=== PATIENT | male | born 1960 | race Caucasian/White ===

== ENCOUNTER 2019-03-18 14:59 | Inpatient (IN) | payer OTHER ==
[~2019-03-18] VITALS: Ht 178 cm; Wt 96.7 kg
--- NOTE | 2019-03-18 15:08 | NUR ---
SHIRA SHAH PLACED ON PT.
[2019-03-18 15:26] LABS: BASOPHILS % (AUTO) 0 % (0-10); EOSINOPHILS % (AUTO) 0 % (0-10); HEMATOCRIT 62 % (40-54); LYMPHOCYTES # (AUTO) 2.7 X 10^3 (1.0-4.0); LYMPHOCYTES % (AUTO) 10 % (12-44); MEAN CORPUSCULAR HEMOGLOBIN 31 PG (25-34); MEAN CORPUSCULAR HGB CONC 34 G/DL (32-36); MEAN CORPUSCULAR VOLUME 92 FL (80-99); MONOCYTES # (AUTO) 1.6 X 10^3 (0.0-1.0); MONOCYTES % (AUTO) 6 % (0-12); NEUTROPHILS # (AUTO) 21.4 X 10^3 (1.8-7.8); NEUTROPHILS % (AUTO) 83 % (42-75); PLATELET COUNT 110 10^3/uL (130-400); RED CELL DISTRIBUTION WIDTH 16.2 % (10.0-14.5); WHITE BLOOD COUNT 25.7 10^3/uL (4.3-11.0)
--- NOTE | 2019-03-18 15:30 | ED General ---
General Chief Complaint: Exposure Stated Complaint: AMS Source of Information: Patient Exam Limitations: No Limitations (LAZ DICKENS APRN) History of Present Illness Date Seen by Provider: Mar 18, 2019 Time Seen by Provider: 15:23 Initial Comments To ER with reports of altered mental status. He was reportedly not seen by a close friend for one week, the friend went to check on him today and found him to have an altered mental status. EMS was then summoned, on their arrival he was in fact altered, very cold to the touch and lethargic. She was found to be between 85 and 87, he is reported to be an alcoholic, the house was in a state of squalor . But while high and the toilet keeping with toilet paper suggesting no clubbing. There was also no heat in the house. Reportedly, he had been to [facility] last week and received an inhaler steroid and antibiotic, the friend isn't sure what for. Timing/Duration: 1 Week (up to 1 week) Severity: Moderate Associated Systoms: Denies Symptoms (LAZ DICKENS APRN) Allergies and Home Medications Allergies Coded Allergies: No Known Drug Allergies (Unverified , 03/18/19) Patient Home Medication List Home Medication List Reviewed: Yes (LAZ DICKENS APRN) Review of Systems Review of Systems Constitutional: see HPI, other (unable to obtain) (LAZ DICKENS APRN) Physical Exam Vital Signs Vital Signs - First Documented 03/18/19 15:08 Temp 30.8 Pulse 58 Resp 18 B/P (MAP) 116/100 (105) Pulse Ox 99 O2 Delivery Room Air (SHEREEN CASTILLO MD) Vital Signs Capillary Refill : (LAZ DICKENS APRN) Height, Weight, BMI Height: '" Weight: lbs. oz. kg; BMI Method: General Appearance: Chronically ill, Thin, Other (eyes are open, groaning mumbling verbal responses, GCS 11) Eyes: Bilateral Eye Normal Inspection, Bilateral Eye PERRL HEENT: PERRL/EOMI, Normal ENT Inspection, Other (no outwardly visible sign of head trauma) Neck: Full Range of Motion, Normal Inspection Respiratory: Normal Breath Sounds, No Accessory Muscle Use, No Respiratory Distress Cardiovascular: Normal Peripheral Pulses, Bradycardia Gastrointestinal: Non Tender, Soft Extremity: Slow Capillary Refill, Other (hands and feet, penis nose and lips are cyanotic and cold to the touch) Skin: Cyanosis, Pallor (LAZ DICKENS APRN) Focused Exam Lactate Level 03/18/19 15:35: Lactic Acid Level 2.89*H (SHEREEN CASTILLO MD) Lactic Acid Level Laboratory Tests Test 03/18/19 15:35 Lactic Acid Level 2.89 MMOL/L (0.50-2.00) *H (SHEREEN CASTILLO MD) Progress/Results/Core Measures Suspected Sepsis SIRS Temperature: Pulse: Respiratory Rate: Laboratory Tests 03/18/19 15:10: White Blood Count 25.7H Blood Pressure / Mean: 03/18/19 00:00: Laboratory Tests 03/18/19 15:10: Creatinine 3.32H, INR Comment 1.3, Platelet Count 110L, Total Bilirubin 4.6H (LAZ DICKENS APRN) Results/Orders Lab Results Laboratory Tests Test 03/18/19 15:07 03/18/19 15:10 03/18/19 15:28 03/18/19 15:30 Range/Units Urine Color BANDAR H Urine Clarity CLEAR Urine pH 5 5-9 Urine Specific [place] 1.015 L 1.016-1.022 Urine Protein 2+ H NEGATIVE Urine Glucose (UA) NEGATIVE NEGATIVE Urine Ketones 2+ H NEGATIVE Urine Nitrite POSITIVE H NEGATIVE Urine Bilirubin 2+ H NEGATIVE Urine Urobilinogen 8 H NORMAL MG/DL Urine Leukocyte Esterase 1+ H NEGATIVE Urine RBC (Auto) 1+ H NEGATIVE Urine RBC NONE /HPF Urine WBC RARE /HPF Urine Crystals NONE /LPF Urine Bacteria TRACE /HPF Urine Casts NONE /LPF Urine Mucus NEGATIVE /LPF Urine Culture Indicated YES Urine Opiates Screen NEGATIVE NEGATIVE Urine Oxycodone Screen NEGATIVE NEGATIVE Urine Methadone Screen NEGATIVE NEGATIVE Urine Propoxyphene Screen NEGATIVE NEGATIVE Urine Barbiturates Screen NEGATIVE NEGATIVE Ur Tricyclic Antidepressants Screen NEGATIVE NEGATIVE Urine Phencyclidine Screen NEGATIVE NEGATIVE Urine Amphetamines Screen NEGATIVE NEGATIVE Urine Methamphetamines Screen NEGATIVE NEGATIVE Urine Benzodiazepines Screen NEGATIVE NEGATIVE Urine Cocaine Screen NEGATIVE NEGATIVE Urine Cannabinoids Screen NEGATIVE NEGATIVE White Blood Count 25.7 H 4.3-11.0 10^3/uL Red Blood Count 6.74 H 4.35-5.85 10^6/uL Hemoglobin 21.0 H 13.3-17.7 G/DL Hematocrit 62 H 40-54 % Mean Corpuscular Volume 92 80-99 FL Mean Corpuscular Hemoglobin 31 25-34 PG Mean Corpuscular Hemoglobin Concent 34 32-36 G/DL Red Cell Distribution Width 16.2 H 10.0-14.5 % Platelet Count 110 L 130-400 10^3/uL Mean Platelet Volume 7.4-10.4 FL Neutrophils (%) (Auto) 83 H 42-75 % Lymphocytes (%) (Auto) 10 L 12-44 % Monocytes (%) (Auto) 6 0-12 % Eosinophils (%) (Auto) 0 0-10 % Basophils (%) (Auto) 0 0-10 % Neutrophils # (Auto) 21.4 H 1.8-7.8 X 10^3 Lymphocytes # (Auto) 2.7 1.0-4.0 X 10^3 Monocytes # (Auto) 1.6 H 0.0-1.0 X 10^3 Eosinophils # (Auto) 0.0 0.0-0.3 10^3/uL Basophils # (Auto) 0.0 0.0-0.1 10^3/uL Neutrophils % (Manual) 75 % Lymphocytes % (Manual) 10 % Monocytes % (Manual) 10 % Band Neutrophils 5 % Toxic Granulation 1+ Poikilocytosis MODERATE Anisocytosis Tear Drop Cells MODERATE Prothrombin Time 16.5 H 12.2-14.7 SEC INR Comment 1.3 0.8-1.4 Activated Partial Thromboplast Time 47 H 24-35 SEC Sodium Level 149 H 135-145 MMOL/L Potassium Level 2.1 *L 3.6-5.0 MMOL/L Chloride Level 101 98-107 MMOL/L Carbon Dioxide Level 21 21-32 MMOL/L Anion Gap 27 H 5-14 MMOL/L Blood Urea Nitrogen 80 H 7-18 MG/DL Creatinine 3.32 H 0.60-1.30 MG/DL Estimat Glomerular Filtration Rate 19 BUN/Creatinine Ratio 24 Glucose Level 208 H 70-105 MG/DL Calcium Level 10.2 H 8.5-10.1 MG/DL Corrected Calcium 10.1 8.5-10.1 MG/DL Magnesium Level 4.6 H 1.6-2.4 MG/DL Total Bilirubin 4.6 H 0.1-1.0 MG/DL Aspartate Amino Transf (AST/SGOT) 35 H 5-34 U/L Alanine Aminotransferase (ALT/SGPT) 149 H 0-55 U/L Alkaline Phosphatase 110 40-136 U/L Total Creatine Kinase 197 30-200 U/L Myoglobin 1160.0 H 10.0-92.0 NG/ML Total Protein 8.5 H 6.4-8.2 GM/DL Albumin 4.1 3.2-4.5 GM/DL Serum Alcohol < 10 <10 MG/DL Blood Gas Puncture Site R RAD Blood Gas Patient Temperature 30.8 Arterial Blood pH 7.49 H 7.37-7.43 Arterial Blood Partial Pressure CO2 22 L 35-45 MMHG Arterial Blood Partial Pressure O2 99 H 79-93 MMHG Arterial Blood HCO3 18 L 23-27 MMOL/L Arterial Blood Total CO2 18.4 L 21.0-31.0 MMOL/L Arterial Blood Oxygen Saturation 98 94-100 % Arterial Blood Base Excess -6.4 L -2.5-2.5 MMOL/L Dariel Test YES-POS Blood Gas Ventilator Setting NO Blood Gas Inspired Oxygen ROOM AIR Troponin I < 0.028 <0.028 NG/ML Test 03/18/19 15:35 Range/Units Lactic Acid Level 2.89 *H 0.50-2.00 MMOL/L (SHEREEN CASTILLO MD) My Orders Orders - SHEREEN CASTILLO MD Troponin I (03/18/19 16:28) Ns Iv 1000 Ml (Sodium Chloride 0.9%) (03/18/19 16:28) Lactated Ringers (Lr 1000 Ml Iv Solution (03/18/19 17:18) (SHEREEN CASTILLO MD) Medications Given in ED Current Medications Medications Dose Ordered Sig/Miguel A Route Start Time Stop Time Status Last Admin Dose Admin Piperacillin Sod/ Tazobactam Sod 4.5 gm/Sodium Chloride 100 ml @ 200 mls/hr ONCE ONCE IV 03/18/19 16:00 03/18/19 16:29 DC 03/18/19 16:51 200 MLS/HR Sodium Chloride 1,000 ml @ 0 mls/hr Q0M ONCE IV 03/18/19 16:28 03/18/19 16:30 DC 03/18/19 16:51 1,000 MLS/HR (SHEREEN CASTILLO MD) Vital Signs/I&O 03/18/19 15:08 Temp 30.8 Pulse 58 Resp 18 B/P (MAP) 116/100 (105) Pulse Ox 99 O2 Delivery Room Air (SHEREEN CASTILLO MD) Vital Signs/I&O Capillary Refill : (LAZ DICKENS APRN) Progress Note : Progress Note Seen and evaluated the patient with Laz Dickens APRN and agree with above except as indicated. Patient is quite cold with initial temperature near 30 C. Active warming with bear hugger initiated. Orders reviewed and I agree and include labs, EKG, CT head, chest x-ray will cultures and lactic acid. UA and Holman catheter obtained. Urine Brown concerning for myoglobinemia. Patient may have been on the floor for up to a week and EMS reports that he was not incontinent of urine at the scene. Concerns for significant dehydration. In this is running currently and we will continue with warm fluids when that is done. EKG does show left bundle branch block but no findings concerning for hyperkalemia. 1633: Potassium replacement initiated and magnesium ordered as well as troponin. Patient will be admitted to the ICU. 1710: I did discuss the case with Dr. Kilpatrick. Patient has received Zosyn 4.5 g IV. 1750: I did discuss the case with Dr. Shepard. We will add third liter of fluid with 1 L of LR now. This will exceeded 30 mL/kg IV bolus for severe sepsis. Patient is still at 31.3C currently. He is moaning and answering some simple questions. 1725: I attest focused exam at this time. Patient to the ICU. We will continue fluids after a 250 per hour 4 hours and then 150 an hour. He does have slow urine flow currently but does have flow. (SHEREEN CASTILLO MD) ECG Initial ECG Impression Date: Mar 18, 2019 Initial ECG Impression Time: 15:24 Initial ECG Rate: 58 Comment Sinus rhythm with left bundle-branch block. Some artifact noted making Read is somewhat more difficult. Does appear to have P waves. No evidence of ST elevation [place]. Interpreted by me. (SHEREEN CASTILLO MD) Diagnostic Imaging Diagonstic Imaging: Xray, CT Comments NAME: MARGARITO MERRITT [facility] REC#: [id number] PT STATUS: REG ER : 1960 PHYSICIAN: LAZ DICKENS APRN ADMIT DATE: 03/18/19/ER Draft POSDate of Exam:03/18/19 CHEST 1 VIEW, AP/PA ONLY INDICATION: Altered mental status. TECHNIQUE: A frontal chest was obtained at 3:31 PM. FINDINGS: The heart and mediastinal silhouette are normal. There is a normal variant of azygos lobe in the right upper lobe. There is some minimal right basilar atelectasis. There is some patchy infiltrate versus atelectasis in the left lateral base. There is no pneumothorax or pleural fluid. IMPRESSION: There is some patchy infiltrate versus atelectasis in the left lateral base. There is some minimal right basilar atelectasis. There is no other abnormal finding. Followup is recommended as clinically warranted. Dictated on workstation # [id number] Dict: 03/18/19 1548 Trans: 03/18/19 1551 [id number] Interpreted by: JENNIFER SESAY MD Electronically signed by: (LAZ DICKENS APRN) Diagonstic Imaging: CT Plain Films/CT/US/NM/MRI: head Comments [facility]. POS [place], [place] POS NAME: MARGARITO MERRITT [facility] REC#: [id number] PT STATUS: REG ER : 1960 PHYSICIAN: LAZ DICKENS APRN ADMIT DATE: 03/18/19/ER Draft POSDate of Exam:03/18/19 CT HEAD WO INDICATION: Altered mental status. TECHNIQUE: Routine non contrast-enhanced axial images were obtained from the skull base to the vertex. Auto Exposure Controls were utilized during the CT exam to meet ALARA standards for radiation dose reduction. COMPARISON: None. FINDINGS: The ventricles and cortical sulci are diffusely prominent, compatible with age-related volume loss. There is no midline shift or mass-effect. No acute intra-axial hemorrhage is seen. There are no abnormal areas of increased or decreased density to suggest acute hemorrhage or edema. No extra-axial masses or collections are present. The bony calvarium is intact. The visualized paranasal sinuses are unremarkable. The mastoid air cells are clear. IMPRESSION: 1. No acute intracranial abnormality. No CT evidence of mass, acute infarct or intracranial hemorrhage. Dictated on workstation # [id number] Dict: 03/18/19 1600 Trans: 03/18/19 1603 [id number] Interpreted by: SIERRA FELDMAN MD Electronically signed by: (SHEREEN CASTILLO MD) Departure Communication (Admissions) Time/Spoke to Admitting Phy: 17:10 (SHEREEN CASTILLO MD) Impression Primary Impression: Severe sepsis Additional Impressions: Left lower lobe pneumonia Qualified Codes: J18.1 - Lobar pneumonia, unspecified organism Urinary tract infection Qualified Codes: N30.00 - Acute cystitis without hematuria Acute renal failure Qualified Codes: N17.9 - Acute kidney failure, unspecified Hypothermia Qualified Codes: T68.XXXA - Hypothermia, initial encounter Disposition: 09 ADMITTED INPATIENT Condition: Critical Admissions Decision to Admit Reason: Admit from ER (General) Decision to Admit/Date: Mar 18, 2019 Time/Decision to Admit Time: 17:10 (SHEEREN CASTILLO MD) LAZ DICKENS APRN Mar 18, 2019 15:30 SHEREEN WALKER MD Mar 18, 2019 16:35 POS
[2019-03-18 15:33] LABS: ABG BASE EXCESS -6.4 MMOL/L (-2.5-2.5); ABG OXYGEN SATURATION 98 % (94-100); ABG PCO2 22 MMHG (35-45); ABG PH 7.49 (7.37-7.43); ABG PO2 99 MMHG (79-93); ABG TCO2 18.4 MMOL/L (21.0-31.0)
[2019-03-18 15:34] LABS: ALLENS TEST YES-POS; INSPIRED O2 ROOM AIR; PATIENT TEMP 30.8; VENTILATOR NO
[2019-03-18 15:37] LABS: BILIRUBIN,URINE 2+ (NEGATIVE); CLARITY,URINE CLEAR; COLOR,URINE AMBER; GLUCOSE, URINE (UA) NEGATIVE (NEGATIVE); KETONES,URINE 2+ (NEGATIVE); LEUKOCYTE ESTERASE ,URINE 1+ (NEGATIVE); NITRITE,URINE POSITIVE (NEGATIVE); PH,URINE 5 (5-9); PROTEIN,URINE 2+ (NEGATIVE)
--- NOTE | 2019-03-18 15:39 | NUR ---
WHEN ANSWERING QUESTIONS ABOUT ETOH USE, ACCORDING TO EMS THE PT'S FRIEND WHO FOUND HIM DOWN STATED THAT THE PT IS AN ALCOHOLIC WITH EVERYDAY USE.
--- NOTE | 2019-03-18 15:40 | NUR ---
PT'S FRIEND ALSO STATED PT SMOKED 1-2 PACKS A DAY.
[2019-03-18 15:50] LABS: BACTERIA,URINE TRACE /HPF; WBC,URINE RARE /HPF
[2019-03-18 15:50] LABS: INR 1.3 (0.8-1.4); PROTHROMBIN TIME PATIENT 16.5 SEC (12.2-14.7)
[2019-03-18 15:51] LABS: ALANINE AMINOTRANSFERASE 149 U/L (0-55); ALBUMIN 4.1 GM/DL (3.2-4.5); ALKALINE PHOSPHATASE 110 U/L (40-136); BILIRUBIN,TOTAL 4.6 MG/DL (0.1-1.0); BUN/CREATININE RATIO 24; CALCIUM 10.2 MG/DL (8.5-10.1); CARBON DIOXIDE 21 MMOL/L (21-32); CHLORIDE 101 MMOL/L (98-107); CREATINE KINASE 197 U/L (30-200); CREATININE SERUM 3.32 MG/DL (0.60-1.30); GFR ESTIMATED 19; GLUCOSE 208 MG/DL (70-105); SODIUM 149 MMOL/L (135-145); TOTAL PROTEIN 8.5 GM/DL (6.4-8.2)
--- NOTE | 2019-03-18 15:51 | Diagnostic Imaging Report ---
INDICATION: Altered mental status. TECHNIQUE: A frontal chest was obtained at 3:31 PM. FINDINGS: The heart and mediastinal silhouette are normal. There is a normal variant of azygos lobe in the right upper lobe. There is some minimal right basilar atelectasis. There is some patchy infiltrate versus atelectasis in the left lateral base. There is no pneumothorax or pleural fluid. IMPRESSION: There is some patchy infiltrate versus atelectasis in the left lateral base. There is some minimal right basilar atelectasis. There is no other abnormal finding. Followup is recommended as clinically warranted. Dictated by: Dictated on workstation # [id number]
[2019-03-18 15:53] LABS: POTASSIUM 2.1 MMOL/L (3.6-5.0)
[2019-03-18] MEDS ORDERED: PIPERACILLIN SODIUM/TAZOBACTAM 4.5 GM in NS (IVPB) 100 ML IV ONE (16:00)
--- NOTE | 2019-03-18 16:00 | NUR ---
1 LITER NS STARTED BY EMS IN AT THIS TIME.
--- NOTE | 2019-03-18 16:03 | Diagnostic Imaging Report ---
INDICATION: Altered mental status. TECHNIQUE: Routine non contrast-enhanced axial images were obtained from the skull base to the vertex. Auto Exposure Controls were utilized during the CT exam to meet ALARA standards for radiation dose reduction. COMPARISON: None. FINDINGS: The ventricles and cortical sulci are diffusely prominent, compatible with age-related volume loss. There is no midline shift or mass-effect. No acute intra-axial hemorrhage is seen. There are no abnormal areas of increased or decreased density to suggest acute hemorrhage or edema. No extra-axial masses or collections are present. The bony calvarium is intact. The visualized paranasal sinuses are unremarkable. The mastoid air cells are clear. IMPRESSION: 1. No acute intracranial abnormality. No CT evidence of mass, acute infarct or intracranial hemorrhage. Dictated by: Dictated on workstation # [id number]
[2019-03-18 16:07] LABS: AMPHETAMINE SCREEN, URINE NEGATIVE (NEGATIVE); BARBITURATE SCREEN URINE NEGATIVE (NEGATIVE); BENZODIAZEPINES SCREEN URINE NEGATIVE (NEGATIVE); CANNABINOID SCREEN, URINE NEGATIVE (NEGATIVE); COCAINE SCREEN URINE NEGATIVE (NEGATIVE); METHADONE STAT NEGATIVE (NEGATIVE); METHAMPHETAMINE SCREEN URINE S NEGATIVE (NEGATIVE); OPIATE SCREEN URINE NEGATIVE (NEGATIVE); OXYCODONE STAT NEGATIVE (NEGATIVE); PROPOXYPHENE STAT NEGATIVE (NEGATIVE); TRICYCLIC ANTIDEPRESSANTS SCRE NEGATIVE (NEGATIVE)
[2019-03-18 16:15] LABS: BAND NEUTROPHILS 5 %; LYMPHOCYTES % (MANUAL) 10 %; MONOCYTES % (MANUAL) 10 %; NEUTROPHILS % (MANUAL) 75 %; POIKILOCYTOSIS MODERATE; TEAR DROP CELLS MODERATE
[2019-03-18 16:16] LABS: TOXIC GRANULATION/VACUOLAZATIO 1+
[2019-03-18] MEDS ORDERED: NS IV 1000 ML 1,000 ML IV ONE (16:28)
[2019-03-18] MEDS: POTASSIUM CL 10MEQ/50ML IVPB 50 ML IV SCH ×2 (16:51→18:50)
[2019-03-18] MEDS ORDERED: LACTATED RINGERS 1,000 ML IV ONE (17:18)
--- NOTE | 2019-03-18 17:40 | NUR ---
PT ABLE TO FOLLOW COMMANDS SUCH STRAIGHTEN ARM FOR B/P CUFF. TRYING TO SPEAK BUT UNABLE TO SAY WHERE HE IS.
--- NOTE | 2019-03-18 18:03 | NUR ---
Pt arrives to room cu-7 via cart with ed nurse. pt placed in icu bed and this nurse and 2 other rn's and journeyman powerhouse operator proceeded to clean pt for approximately 40 minutes and placed pt on monitors and bear hugger. pt still somewhat incoherent but is responding to voiced questions. pt covered in layers of dirt and feces.
[2019-03-18 18:15] VITALS: BP 128/81
[2019-03-18] MEDS ORDERED: EPINEPHrine 1 MG INJECTION 2 MG in NS (IVPB) 250 ML IV SCH (18:30)
[2019-03-18] MEDS ORDERED: CATHETER FLUSH 10 ML SYR IV PRN (18:30)
[2019-03-18] MEDS ORDERED: LACTATED RINGERS 1,000 ML IV SCH (18:30)
[2019-03-18] MEDS: NOREPINEPHRINE 4 MG in NS (IVPB) 250 ML IV SCH (18:46)
[2019-03-18] MEDS: VASOPRESSIN INJECTION 20 UNIT in NORMAL SALINE 100 ML IV SCH (18:46)
[2019-03-18 19:00] VITALS: BP 99/65
--- NOTE | 2019-03-18 19:32 | History & Physical-Hospitalist ---
History of Present Illness HPI/Chief Complaint Chief complaint: Found down at home HPI: This is a 59yo[facility] clinic clinic Pt of [facility] who was brought in after being found down at home by his friend, probably for about three days. Pt was foundto be hypothermic and severe UTI with renal failure and pneumonia. Pt remains with altered mental status and appears to be gravely ill. His prognosis is extremely poor. Friend is at the bedside and does not know of any family that he has. Source: RN/MD Exam Limitations: clinical condition Date Seen 03/18/19 Time Seen by a Provider: 17:00 Attending Physician Tish Kilpatrick DO [facility] Referring Physician Date of Admission Mar 18, 2019 at 17:20 Home Medications & Allergies Home Medications Reviewed patient Home Medication Reconciliation performed by pharmacy medication reconciliations crime scene technician and/or nursing. Patients Allergies have been reviewed. Allergies Allergies Coded Allergies No Known Drug Allergies (Ntasenjtse48/6/19) Past Cgyllvb-Xoqycs-Nyxakm Hx Past Med/Social Hx: Reviewed Nursing Past Med/Soc Hx, Reviewed and Corrections made Patient Social History Marrital Status: single Alcohol Use: Regular Use Recreational Drug Use: No (UNABLE TO ANSWER ) Smoking Status: Current Everyday Smoker Type Used: Cigarettes Recent Foreign Travel: No Contact w/other who traveled: No Recent Infectious Disease Expo: No Review of Systems Constitutional: see HPI Physical Exam Physical Exam Vital Signs Vital Signs - First Documented 03/18/19 15:08 Temp 30.8 Pulse 58 Resp 18 B/P (MAP) 116/100 (105) Pulse Ox 99 O2 Delivery Room Air Capillary Refill : Greater Than 3 Seconds Height, Weight, BMI Height: '" Weight: lbs. oz. kg; 25.00 BMI Method: General Appearance: Chronically ill, Cachetic, Moderate Distress Respiratory: Decreased Breath Sounds, Wheezing Cardiovascular: Regular Rate, Rhythm Neurologic/Psychiatric: Alert Results Results/Procedures Labs Laboratory Tests 03/18/19 15:10 03/19/19 03:10 03/19/19 12:55 Patient resulted labs reviewed. Assessment/Plan Admission Diagnosis Assessment: AMS ARF Found down at home for 3 days Cachexia ETOHism Plan: Monitor in ICU Hypothermia treatment Admission Status: Inpatient Order (span 2 midnights) Reason for Inpatient Admission: multisystem organ failure Diagnosis/Problems Diagnosis/Problems (1) Severe sepsis Status: Acute (2) Hypothermia Status: Acute Qualifiers: Encounter type: initial encounter Qualified Codes: T68.XXXA - Hypothermia, initial encounter (3) Acute renal failure Status: Acute Qualifiers: Acute renal failure type: unspecified Qualified Codes: N17.9 - Acute kidney failure, unspecified (4) Left lower lobe pneumonia Status: Acute Qualifiers: Pneumonia type: due to unspecified organism Qualified Codes: J18.1 - Lobar pneumonia, unspecified organism (5) Urinary tract infection Status: Acute Qualifiers: Urinary tract infection type: acute cystitis Hematuria presence: without hematuria Qualified Codes: N30.00 - Acute cystitis without hematuria TISH KILPATRICK DO Mar 18, 2019 19:32 POS
[2019-03-18 20:00] VITALS: BP 99/63
[2019-03-18 21:00] VITALS: BP 113/64
[2019-03-18 22:00] VITALS: BP 107/57
[2019-03-18] MEDS: PIPERACILLIN/TAZO 4.5 GM/NS 100 ML IV SCH ×2 (22:22)
[2019-03-18] MEDS: LACTATED RINGERS 1,000 ML IV SCH (22:28)
[2019-03-18 23:00] VITALS: BP 117/63
[2019-03-19] VITALS (23 sets, daily range): BP systolic 102–137; BP diastolic 55–86
[2019-03-19] MEDS: NOREPINEPHRINE 4 MG in NS (IVPB) 250 ML IV SCH ×3 (02:39→19:37)
[2019-03-19] MEDS: VASOPRESSIN INJECTION 20 UNIT in NORMAL SALINE 100 ML IV SCH ×3 (02:40→19:37)
--- NOTE | 2019-03-19 03:41 | Pulmonary Consultation ---
LOUIS GILMORE A MEDICAL STUDENT 03/19/19 0341: History of Present Illness History of Present Illness Date of Consultation 03/19/19 03:33 Time Seen by Provider: 03:34 Date of Admission History of Present Illness This is a 59 year old male who was admitted to the ICU from the ED for altered mental status. Pt was found to be altered and had a temperature of 30C on arrival to ED. Pt was started on active warming with Severiano hugger and warm IVF. Pt temperature currently 37.5C. Pt was found to have hypokalemia and was started on potassium replacement. Per report, pt was found by a friend who stated that the patient is reported to be an alcoholic and was living in a house that was without heat and was recently seen at [facility] and given an antibiotic and inhaler. Pt still currently confused and sleepy but arousable. Allergies and Home Medications Allergies Coded Allergies: No Known Drug Allergies (Unverified , 03/18/19) Past Yyhcyjx-Vhnedo-Qlkueb Hx Patient Social History Alcohol Use: Regular Use Recreational Drug Use: No (UNABLE TO ANSWER ) Smoking Status: Current Everyday Smoker Type Used: Cigarettes Recent Foreign Travel: No Contact w/Someone Who Travel: No Recent Infectious Disease Expo: No Physical Abuse: No Sexual Abuse: No Mistreated: No Fear: No Review of Systems Other limited secondary to pt clinical condition Sepsis Event Evaluation Height, Weight, BMI Height: '" Weight: lbs. oz. kg; 25.00 BMI Method: Exam Exam Vital Signs Date Time Temp Pulse Resp B/P (MAP) Pulse Ox O2 Delivery O2 Flow Rate FiO2 03/19/19 03:00 37.5 77 23 127/65 (85) 93 Room Air 03/19/19 02:00 37.5 76 25 128/63 (84) 93 Room Air 03/19/19 01:00 80 03/19/19 01:00 37.5 77 24 123/63 (83) 93 Room Air 03/19/19 00:00 95 Room Air 03/19/19 00:00 37.6 82 27 122/66 (84) 92 Room Air 03/18/19 23:00 37.6 92 29 117/63 (81) 92 Room Air 03/18/19 22:00 36.7 84 15 107/57 (74) 95 Room Air 03/18/19 21:00 35.7 73 20 113/64 (80) 97 Room Air 03/18/19 20:00 95 Room Air 03/18/19 20:00 34.5 70 23 99/63 (75) 97 Room Air 03/18/19 19:00 62 03/18/19 19:00 33.3 62 23 99/65 (76) 97 Room Air 03/18/19 18:15 32.4 59 12 128/81 (97) 98 Room Air 03/18/19 18:09 59 03/18/19 18:01 31.5 53 16 123/81 (105) 99 Room Air 03/18/19 15:08 30.8 58 18 116/100 (105) 99 Room Air I & O 03/19/19 07:00 Intake Total 3320 ml Output Total 190 ml Balance 3130 ml Height & Weight Height: '" Weight: lbs. oz. kg; 25.00 BMI Method: General Appearance: Chronically ill, Thin, Other (awakens to verbal stimulation, answers some questions) HEENT: PERRL/EOMI, Normal ENT Inspection, Other (no outwardly visible sign of head trauma) Neck: Full Range of Motion, Normal Inspection Respiratory: Normal Breath Sounds, No Accessory Muscle Use, No Respiratory Distress Cardiovascular: Normal Peripheral Pulses, Bradycardia Capillary Refill: Greater Than 3 Seconds Gastrointestinal: normal bowel sounds, non tender, soft Extremity: No Calf Tenderness, No Pedal Edema, Other Neurologic/Psychiatric: 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; Other (awakens to verbal stimulation, altert to person and somewhat to place, answers some questions) Skin: Normal Color; No Cyanosis; Pallor Results Lab Laboratory Tests 03/18/19 15:10 Assessment/Plan Assessment/Plan Hypothermia -pt currently at 37.5C Hypokalemia -KCl replacement Altered mental status -suspected secondary to hypothermia and malnutrition -ct head negative Hypernatremia -suspected secondary to dehydration -continue LR 150cc/hr Acute Kidney Injury -Creat 3.32, GFR 19 -Continue LR 150cc/hr Sepsis -pt received 30cc/kg bolus in ED -continue Zosyn empiric coverage -lactic down trending from 2.89 to now 1.95 Respiratory alkalosis - ABG showed Ph 7.49 with CO2 of 22 and bicarb 18 -CXR shows patchy infiltrate vs atelectasis in left lateral base with minimal right basilar atelectasis Leukocytosis -improving, down from 25.7 to 21.4 Malnutrition -banana bag Alcohol abuse -thiamine GILDARDO SHEPARD DO 03/19/19 0857: History of Present Illness History of Present Illness Time Seen by Provider: 08:52 History of Present Illness This is a 59 year old male who was admitted to the ICU from the ED for altered mental status. Pt was found to be altered and had a temperature of 30C on arrival to ED. Pt was started on active warming with Severiano hugger and warm IVF. Pt temperature currently 37.5C. Pt was found to have hypokalemia and was started on potassium replacement. Per report, pt was found by a friend who stated that the patient is reported to be an alcoholic and was living in a house that was without heat and was recently seen at [facility] and given an antibiotic and inhaler. Pt still currently confused and sleepy but arousable. Allergies and Home Medications Allergies Coded Allergies: No Known Drug Allergies (Unverified , 03/18/19) Review of Systems Time Seen by Provider: 08:53 Exam Exam General Appearance: Chronically ill, Thin, Other (awakens to verbal stimulation, answers some questions) HEENT: PERRL/EOMI, Normal ENT Inspection, Other (no outwardly visible sign of head trauma) Neck: Full Range of Motion, Normal Inspection Respiratory: Normal Breath Sounds, No Accessory Muscle Use, No Respiratory Distress Cardiovascular: Normal Peripheral Pulses, Bradycardia Gastrointestinal: normal bowel sounds, non tender, soft Extremity: No Pedal Edema, Other Neurologic/Psychiatric: Other (awakens to verbal stimulation, altert to person and somewhat to place, answers some questions) Skin: Pallor Assessment/Plan Assessment/Plan Hypothermia -pt currently at 37.5C Hypokalemia -KCl replacement -Repeat labs later today Altered mental status -suspected secondary to hypothermia and malnutrition -ct head negative Hypernatremia secondary to dehydration -Give a liter bolus of LR -suspected secondary to dehydration -continue LR 150cc/hr Acute Kidney Injury -Creat 3.32, GFR 19 -Continue LR 150cc/hr Sepsis -pt received 30cc/kg bolus in ED -continue Zosyn empiric coverage -lactic down trending from 2.89 to now 1.95 Respiratory alkalosis - ABG showed Ph 7.49 with CO2 of 22 and bicarb 18 -CXR shows patchy infiltrate vs atelectasis in left lateral base with minimal right basilar atelectasis Leukocytosis -improving, down from 25.7 to 21.4 Malnutrition -banana bag Alcohol abuse -thiamine Supervisory-Addendum Brief Verification & Attestation Participated in pt care: history Personally performed: exam, history Care discussed with: Medical Student Procedures: n/a Verification and Attestation of Medical Student E/M Service A medical student performed and documented this service in my presence. I reviewed and verified all information documented by the medical student and made modifications to such information, when appropriate. I personally performed the physical exam and medical decision making. Gildardo Shepard, Mar 19, 2019,08:57 LOUIS GILMORE MEDICAL STUDENT Mar 19, 2019 03:41 GILDARDO MARTI DO Mar 19, 2019 08:57 POS
[2019-03-19 03:47] LABS: BASOPHILS % (AUTO) 0 % (0-10); EOSINOPHILS % (AUTO) 0 % (0-10); HEMATOCRIT 51 % (40-54); HEMOGLOBIN 17.1 G/DL (13.3-17.7); LYMPHOCYTES % (AUTO) 4 % (12-44); MEAN CORPUSCULAR HEMOGLOBIN 31 PG (25-34); MEAN CORPUSCULAR HGB CONC 34 G/DL (32-36); MEAN CORPUSCULAR VOLUME 92 FL (80-99); MONOCYTES % (AUTO) 9 % (0-12); NEUTROPHILS # (AUTO) 18.5 X 10^3 (1.8-7.8); NEUTROPHILS % (AUTO) 86 % (42-75); PLATELET COUNT 99 10^3/uL (130-400); RED CELL DISTRIBUTION WIDTH 15.3 % (10.0-14.5); WHITE BLOOD COUNT 21.4 10^3/uL (4.3-11.0)
[2019-03-19 04:08] LABS: CALCIUM 7.9 MG/DL (8.5-10.1); CREATININE SERUM 3.06 MG/DL (0.60-1.30); MAGNESIUM 3.2 MG/DL (1.6-2.4); PHOSPHORUS 4.5 MG/DL (2.3-4.7); POTASSIUM 2.9 MMOL/L (3.6-5.0)
[2019-03-19] MEDS: POTASSIUM CL 10MEQ/50ML IVPB 50 ML IV SCH ×4 (05:11→08:27)
[2019-03-19] MEDS: KCL 20 MEQ TAB (K-DUR) PO SCH (05:11)
[2019-03-19] MEDS: MAGNESIUM 1 GM/100 ML IVPB 100 ML IV SCH (05:11)
[2019-03-19] MEDS ORDERED: POTASSIUM CL 10MEQ/50ML IVPB 250 ML IV ONE (05:31)
[2019-03-19] MEDS: LACTATED RINGERS 1,000 ML IV SCH ×4 (05:33→20:51)
[2019-03-19] MEDS ORDERED: THIAMINE INJECTION 100 MG, FOLIC ACID INJECTION 1 MG, VITAMIN MULTI INJECTION 10 ML, MA... IV SCH ×5 (05:45)
[2019-03-19] MEDS ORDERED: LACTATED RINGERS 1,000 ML IV ONE (05:45)
[2019-03-19] MEDS: PIPERACILLIN/TAZO 4.5 GM/NS 100 ML IV SCH ×6 (05:49→22:15)
[2019-03-19] MEDS ORDERED: POTASSIUM CL 10MEQ/50ML IVPB 50 ML IV ONE (06:00)
[2019-03-19 06:52] LABS: ABG BASE EXCESS -2.6 MMOL/L (-2.5-2.5); ABG OXYGEN SATURATION 97 % (94-100); ABG PCO2 25 MMHG (35-45); ABG PH 7.52 (7.37-7.43); ABG PO2 87 MMHG (79-93); ABG TCO2 20.9 MMOL/L (21.0-31.0)
[2019-03-19 06:57] LABS: ALLENS TEST POSITIVE; INSPIRED O2 ROOM AIR; PATIENT TEMP 36.1; VENTILATOR NO
[2019-03-19] MEDS ORDERED: LACTATED RINGERS 1,000 ML IV SCH (07:00)
--- NOTE | 2019-03-19 08:06 | Diagnostic Imaging Report ---
INDICATION: Dyspnea. Comparison made with prior examination 03/18/2019. FINDINGS: There is cardiomegaly. There is some venous congestion. There are patchy bibasilar infiltrates. There is no pleural effusion or pneumothorax. Mediastinum is unremarkable. IMPRESSION: Patchy bibasilar pulmonary infiltrates. Cardiomegaly and mild central pulmonary venous congestion. Dictated by: Dictated on workstation # [id number]
[2019-03-19] MEDS ORDERED: RT-ALBUINH IH (09:01)
--- NOTE | 2019-03-19 09:01 | NUR ---
SPOKE WITH THE GENTLEMAN IN THE PATIENTS ROOM. HE STATES WHEN HE TOOK HIM TO THE WALK IN CLINIC AT [facility] RECENTLY HE HAD TOLD THEM HE WAS NOT CURRENTLY TAKING ANY MEDICATION. I CALLED [facility] TO SEE WHAT WAS FILLED FROM THE WALK IN VISIT, THEY FILLED: 03-12-19 ZPAK 03-12-19 PREDNISONE 20MG 2 DAILY X 5 DAYS #10 03-12-19 PROAIR INHALER IT IS UNCLEAR IF THE PATIENT TOOK ALL OF THE ANTIBIOTIC AND STEROID BUT IT SHOULD BE FINISHED IF TAKEN PROPERLY. I DID NOT INCLUDE THEM ON THE MED REC BUT DID ADD THE PROAIR INHALER. FRIEND STATES HE DOES NOT HAVE A PHARMACY NOR A WAY TO PAY FOR MEDICATIONS. HE HAS AN APPOINTMENT SET UP WITH [facility] FOR THE BUT HE HAS NOT ESTABLISHED CARE WITH ANYONE YET. I LEFT THE PREFERRED PHARMACY BLANK AT THIS TIME.
--- NOTE | 2019-03-19 10:52 | Progress Note - Hospitalist ---
[facility] 03/19/19 1052: Subjective HPI/CC On Admission Date Seen by Provider: Mar 19, 2019 Time Seen by Provider: 07:27 Subjective/Events-last exam * Pt was minimally responsive when asked questions he would sometimes answer yes or no * He did report not having any pain or headache * He did not respond to difficulty breathing or cough questions, but denied abdominal pain * He was very lethargic and unresponsive for the majority of the exam Review of Systems Cardiovascular: No: Chest Pain Gastrointestinal: No: Abdominal Pain Focused Exam Lactate Level 03/18/19 17:53: Lactic Acid Level 2.63*H 03/18/19 19:53: Lactic Acid Level 2.16*H 03/18/19 21:55: Lactic Acid Level 1.95 Objective Exam Vital Signs Vital Signs Date Time Temp Pulse Resp B/P (MAP) Pulse Ox O2 Delivery O2 Flow Rate FiO2 03/19/19 10:00 36.8 73 13 124/64 (84) 93 Room Air Capillary Refill : Greater Than 3 Seconds General Appearance: Severe Distress, Thin Respiratory: Chest Non Tender, Lungs Clear, Normal Breath Sounds, No Accessory Muscle Use, No Respiratory Distress Cardiovascular: Regular Rate, Rhythm, No Murmur, Normal Peripheral Pulses Extremity: Non Tender, No Calf Tenderness, No Pedal Edema Neurologic/Psychiatric: No Alert, 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, No Normal Mood/Affect; Disoriented Skin: Normal Color, Warm/Dry Results/Procedures Lab Laboratory Tests 03/18/19 15:10 03/19/19 03:10 Patient resulted labs reviewed. Assessment/Plan Assessment and Plan Assess & Plan/Chief Complaint Assessment: Altered Mental Status Hx of Alcohol abuse Recent Severe Hypothermia UTI Lower Lobe PNA Sepsis Plan: Continue antibiotics for UTI and PNA Monitor temperature to maintain normal range IV fluids Monitor mental status Alcohol withdrawal prophylaxis DVT prophylaxis TISH HESS DO 03/19/19 1716: Subjective Subjective/Events-last exam Patient not much improved Friend at the bedside Objective Exam General Appearance: Chronically ill, Cachetic, Mild Distress Respiratory: Crackles, Decreased Breath Sounds Assessment/Plan Assessment and Plan Assess & Plan/Chief Complaint Multisystem organ failure Prognosis poor Diagnosis/Problems Diagnosis/Problems (1) Urinary tract infection Status: Acute Qualifiers: Qualified Codes: N30.00 - Acute cystitis without hematuria (2) Acute renal failure Status: Acute Qualifiers: Qualified Codes: N17.9 - Acute kidney failure, unspecified (3) Hypothermia Status: Acute Qualifiers: Qualified Codes: T68.XXXA - Hypothermia, initial encounter (4) Severe sepsis Status: Acute (5) Left lower lobe pneumonia Status: Acute Qualifiers: Qualified Codes: J18.1 - Lobar pneumonia, unspecified organism Supervisory-Addendum Brief Verification & Attestation Participated in pt care: history, MDM, physical Personally performed: exam, history, MDM, supervision of care Care discussed with: Medical Student Procedures: n/a Results interpretation: Verified all documentation Verification and Attestation of Medical Student E/M Service A medical student performed and documented this service in my presence. I review ed and verified all information documented by the medical student and made modifications to such information, when appropriate. I personally performed the physical exam and medical decision making. Tish Hess, Mar 19, 2019,17:16 [facility] Mar 19, 2019 10:52 TISH MENDES DO Mar 19, 2019 17:16 POS
[2019-03-19] MEDS: THIAMINE INJECTION 100 MG, FOLIC ACID INJECTION 1 MG, VITAMIN MULTI INJECTION 10 ML, MA... IV SCH ×5 (12:33)
[2019-03-19 13:03] LABS: BASOPHILS % (AUTO) 0 % (0-10); EOSINOPHILS % (AUTO) 0 % (0-10); HEMATOCRIT 45 % (40-54); LYMPHOCYTES # (AUTO) 1.7 X 10^3 (1.0-4.0); LYMPHOCYTES % (AUTO) 8 % (12-44); MEAN CORPUSCULAR HEMOGLOBIN 31 PG (25-34); MEAN CORPUSCULAR HGB CONC 34 G/DL (32-36); MEAN CORPUSCULAR VOLUME 92 FL (80-99); MEAN PLATELET VOLUME 12.8 FL (7.4-10.4); MONOCYTES # (AUTO) 1.6 X 10^3 (0.0-1.0); MONOCYTES % (AUTO) 7 % (0-12); NEUTROPHILS # (AUTO) 18.4 X 10^3 (1.8-7.8); NEUTROPHILS % (AUTO) 85 % (42-75); PLATELET COUNT 87 10^3/uL (130-400); RED CELL DISTRIBUTION WIDTH 15.3 % (10.0-14.5); WHITE BLOOD COUNT 21.7 10^3/uL (4.3-11.0)
[2019-03-19 13:24] LABS: ALBUMIN 2.4 GM/DL (3.2-4.5); BILIRUBIN,TOTAL 2.8 MG/DL (0.1-1.0); CALCIUM 7.4 MG/DL (8.5-10.1); CREATININE SERUM 2.52 MG/DL (0.60-1.30); PHOSPHORUS 3.2 MG/DL (2.3-4.7); POTASSIUM 2.9 MMOL/L (3.6-5.0)
--- NOTE | 2019-03-19 14:08 | NUR ---
Initial visit: Spoke with pt's friend (Naresh) who call the police for a wellness check on the pt when he did not answer his door. he said they found the pt on his bed, cold, and near . Naresh said he did not know what caused the pt's condition, be was thankful he found the pt before the pt . I followed up with the pt one on one: He said he recalled me from when his in the hospital (2-3 years ago). The pt did not demonstrate ability to converse at length. I offered prayer and supportive presence.
[2019-03-19 15:05] LABS: AMPHETAMINE SCREEN, URINE NEGATIVE (NEGATIVE); BARBITURATE SCREEN URINE NEGATIVE (NEGATIVE); BENZODIAZEPINES SCREEN URINE NEGATIVE (NEGATIVE); CANNABINOID SCREEN, URINE NEGATIVE (NEGATIVE); COCAINE SCREEN URINE NEGATIVE (NEGATIVE); METHADONE STAT NEGATIVE (NEGATIVE); METHAMPHETAMINE SCREEN URINE S NEGATIVE (NEGATIVE); OPIATE SCREEN URINE NEGATIVE (NEGATIVE); OXYCODONE STAT NEGATIVE (NEGATIVE); PROPOXYPHENE STAT NEGATIVE (NEGATIVE); TRICYCLIC ANTIDEPRESSANTS SCRE NEGATIVE (NEGATIVE)
[2019-03-19] MEDS: CHLORHEXIDINE 0.12% SOLN 15 ML (PERIDEX) UDC PO SCH ×2 (16:01→22:33)
--- NOTE | 2019-03-19 17:07 | NUR ---
Received social service consult and investigation pending into pt's psych-social situation.
[2019-03-20] VITALS (12 sets, daily range): BP systolic 100–121; BP diastolic 55–75
[2019-03-20 03:11] LABS: BASOPHILS % (AUTO) 0 % (0-10); EOSINOPHILS % (AUTO) 0 % (0-10); HEMATOCRIT 44 % (40-54); HEMOGLOBIN 14.4 G/DL (13.3-17.7); LYMPHOCYTES # (AUTO) 1.8 X 10^3 (1.0-4.0); LYMPHOCYTES % (AUTO) 10 % (12-44); MEAN CORPUSCULAR HEMOGLOBIN 31 PG (25-34); MEAN CORPUSCULAR HGB CONC 33 G/DL (32-36); MEAN CORPUSCULAR VOLUME 96 FL (80-99); MONOCYTES # (AUTO) 1.2 X 10^3 (0.0-1.0); MONOCYTES % (AUTO) 6 % (0-12); NEUTROPHILS # (AUTO) 15.7 X 10^3 (1.8-7.8); NEUTROPHILS % (AUTO) 84 % (42-75); PLATELET COUNT 66 10^3/uL (130-400); RED CELL DISTRIBUTION WIDTH 15.3 % (10.0-14.5); WHITE BLOOD COUNT 18.7 10^3/uL (4.3-11.0)
[2019-03-20] MEDS: LACTATED RINGERS 1,000 ML IV SCH (03:25)
[2019-03-20 03:27] LABS: CALCIUM 7.6 MG/DL (8.5-10.1); CREATININE SERUM 1.8 MG/DL (0.60-1.30); MAGNESIUM 3.2 MG/DL (1.6-2.4); PHOSPHORUS 3.3 MG/DL (2.3-4.7); POTASSIUM 2.9 MMOL/L (3.6-5.0)
[2019-03-20] MEDS: NOREPINEPHRINE 4 MG in NS (IVPB) 250 ML IV SCH ×3 (03:31→17:47)
[2019-03-20] MEDS: VASOPRESSIN INJECTION 20 UNIT in NORMAL SALINE 100 ML IV SCH ×3 (03:32→17:47)
--- NOTE | 2019-03-20 04:20 | Pulmonary Progress Note ---
LOUIS GILMORE A MEDICAL STUDENT 03/20/19 0420: Subjective Date Seen by a Provider: Mar 20, 2019 Time Seen by a Provider: 04:15 Subjective/Events-last exam PT states feeling a little bit better, pt able to communicate more today but remains slightly disoriented. Pt denies any trouble breathing, pain, or any other complaints at this time besides "feeling tired" Sepsis Event Evaluation Height, Weight, BMI Height: '" Weight: lbs. oz. kg; 25.00 BMI Method: Focused Exam Lactate Level 03/18/19 17:53: Lactic Acid Level 2.63*H 03/18/19 19:53: Lactic Acid Level 2.16*H 03/18/19 21:55: Lactic Acid Level 1.95 Exam Exam Vital Signs Date Time Temp Pulse Resp B/P (MAP) Pulse Ox O2 Delivery O2 Flow Rate FiO2 03/20/19 04:00 66 14 107/68 (81) 97 Room Air 03/20/19 03:58 36.5 03/20/19 03:00 68 12 120/73 (89) 97 Room Air 03/20/19 02:00 63 14 112/68 (83) 97 Room Air 03/20/19 01:00 63 15 121/66 (84) 97 Room Air 03/20/19 01:00 65 03/20/19 00:11 36.7 03/20/19 00:00 97 Room Air 03/20/19 00:00 64 17 118/68 (85) 97 Room Air 03/19/19 23:00 63 15 117/71 (86) 97 Room Air 03/19/19 22:00 63 16 119/77 (91) 98 Room Air 03/19/19 21:00 91 16 121/74 (90) 98 Room Air 03/19/19 20:50 36.2 03/19/19 20:00 61 16 102/55 (71) 98 Room Air 03/19/19 20:00 97 Room Air 03/19/19 19:00 65 03/19/19 19:00 67 16 114/86 (95) 97 Room Air 03/19/19 18:00 63 17 121/75 (90) 94 Room Air 03/19/19 17:00 60 18 121/64 (83) 95 Room Air 03/19/19 16:00 94 Room Air 03/19/19 16:00 64 19 114/59 (77) 95 Room Air 03/19/19 15:00 63 21 107/60 (76) 96 Room Air 03/19/19 14:00 64 44 113/69 (84) 94 Room Air 03/19/19 13:00 Room Air 03/19/19 12:45 67 03/19/19 12:00 36.8 70 23 129/64 (85) 92 Room Air 03/19/19 12:00 94 Room Air 03/19/19 11:00 36.8 72 20 133/67 (89) 92 Room Air 03/19/19 10:00 36.8 73 13 124/64 (84) 93 Room Air 03/19/19 09:00 36.5 74 18 130/75 (93) 95 Room Air 03/19/19 08:00 94 Room Air 03/19/19 08:00 36.7 73 21 136/73 (94) 95 Room Air 03/19/19 07:00 36.9 74 22 137/75 (95) 96 Room Air 03/19/19 06:51 75 03/19/19 06:00 37.3 75 24 129/73 (91) 95 Room Air 03/19/19 05:00 37.4 75 24 124/76 (92) 95 Room Air I & O 03/20/19 07:00 Intake Total 1255.2 ml Output Total 1275 ml Balance -19.8 ml Height & Weight Height: '" Weight: lbs. oz. kg; 25.00 BMI Method: General Appearance: Chronically ill, Cachetic, Mild Distress HEENT: PERRL/EOMI, Normal ENT Inspection, Other (no outwardly visible sign of head trauma) Neck: Full Range of Motion, Normal Inspection Respiratory: Crackles, Decreased Breath Sounds Cardiovascular: Regular Rate, Rhythm Capillary Refill: Less Than 3 Seconds Gastrointestinal: normal bowel sounds, non tender, soft Extremity: Non Tender, No Calf Tenderness, No Pedal Edema Neurologic/Psychiatric: Alert (to person), car greaser II-XII Norm as Tested; No Facial Droop, No Motor Weakness, No Sensory Deficit Skin: Normal Color, Warm/Dry Results Lab Laboratory Tests 03/18/19 15:10 03/19/19 03:10 03/19/19 12:55 03/20/19 02:40 Assessment/Plan Assessment/Plan ypothermia -pt currently at 37.6C Hypokalemia -Potassium today at 2.9 -KCl replacement Altered mental status -improving -suspected secondary to hypothermia and malnutrition -ct head negative Hypernatremia -suspected secondary to dehydration -continue LR 150cc/hr Acute Kidney Injury -improving, Creat down to 1.8 from 3.32 -Continue LR 150cc/hr Sepsis -pt received 30cc/kg bolus in ED -continue Zosyn empiric coverage -lactic down trending from 2.89 to now 1.95 -1/3 cultures positive with G+ cocci in chains -believed to be contamination Respiratory alkalosis - ABG showed Ph 7.52 with CO2 of 25 and bicarb 20 -CXR shows Leukocytosis -improving, down from 21.4(03/19) to 18.7(03/20) Malnutrition -banana bag Alcohol abuse -thiamine In: 3305 Out: 1115 net: 2190 Lines -Banana bag:n125cc/hr -Zosyn 30 cc/hr -LR 150cc/hr ELEONORA SHEPARD DO 03/20/19 0535: Subjective Time Seen by a Provider: 05:30 Subjective/Events-last exam Pt is improving Exam Exam General Appearance: Chronically ill, Cachetic, Mild Distress HEENT: PERRL/EOMI, Normal ENT Inspection Respiratory: Crackles, Decreased Breath Sounds Cardiovascular: Regular Rate, Rhythm Capillary Refill: Less Than 3 Seconds Gastrointestinal: normal bowel sounds, non tender, soft Extremity: Non Tender, No Calf Tenderness, No Pedal Edema Neurologic/Psychiatric: Alert (to person), car greaser II-XII Norm as Tested; No Facial Droop, No Motor Weakness, No Sensory Deficit Skin: Normal Color, Warm/Dry Assessment/Plan Assessment/Plan Hypothermia - resolved -pt currently at 37.6C Hypokalemia -Potassium today at 2.9 -Will replace aggressively and recheck -KCl replacement Altered mental status-- Much improved -ct head negative Hypernatremia -Change IVF to D5W Acute Kidney Injury -improving, Creat down to 1.8 from 3.32 Sepsis -pt received 30cc/kg bolus in ED -continue Zosyn empiric coverage -lactic down trending from 2.89 to now 1.95 -1/3 cultures positive with G+ cocci in chains -believed to be contamination Respiratory alkalosis - ABG showed Ph 7.52 with CO2 of 25 and bicarb 20 -CXR shows Leukocytosis -improving, down from 21.4(03/19) to 18.7(03/20) Malnutrition -banana bag Alcohol abuse -thiamine In: 3305 Out: 1115 net: 2190 Lines -Banana bag:n125cc/hr -Zosyn 30 cc/hr -LR 150cc/hr Supervisory-Addendum Brief Verification & Attestation Participated in pt care: history Personally performed: exam, history Care discussed with: Medical Student Procedures: n/a Verification and Attestation of Medical Student E/M Service A medical student performed and documented this service in my presence. I reviewed and verified all information documented by the medical student and made modifications to such information, when appropriate. I personally performed the physical exam and medical decision making. Eleonora Shepard, Mar 23, 2019,14:44 LOUIS GILMORE MEDICAL STUDENT Mar 20, 2019 04:20 ELEONORA MARTI DO Mar 20, 2019 05:35 POS
[2019-03-20] MEDS ORDERED: KCL 20 MEQ TAB (K-DUR) PO ONE (05:15)
[2019-03-20] MEDS: POTASSIUM CL 10MEQ/50ML IVPB 50 ML IV SCH ×7 (06:21→10:15)
[2019-03-20] MEDS: MAGNESIUM 1 GM/100 ML IVPB 100 ML IV SCH (06:21)
[2019-03-20] MEDS: KCL 20 MEQ TAB (K-DUR) PO SCH (06:21)
[2019-03-20] MEDS: CHLORHEXIDINE 0.12% SOLN 15 ML (PERIDEX) UDC PO SCH ×3 (06:22→22:19)
[2019-03-20] MEDS: PIPERACILLIN/TAZO 4.5 GM/NS 100 ML IV SCH ×6 (06:27→23:33)
[2019-03-20] MEDS ORDERED: D5W W/KCL 20 MEQ/L 1,000 ML IV ONE (07:52)
--- NOTE | 2019-03-20 07:53 | Diagnostic Imaging Report ---
INDICATION: Dyspnea. COMPARISON: 03/19/2019 TECHNIQUE: Single frontal radiograph of the chest dated 03/20/2019 FINDINGS: The cardiac silhouette is within normal limits in size. No significant pulmonary vascular congestion. Bibasilar patchy infiltrates are again identified, left greater than right. These have likely not significantly changed given differences in positioning. Tiny left pleural effusion is suspected. No significant right pleural effusion. Azygos lobe fissure. No pneumothorax. No acute osseous abnormality. IMPRESSION: Persistent bibasilar pulmonary opacities, not significantly changed given differences in positioning. Otherwise, similar examination. Dictated by: Dictated on workstation # [id number]
[2019-03-20] MEDS: POTASSIUM CHLORIDE IV SCH ×3 (08:36→17:47)
[2019-03-20] MEDS: D5W IV SCH ×3 (08:36→17:47)
--- NOTE | 2019-03-20 09:08 | Progress Note - Hospitalist ---
LEI POLLOCK [facility] 03/20/19 0908: Subjective HPI/CC On Admission Date Seen by Provider: Mar 20, 2019 Time Seen by Provider: 07:16 Chief complaint: Found down at home HPI: This is a 59yoWM clinic clinic Pt of [facility] who was brought in after being found down at home by his friend, probably for about three days. Pt was foundto be hypothermic and severe UTI with renal failure and pneumonia. Pt remains with altered mental status and appears to be gravely ill. His prognosis is extremely poor. Friend is at the bedside and does not know of any family that he has. Subjective/Events-last exam * Pt was able to talk today and responded to questioning well * He was still very confused and no memory of the past several days to be able to explain what had happened prior to EMS * He reports being tired still, but has no other complaints currently * He denied any pain at first, but after talking for some time he reported LUQ abdominal pain that was mildly tender to palpation * He reports having a little bit of a dry cough, but has no trouble breathing * He stated he would like to have a cigarette and a beer * He also kept asking where his phone and glasses were at after I told him they were likely still at his house multiple times * He overall appears improved from yesterday, but still has significant confusion Review of Systems General: No Chills; Fatigue HEENT: No Head Aches, No Visual Changes, No Sinus Congestion Pulmonary: No Dyspnea; Cough Cardiovascular: No: Chest Pain, Palpitations, Edema Gastrointestinal: Abdominal Pain; No: Nausea, Vomiting, Diarrhea Musculoskeletal: back pain; No: neck pain, leg pain Neurological: Confusion; No: Weakness Focused Exam Lactate Level 03/18/19 17:53: Lactic Acid Level 2.63*H 03/18/19 19:53: Lactic Acid Level 2.16*H 03/18/19 21:55: Lactic Acid Level 1.95 Objective Exam Vital Signs Vital Signs Date Time Temp Pulse Resp B/P (MAP) Pulse Ox O2 Delivery O2 Flow Rate FiO2 03/20/19 08:00 96 Room Air 03/20/19 08:00 68 8 111/64 (80) 03/20/19 03:58 36.5 Capillary Refill : Less Than 3 Seconds General Appearance: Moderate Distress, Thin Respiratory: Chest Non Tender, Lungs Clear, No Accessory Muscle Use, No Respiratory Distress, Decreased Breath Sounds (Distant breath sound bilaterally ) Cardiovascular: Regular Rate, Rhythm, No JVD, No Murmur, Normal Peripheral Pulses Gastrointestinal: Normal Bowel Sounds, No Organomegaly, Tenderness (LUQ) Extremity: Normal Capillary Refill, No Calf Tenderness, No Pedal Edema Neurologic/Psychiatric: Alert, Oriented x3, No Motor/Sensory Deficits Skin: Normal Color, Cool Results/Procedures Lab Laboratory Tests 03/19/19 12:55 03/20/19 02:40 Patient resulted labs reviewed. Assessment/Plan Assessment and Plan Assess & Plan/Chief Complaint Assessment: Altered Mental Status Hx of Alcohol abuse Hypothermia UTI Lower Lobe PNA Sepsis Nicotine cravings Plan: Continue antibiotics for UTI and PNA Monitor temperature to maintain normal range IV fluids Monitor mental status Alcohol withdrawal prophylaxis DVT prophylaxis Nicotine patch TISH HESS DO 03/20/19 1708: Subjective Subjective/Events-last exam PT and OT will be ordered. Transferring to fourth floor. Pt has survived and creatinine is 1.8. Flank mass so general surgery will be consulted. Looks more and more like alcohol induced withdrawal and found down for three days in a hypothermic and acute renal failure state with acute UTI and pneumonia. Review of Systems Neurological: Confusion Objective Exam General Appearance: Chronically ill, Cachetic, Mild Distress Respiratory: Lungs Clear, Decreased Breath Sounds (Distant breath sound bilaterally ) Cardiovascular: Regular Rate, Rhythm Assessment/Plan Assessment and Plan Assess & Plan/Chief Complaint Prognosis guarded Diagnosis/Problems Diagnosis/Problems (1) Severe sepsis Status: Acute (2) Urinary tract infection Status: Acute Qualifiers: Qualified Codes: N30.00 - Acute cystitis without hematuria (3) Acute renal failure Status: Acute Qualifiers: Qualified Codes: N17.9 - Acute kidney failure, unspecified (4) Hypothermia Status: Acute Qualifiers: Qualified Codes: T68.XXXA - Hypothermia, initial encounter (5) Left lower lobe pneumonia Status: Acute Qualifiers: Qualified Codes: J18.1 - Lobar pneumonia, unspecified organism Supervisory-Addendum Brief Verification & Attestation Participated in pt care: history, MDM, physical Personally performed: exam, history, MDM, supervision of care Care discussed with: Medical Student Procedures: n/a Results interpretation: Verified all documentation Verification and Attestation of Medical Student E/M Service A medical student performed and documented this service in my presence. I reviewed and verified all information documented by the medical student and made modifications to such information, when appropriate. I personally performed the physical exam and medical decision making. Tish Hess, Mar 20, 2019,17:07 LEI POLLOCK Mar 20, 2019 09:08 TISH MENDES DO Mar 20, 2019 17:08 POS
[2019-03-20] MEDS: THIAMINE INJECTION 100 MG, FOLIC ACID INJECTION 1 MG, VITAMIN MULTI INJECTION 10 ML, MA... IV SCH ×5 (09:49)
--- NOTE | 2019-03-20 10:43 | NUR ---
Met with pt's two friends, Naresh Yonatan and Kareem Vacastewroseanne with ICU nurse last evening. On this date pt alert and able to discuss his situation. Pt's over a year ago and he was terminated from [employer] in [place] due to severe visual impairment. Pt is described as a every day drinker and smoker. He lives in a home that is described as full of trash. It is uncertain if he has heat, Electricity and plumbing. Pt's states his home is "pretty bad".Pt states that since he was out of money other then what friends gave him he hasn't drank for over 2 weeks nor smoked.Will make report to [facility] for their assistance with this patient. Also have requested Financial services to take application for Social Security, SSI and Medicaid. Pt will most likely require a short-term placement.Will follow and assist.
--- NOTE | 2019-03-20 11:06 | Occupational Therapy Eval ---
OT Evaluation-General/PLF Medical Diagnosis Admission Date Mar 18, 2019 at 17:20 Medical Diagnosis: UTI, renal failure, pneumonia Onset Date: Mar 18, 2019 Therapy Diagnosis Therapy Diagnosis: Decreased ADL function Precautions Precautions/Isolations: Fall Prevention, Standard Precautions Safety Interventions: Reorient-PRN Referral Physician: Tish Kilpatrick DO Referral Reason: Activity Tolerance, Self Care, Evaluation/Treatment, Strengthening/ROM Medical History Additional Medical History No pertinent PMHx documented. Current History Per H&P: "HPI: This is a 59yoWM clinic clinic Pt of [facility] who was brought in after being found down at home by his friend, probably for about three days. Pt was foundto be hypothermic and severe UTI with renal failure and pneumonia. Pt remains with altered mental status and appears to be gravely ill. His prognosis is extremely poor. Friend is at the bedside and does not know of any family that he has." Reviewed History: Yes Social History Home: Single Level Current Living Status: Alone Entry Into Home: Stairs With Railing Steps Into Home: 3 Steps Inside Home: 0 ADL-Prior Level of Function SCALE: Activities may be completed with or without assistive devices. 4-Cpajfhdzsm-daugxjp completes the activity by him/herself with no assistance from a helper. 5-Set-up or Clean-up Assistance-helper sets up or cleans up; patient completes activity. [place] assists only prior to or following the activity. 4-Supervision or Touching Assistance-helper provides verbal cues and/or touching/steadying and/or contact guard assistance as patient completes activity. Assistance may be provided throughout the activity or intermittently. 3-Partial/Moderate Assistance-helper does LESS THAN HALF the effort. [place] lifts, holds or supports trunk or limbs, but provides less than half the effort. 2-Substantial/Maximal Assistance-helper does MORE THAN HALF the effort. [place] lifts or holds trunk or limbs and provides more than half the effort. 0-Dwrumysmz-fhoauk does ALL the effort. Patient does none of the effort to complete the activity. Or, the assistance of 2 or more helpers is required for the patient to complete the activity. If activity was not attempted, code reason: 7-Patient Refused. 9-Not Applicable-not attempted and the patient did not perform the activity before the current illness, exacerbation or injury. 10-Not Attempted due to Environmental Limitations-(lack of equipment, weather restraints, etc.). 88-Not Attempted due to Medical Conditions or Safety Concerns. ADL PLOF Comments Pt IND without AE Self Care: Independent Functional Cognition: Independent DME/Equipment: Tub/Shower DME/Equipment Comments No DME at home. Occupation: does not answer- states "somewhat retired." Drive Self: Yes Leisure Interests: working in garage OT Current Status Subjective Pt seen in bed, eyes open and nursing present. Pt's head and body leans to L side, eyes droopy and diminished eye contact. Pt states no pain. Pt agreeable to OT evaluation. Mental Status/Objective Patient Orientation: Person Oriented to person only. Place- [place] Date- 1999 Attachments: Suprapubic Catheter, Telemetry Current Glasses/Contacts: Yes Hearing Aids: No Dentures/Partials: No Hand Dominance: Right Upper Extremity ROM WFL to ~90* shoulder flexion/ abduction Upper Extremity Coordination Decreased/ slow Upper Extremity Sensation No c/o paresthesias Upper Extremity Strength Impaired bilaterally Edema: BLE (ankles) nonpitting edema ADL-Treatment Lower Body Dressing (QC): 2 On/Off Footwear (QC): 2 Other Treatments Pt talkative through session. Pt states lives alone, wearing wedding ring. Pt openly discusses that he has had difficulty greiving of ~7 years ago. Pt denies children or immediate family locally. Pt states he has "[employer] Family" that he is close with. Pt completes bed mob with increased time and min A for stability. Pt sits EOB to complete footwear don/ doffing- pt has decreased static/ dynamic sitting balance, leans to L side and requires CGA intermittently. Large growth on mid-section of back noted, nursing noted. Pt does not raise head to look at hands lifted above pt's head, reaches midline. PT present end of session, pt left with PT on EOB with hands on pt, friend present end of session. Education OT Patient Education: Correct positioning, Disease process, Modified ADL techniques, Purpose of tx/functional activities, Safety issues Teaching Recipient: Patient Teaching Methods: Demonstration, Discussion Response to Teaching: Verbalize Understanding, Return Demonstration, Reinforcement Needed OT Short Term Goals Short Term Goals Time Frame: Mar 27, 2019 1=Demonstrate adherence to instructed precautions during ADL tasks. 2=Patient will verbalize/demonstrate understanding of assistive devices/modifications for ADL. 3=Patient will improve strength/tolerance for activity to enable patient to perform ADL's. OT Center Consultant Goals Center Consultant Goals Time Frame: Mar 27, 2019 Eating (QC): 6 Oral Hygiene (QC): 6 Shower/Bathe Self (QC): 4 Upper Body Dressing (QC): 5 Lower Body Dressing (QC): 4 On/Off Footwear (QC): 4 Toileting Hygiene (QC): 4 Toilet/Commode Transfer (QC): 4 Additional Goals: 1-Demonstrate ADL Tasks, 2-Verbalize Understanding, 3- ImproveStrength/Malia 1=Demonstrate adherence to instructed precautions during ADL tasks. 2=Patient will verbalize/demonstrate understanding of assistive devices/modifications for ADL. 3=Patient will improve strength/tolerance for activity to enable patient to perform ADL's. OT Education/Plan Problem List/Assessment Assessment: Decreased Activ Tolerance, Decreased Safety Aware, Decreased UE Strength, Edema, Impaired Bed Mobility, Impaired Cognition, Impaired Coordination, Impaired Funct Balance, Impaired I ADL's, Impaired Self-Care Skills Discharge Recommendations Plan/Recommendations: Continue POC Therapy Discharge Recommendati: Post Acute OT Patient/Family Goals Gain strength and go home. Treatment Plan/Plan of Care Treatment,Training & Education: Yes Patient would benefit from OT for education, treatment and training to promote independence in ADL's, mobility, safety and/or upper extremity function for ADL's. Plan of Care: ADL Retraining, Functional Mobility, UE Funct Exercise/Act Treatment Duration: Mar 27, 2019 Frequency: 5 times per week Estimated Hrs Per Day: .25 hour per day Agreement: Yes Rehab Potential: Fair Time/GCodes Start Time: 10:38 Stop Time: 10:50 Total Time Billed (hr/min): 12 Billed Treatment Time 1SHELLEY (12) MALDONADO HILL OTR Mar 20, 2019 11:06 POS
--- NOTE | 2019-03-20 11:57 | Physical Therapy Evaluation ---
PT Evaluation-General Medical Diagnosis Admission Date Mar 18, 2019 at 17:20 Medical Diagnosis: UTI, renal failure, pneumonia Onset Date: Mar 18, 2019 Therapy Diagnosis Therapy Diagnosis: generalized weakness, debility Precautions Precautions/Isolations: Fall Prevention, Standard Precautions Referral Physician: Tish Kilpatrick DO Reason for Referral: Evaluation/Treatment Medical History Pertinent Medical History: Alcoholism, Smoking Current History EMS from home secondary to altered mental status and hypothermia Reviewed History: Yes Social History Home: Single Level Current Living Status: Alone Entry Into Home: Ramp PT Steps Inside Home: 0 Prior Prior Level of Function SCALE: Activities may be completed with or without assistive devices. 3-Mdbanmvghx-uopmdta completes the activity by him/herself with no assistance from a helper. 5-Set-up or Clean-up Assistance-helper sets up or cleans up; patient completes activity. [place] assists only prior to or following the activity. 4-Supervision or Touching Assistance-helper provides verbal cues and/or touching/steadying and/or contact guard assistance as patient completes activity. Assistance may be provided throughout the activity or intermittently. 3-Partial/Moderate Assistance-helper does LESS THAN HALF the effort. [place] lifts, holds or supports trunk or limbs, but provides less than half the effort. 2-Substantial/Maximal Assistance-helper does MORE THAN HALF the effort. [place] lifts or holds trunk or limbs and provides more than half the effort. 5-Ysdodxuoc-pzemgd does ALL the effort. Patient does none of the effort to complete the activity. Or, the assistance of 2 or more helpers is required for the patient to complete the activity. If activity was not attempted, code reason: 7-Patient Refused. 9-Not Applicable-not attempted and the patient did not perform the activity before the current illness, exacerbation or injury. 10-Not Attempted due to Environmental Limitations-(lack of equipment, weather restraints, etc.). 88-Not Attempted due to Medical Conditions or Safety Concerns. Bed Mobility: 6 Transfers (B,C,W/C): 6 Gait: 6 Stairs: 6 Indoor Mobility (Ambulation): Independent Stairs: Unknown PT Evaluation-Current Subjective Patient treatment initiated at conclusion of OT tx. Patient reports he quit drinking 3 weeks ago "cold turkey" and not by choice. Reports having weakness over the last 3 weeks. Patient reports using wheelchair more often over the last 3 weeks for household mobility and friend reports that before that patient was completely independent and walking. Pain Numeric Pain Scale: 0-No Pain Location: No Pain Reported Objective Patient Orientation: Confused, Mumbles Problem Solving: Fair Attachments: Holman Catheter ROM/Strength ROM Lower Extremities WFL Strength Lower Extremities Grossly 3/5 Integumentary/Posture Integumentary See nursing notes Bowel Incontinence: No Bladder Incontinence: Yes Posture WFL Neuromuscular (Tone, Coordination, Reflexes) Grossly intact Sensory Vision: Functional Hearing: Functional Hand Dominance: Right Transfers Sit to Stand (QC): 3 Chair/Adw-so-Akbxs Xfer(QC): 3 Patient weak and unstable on feet. LOB with small steps. Gait Does the Patient Walk?: Yes Mode of Locomotion: Both Anticipated Mode of Locomotion: Both Distance: 1=up to 49 ft Walk 10 feet (QC): 3 Walk 50 ft with 2 Turns(QC): 88 Walk 150 ft (QC): 88 Gait Assistive Device: FWW Comments/Gait Description unsteady, ataxic movements bilateral LE Balance Sitting Static: Fair Sitting Dynamic: Poor Standing Static: Fair Standing Dynamic: Poor Picking up an Object (QC): 88 Assessment/Needs While seated at EOB, patient demonstrated difficulty maintaining seated balance, often leaning backwards. Patient required moderate assistance to stand with FWW and maintain balance while standing. Patient ambulated about 8 steps forward that were uncoordinated and had difficulty maintaining balance. Patient seated in chair with cues to reach back for chair. Patient performed a second sit to stand from chair and was able to balance slightly better during second repetitio n. Rehab Potential: Guarded PT Wheel Adjuster Goals Wheel Adjuster Goals PT Wheel Adjuster Goals Time Frame: Mar 27, 2019 Sit to Lying (QC): 6 Lying-Sitting on Side/Bed(QC): 6 Sit to Stand (QC): 6 Roll Left to Right (QC): 6 Chair/Hzm-ao-Kmbww Xfer(QC): 6 Car Transfer (QC): 6 Does the Patient Walk: Yes Distance: 200' Walk 10 feet (QC): 6 Walk 10ft-Uneven Surface(QC): 6 Walk 50ft with 2 Turns (QC): 6 Walk 150 ft (QC): 6 # of Steps: 3 1 Step (curb) (QC): 6 4 Steps (QC): 6 PT Plan Problem List Problem List: Activity Tolerance, Functional Strength, Safety, Balance, Gait, Transfer, Bed Mobility, ROM Treatment/Plan Treatment Plan: Continue Plan of Care Treatment Plan: Bed Mobility, Education, Functional Activity Malia, Functional Strength, Gait, Safety, Therapeutic Exercise, Transfers Treatment Duration: Mar 27, 2019 Frequency: 6 times per week Estimated Hrs Per Day: .25 hour per day Patient and/or Family Agrees t: Yes Time/GCodes Time In: 1050 Time Out: 1105 Total Billed Treatment Time: 15 Total Billed Treatment 1 visit EVMod 15min GUADALUPE PRADO PT Mar 20, 2019 11:57 POS
--- NOTE | 2019-03-20 15:47 | NUR ---
Report called to ANA Stuart who will assume pt care on arrival to new room 414. VSS prior to transfer. Pt currently does not have any personal belongings aside from beef jerky and get well card brought in by friends. Pt taken by wheelchair to new room at this time.
--- NOTE | 2019-03-20 16:38 | NUR ---
[facility] Report made Intake number [id number] will follow
--- NOTE | 2019-03-20 17:12 | Consultation - Surgery ---
[facility] 03/20/19 1712: History of Present Illness History of Present Illness Patient Consulted On(salud/time) 03/20/19 17:03 Date Seen by Provider: Mar 20, 2019 Time Seen by Provider: 17:30 Reason for Visit: Back Mass History of Present Illness Chart Reviewed: Michael is a 59 year old male that was admitted to the [facility] [place] for altered mental status. Pt was found to be altered and had temperature of 30C on arrival to ED. Per report the patient was found by a friend who stated the patient was an alcoholic and lived in a home without heat. Currently, the patient is alert but not oriented. General Surgery was consulted due to the patient having a pedunculated back mass. The patient was offered the opportunity to have the back mass removed but was unsure at this moment because "it may hurt". We discussed with the patient that we will only remove the back mass if he wants it removed. At this time the patient seemed indifferent. It was explained to the patient that we would be dhara k tomorrow to talk to him and see how he felt then and that he did not have to make a decision tonight. Additional information was not able to be obtained due to him being a poor historian. . Allergies and Home Medications Allergies Coded Allergies: No Known Drug Allergies (Unverified , 03/18/19) Home Medications Albuterol Sulfate 1 Puff Puff, 2 PUFF IH Q4H PRN for SHORTNESS OF BREATH, (Reported) 1 PUFF = 90 MCG Past Izoleck-Llbmzz-Tvjygm Hx Patient Social History Alcohol Use: Regular Use Recreational Drug Use: No (UNABLE TO ANSWER ) Smoking Status: Current Everyday Smoker Type Used: Cigarettes Recent Foreign Travel: No Contact w/Someone Who Travel: No Recent Infectious Disease Expo: No Physical Exam-General Problems Physical Exam Vital Signs Vital Signs - First Documented 03/18/19 15:08 Temp 30.8 Pulse 58 Resp 18 B/P (MAP) 116/100 (105) Pulse Ox 99 O2 Delivery Room Air Capillary Refill : Less Than 3 Seconds General Appearance: other (Alert, no distress and had an unkept appearance ) Neurologic/Psychiatric: alert Skin: other (Patient has a peduculated back mass) Data Review Labs Laboratory Tests 03/20/19 02:40: White Blood Count 18.7H, Red Blood Count 4.60, Hemoglobin 14.4, Hematocrit 44, Mean Corpuscular Volume 96, Mean Corpuscular Hemoglobin 31, Mean Corpuscular Hemoglobin Concent 33, Red Cell Distribution Width 15.3H, Platelet Count 66L, Mean Platelet Volume , Neutrophils (%) (Auto) 84H, Lymphocytes (%) (Auto) 10L, Monocytes (%) (Auto) 6, Eosinophils (%) (Auto) 0, Basophils (%) (Auto) 0, Neutrophils # (Auto) 15.7H, Lymphocytes # (Auto) 1.8, Monocytes # (Auto) 1.2H, Eosinophils # (Auto) 0.0, Basophils # (Auto) 0.0, Sodium Level 151H, Potassium Level 2.9L, Chloride Level 117H, Carbon Dioxide Level 20L, Anion Gap 14, Blood Urea Nitrogen 50H, Creatinine 1.80H, Estimat Glomerular Filtration Rate 39, BUN/Creatinine Ratio 28, Glucose Level 92, Calcium Level 7.6L, Phosphorus Level 3.3, Magnesium Level 3.2H 03/20/19 05:42: Ammonia 15, Myoglobin 277.0H Microbiology 03/18/19 Blood Culture - Preliminary, Resulted Positive; See Report 03/19/19 MRSA Screen - Final, Complete MRSA not isolated 03/18/19 Urine Culture - Final, Complete NO GROWTH Assessment/Plan Assessment/Plan Assessment/Plan Pedunculated back mass Severe Sepsis Hypothermia ARF Left Lower Lobe Pneumonia UTI Surgery will continue to be in contact with patient in regards to the removal of the pedunculated back mass. Appreciated medicine team consult. ABDOUL JAVIER DO 03/20/19 1806: History of Present Illness History of Present Illness History of Present Illness Consult requested by Dr. Kilpatrick for back mass. Patient with back mass for unsure how long he has had it. Not sure if he is wanting to have it removed. Patient admitted for altered mental statuus and was hypothermic. Patient is a poor historian and not providing much information. Allergies and Home Medications Allergies Coded Allergies: No Known Drug Allergies (Unverified , 03/18/19) Home Medications Albuterol Sulfate 1 Puff Puff, 2 PUFF IH Q4H PRN for SHORTNESS OF BREATH, (Re ported) 1 PUFF = 90 MCG Patient Home Medication List Home Medication List Reviewed: Yes Past Fzlykur-Klksou-Zoqtrd Hx Patient Social History Alcohol Use: Regular Use (reported) Type Used: Cigarettes Family Medical History Significant Family History: No Pertinent Family Hx Review of Systems-General ROS-Unable to Obtain: Patient not wanting to dicuss Physical Exam-General Problems Physical Exam General Appearance: no apparent distress HEENT: PERRL/EOMI Respiratory: chest non-tender, no respiratory distress Cardiovascular: regular rate, rhythm Gastrointestinal: non tender, soft Back: other (penduculated back mass) Extremities: normal range of motion, non-tender Neurologic/Psychiatric: alert; No oriented x 3; other (flat affect) Skin: other (Patient has a peduculated back mass) Lymphatic: no adenopathy Assessment/Plan Assessment/Plan Assessment/Plan Pedunculated back mass Severe Sepsis Hypothermia ARF Left Lower Lobe Pneumonia UTI Patient discussed that we could remove this likely at the bedside. He does not want to discuss it any further at this time. We will let him think if he wants to have it removed and if he does, will plan so accordingly. Will follow. Supervisory-Addendum Brief Verification & Attestation Participated in pt care: history, MDM, physical Personally performed: exam, history, MDM, supervision of care Care discussed with: Medical Student Procedures: n/a Results interpretation: Verified all documentation Verification and Attestation of Medical Student E/M Service A medical student performed and documented this service in my presence. I reviewed and verified all information documented by the medical student and made modifications to such information, when appropriate. I personally performed the physical exam and medical decision making. Abdoul Javier, Mar 20, 2019,18:05 [facility] Mar 20, 2019 17:12 ABDOUL ADAM DO Mar 20, 2019 18:06 POS
[2019-03-20 19:46] LABS: CALCIUM 7.7 MG/DL (8.5-10.1); CREATININE SERUM 1.43 MG/DL (0.60-1.30)
[2019-03-21 04:05] VITALS: BP 96/59
[2019-03-21] MEDS: D5W IV SCH ×4 (04:34→17:07)
[2019-03-21] MEDS: POTASSIUM CHLORIDE IV SCH ×4 (04:34→17:07)
[2019-03-21 06:02] LABS: BASOPHILS % (AUTO) 0 % (0-10); EOSINOPHILS % (AUTO) 0 % (0-10); HEMATOCRIT 43 % (40-54); HEMOGLOBIN 13.7 G/DL (13.3-17.7); LYMPHOCYTES % (AUTO) 10 % (12-44); MEAN CORPUSCULAR HEMOGLOBIN 31 PG (25-34); MEAN CORPUSCULAR HGB CONC 32 G/DL (32-36); MEAN CORPUSCULAR VOLUME 97 FL (80-99); MONOCYTES % (AUTO) 5 % (0-12); NEUTROPHILS # (AUTO) 15.8 X 10^3 (1.8-7.8); NEUTROPHILS % (AUTO) 84 % (42-75); PLATELET COUNT 74 10^3/uL (130-400); RED CELL DISTRIBUTION WIDTH 15.6 % (10.0-14.5); WHITE BLOOD COUNT 18.8 10^3/uL (4.3-11.0)
[2019-03-21] MEDS: CHLORHEXIDINE 0.12% SOLN 15 ML (PERIDEX) UDC PO SCH ×3 (06:22→21:57)
[2019-03-21] MEDS: PIPERACILLIN/TAZO 4.5 GM/NS 100 ML IV SCH ×6 (06:22→22:03)
[2019-03-21 06:23] LABS: CALCIUM 7.6 MG/DL (8.5-10.1); CREATININE SERUM 1.23 MG/DL (0.60-1.30); MAGNESIUM 2.9 MG/DL (1.6-2.4); PHOSPHORUS 1.6 MG/DL (2.3-4.7); POTASSIUM 3.6 MMOL/L (3.6-5.0)
--- NOTE | 2019-03-21 06:28 | Pulmonary Progress Note ---
Subjective Time Seen by a Provider: 06:28 Subjective/Events-last exam Appears to be improved. Sepsis Event Evaluation Height, Weight, BMI Height: '" Weight: lbs. oz. kg; 25.00 BMI Method: Focused Exam Lactate Level 03/18/19 17:53: Lactic Acid Level 2.63*H 03/18/19 19:53: Lactic Acid Level 2.16*H 03/18/19 21:55: Lactic Acid Level 1.95 Exam Exam Vital Signs Date Time Temp Pulse Resp B/P (MAP) Pulse Ox O2 Delivery O2 Flow Rate FiO2 03/21/19 04:05 36.3 66 18 96/59 (71) 96 Room Air 03/20/19 23:55 36.5 68 18 103/55 (71) 96 Room Air 03/20/19 20:00 Room Air 03/20/19 19:24 36.6 67 16 110/75 (87) 98 Room Air 03/20/19 16:03 35.6 03/20/19 16:00 Room Air 03/20/19 15:57 66 18 115/71 (86) 96 Room Air 03/20/19 12:51 71 03/20/19 12:00 36.6 03/20/19 12:00 96 Room Air 03/20/19 08:00 96 Room Air 03/20/19 08:00 68 8 111/64 (80) 95 Room Air 03/20/19 07:00 69 17 113/70 (84) 95 Room Air 03/20/19 06:48 67 I & O 03/21/19 07:00 Intake Total 1100 ml Output Total 1380 ml Balance -280 ml Height & Weight Height: '" Weight: lbs. oz. kg; 25.00 BMI Method: General Appearance: No Apparent Distress, Chronically ill, Cachetic HEENT: PERRL/EOMI, Normal ENT Inspection Neck: Full Range of Motion, Normal Inspection Respiratory: Lungs Clear, Decreased Breath Sounds (Distant breath sound bila terally ) Cardiovascular: Regular Rate, Rhythm Capillary Refill: Less Than 3 Seconds Gastrointestinal: non tender, soft Extremity: Normal Capillary Refill, No Calf Tenderness, No Pedal Edema Neurologic/Psychiatric: Alert, Oriented x3, No Motor/Sensory Deficits Skin: Normal Color, Cool Results Lab Laboratory Tests 03/19/19 12:55 03/20/19 02:40 03/20/19 19:25 03/21/19 05:37 Assessment/Plan Assessment/Plan Hypothermia - resolved Hypokalemia, Hypophos -Will give K PHos Altered mental status-- Much improved -ct head negative Hypernatremia -improve d Acute Kidney Injury -improving, Sepsis- improving - Zosyn Malnutrition -banana bag Alcohol abuse -thiamine ELEONORA HENSLEY DO Mar 21, 2019 06:28 POS
[2019-03-21] MEDS ORDERED: POTASSIUM PHOSPHATE INJ 30 MM in NS (IVPB) 250 ML IV ONE (06:30)
[2019-03-21] MEDS: MAGNESIUM 1 GM/100 ML IVPB 100 ML IV SCH (06:44)
[2019-03-21] MEDS: KCL 20 MEQ TAB (K-DUR) PO SCH (06:55)
[2019-03-21] MEDS: POTASSIUM CL 10MEQ/50ML IVPB 50 ML IV SCH (06:56)
--- NOTE | 2019-03-21 06:57 | Diagnostic Imaging Report ---
INDICATION: Dyspnea. Comparison made with prior examination of 03/20/2019. FINDINGS: Heart size is normal. There is bibasilar atelectasis and/or pneumonitis. There is a left pleural effusion. No pneumothorax. Mediastinum is unremarkable. IMPRESSION: Bibasilar atelectasis and/or pneumonitis, left greater than right, with small pleural effusion. Dictated by: Dictated on workstation # [id number]
[2019-03-21 08:00] VITALS: BP 103/58
[2019-03-21] MEDS: THIAMINE INJECTION 100 MG, FOLIC ACID INJECTION 1 MG, VITAMIN MULTI INJECTION 10 ML, MA... IV SCH ×5 (08:51)
--- NOTE | 2019-03-21 10:01 | Progress Note - Surgery ---
Subjective Date Seen by a Provider: Mar 21, 2019 Time Seen by a Provider: 09:56 Subjective/Events-last exam Patient alert and eating breakfast. He has no new complaints. More informative of details. At this time he is not wanting anything done with the back mass. Focused Exam Lactate Level 03/18/19 17:53: Lactic Acid Level 2.63*H 03/18/19 19:53: Lactic Acid Level 2.16*H 03/18/19 21:55: Lactic Acid Level 1.95 Objective Exam Vital Signs Date Time Temp Pulse Resp B/P (MAP) Pulse Ox O2 Delivery O2 Flow Rate FiO2 03/21/19 04:05 36.3 66 18 96/59 (71) 96 Room Air 03/20/19 23:55 36.5 68 18 103/55 (71) 96 Room Air 03/20/19 20:00 Room Air 03/20/19 19:24 36.6 67 16 110/75 (87) 98 Room Air 03/20/19 16:03 35.6 03/20/19 16:00 Room Air 03/20/19 15:57 66 18 115/71 (86) 96 Room Air 03/20/19 12:51 71 03/20/19 12:00 36.6 03/20/19 12:00 96 Room Air I & O 03/21/19 07:00 Intake Total 1100 ml Output Total 1380 ml Balance -280 ml Capillary Refill : Less Than 3 Seconds General Appearance: No Apparent Distress, Chronically ill, Cachetic HEENT: PERRL/EOMI, Normal ENT Inspection Neck: Full Range of Motion, Normal Inspection Respiratory: Chest Non Tender, No Accessory Muscle Use, No Respiratory Distress Cardiovascular: Regular Rate, Rhythm Gastrointestinal: non tender, soft Extremity: Normal Capillary Refill, No Calf Tenderness, No Pedal Edema Neurologic/Psychiatric: Alert, Oriented x3, No Motor/Sensory Deficits Skin: Normal Color, Other (mass that is pedunculated about center of back) Results Lab Laboratory Tests 03/20/19 19:25: Sodium Level 146H, Potassium Level 4.0, Chloride Level 112H, Carbon Dioxide Level 22, Anion Gap 12, Blood Urea Nitrogen 32H, Creatinine 1.43H, Estimat Glomerular Filtration Rate 50, BUN/Creatinine Ratio 22, Glucose Level 158H, Calcium Level 7.7L 03/21/19 05:37: Sodium Level 144, Potassium Level 3.6, Chloride Level 112H, Carbon Dioxide Level 22, Anion Gap 10, Blood Urea Nitrogen 24H, Creatinine 1.23, Estimat Glomerular Filtration Rate 60, BUN/Creatinine Ratio 20, Glucose Level 131H, Calcium Level 7.6L, White Blood Count 18.8H, Red Blood Count 4.38, Hemoglobin 13.7, Hematocrit 43, Mean Corpuscular Volume 97, Mean Corpuscular Hemoglobin 31, Mean Corpuscular Hemoglobin Concent 32, Red Cell Distribution Width 15.6H, Platelet Count 74L, Mean Platelet Volume , Neutrophils (%) (Auto) 84H, Lymphocytes (%) (Auto) 10L, Monocytes (%) (Auto) 5, Eosinophils (%) (Auto) 0, Basophils (%) (Auto) 0, Neutrophils # (Auto) 15.8H, Lymphocytes # (Auto) 2.0, Monocytes # (Auto) 1.0, Eosinophils # (Auto) 0.0, Basophils # (Auto) 0.0, Phosphorus Level 1.6L, Magnesium Level 2.9H Microbiology 03/18/19 Blood Culture - Preliminary, Resulted No growth 03/19/19 MRSA Screen - Final, Complete MRSA not isolated 03/18/19 Urine Culture - Final, Complete NO GROWTH Assessment/Plan Assessment/Plan Assessment/Plan Pedunculated back mass Severe Sepsis Hypothermia ARF Left Lower Lobe Pneumonia UTI Patient discussed that we could remove back mass likely at the bedside. At this time we discussed risks and benefits with him. He still currently does not wish to proceed with removal of the mass. We informed him if he changes his mind we can have it arranged. Will sign off, call if needed. ABDOUL JAVIER DO Mar 21, 2019 10:01 POS
--- NOTE | 2019-03-21 11:39 | Physical Therapy Daily Note ---
PT Daily Note-Current Subjective Patient states that he will try to stand. Transfers SCALE: Activities may be completed with or without assistive devices. 1-Zzmpnpfrxc-ixzsdeu completes the activity by him/herself with no assistance from a helper. 5-Set-up or Clean-up Assistance-helper sets up or cleans up; patient completes activity. [place] assists only prior to or following the activity. 4-Supervision or Touching Assistance-helper provides verbal cues and/or touching/steadying and/or contact guard assistance as patient completes activity. Assistance may be provided throughout the activity or intermittently. 3-Partial/Moderate Assistance-helper does LESS THAN HALF the effort. [place] lifts, holds or supports trunk or limbs, but provides less than half the effort. 2-Substantial/Maximal Assistance-helper does MORE THAN HALF the effort. [place] lifts or holds trunk or limbs and provides more than half the effort. 1-Wzywhmcjl-zoyguk does ALL the effort. Patient does none of the effort to complete the activity. Or, the assistance of 2 or more helpers is required for the patient to complete the activity. If activity was not attempted, code reason: 7-Patient Refused. 9-Not Applicable-not attempted and the patient did not perform the activity before the current illness, exacerbation or injury. 10-Not Attempted due to Environmental Limitations-(lack of equipment, weather restraints, etc.). 88-Not Attempted due to Medical Conditions or Safety Concerns. Transfers (B, C, W/C): 4 Sit to Stand (QC): 4 Treatments sit to stand transfer training and balance activities Assessment Current Status: Good Progress patient had difficulty with sit to stand transfers. PT Senior Living Goals Data Integration Developer Goals PT Data Integration Developer Goals Time Frame: Mar 27, 2019 Sit to Lying (QC): 6 Lying-Sitting on Side/Bed(QC): 6 Sit to Stand (QC): 6 Roll Left to Right (QC): 6 Chair/Pdh-rg-Sxjpa Xfer(QC): 6 Car Transfer (QC): 6 Does the Patient Walk: Yes Distance: 200' Walk 10 feet (QC): 6 Walk 10ft-Uneven Surface(QC): 6 Walk 50ft with 2 Turns (QC): 6 Walk 150 ft (QC): 6 # of Steps: 3 1 Step (curb) (QC): 6 4 Steps (QC): 6 PT Plan Treatment/Plan Treatment Plan: Continue Plan of Care Treatment Plan: Bed Mobility, Education, Functional Activity Malia, Functional Strength, Gait, Safety, Therapeutic Exercise, Transfers Treatment Duration: Mar 27, 2019 Frequency: 6 times per week Estimated Hrs Per Day: .25 hour per day Patient and/or Family Agrees t: Yes Time/GCodes Time In: 1120 Time Out: 1135 Total Billed Treatment Time: 15 Total Billed Treatment 1, FA x 15 LALY ROBBINS PT Mar 21, 2019 11:39 POS
[2019-03-21 11:59] VITALS: BP 110/70
--- NOTE | 2019-03-21 12:07 | Progress Note - Hospitalist ---
Subjective HPI/CC On Admission Date Seen by Provider: Mar 21, 2019 Time Seen by Provider: 11:00 Chief complaint: Found down at home HPI: This is a 59yoWM clinic clinic Pt of [place] who was brought in after being found down at home by his friend, probably for about three days. Pt was foundto be hypothermic and severe UTI with renal failure and pneumonia. Pt remains with altered mental status and appears to be gravely ill. His prognosis is extremely poor. Friend is at the bedside and does not know of any family that he has. Subjective/Events-last exam When asked if I could do anything for the patient he says that I shouldn't piss him off. Otherwise he is without complaint. He thinks he is in [place] but when corrected disbelieve's me. Otherwise he sitting in a chair with his eyes closed without any evidence of discomfort Review of Systems Neurological: Weakness Focused Exam Lactate Level 03/18/19 17:53: Lactic Acid Level 2.63*H 03/18/19 19:53: Lactic Acid Level 2.16*H 03/18/19 21:55: Lactic Acid Level 1.95 Objective Exam Vital Signs Vital Signs Date Time Temp Pulse Resp B/P (MAP) Pulse Ox O2 Delivery O2 Flow Rate FiO2 03/21/19 11:59 36.7 71 16 110/70 (83) 99 Room Air Capillary Refill : Less Than 3 SecondsLess Than 3 Seconds General Appearance: Chronically ill Respiratory: Lungs Clear, Normal Breath Sounds, No Accessory Muscle Use, No Respiratory Distress Cardiovascular: Regular Rate, Rhythm, No Gallop, No JVD, No Murmur, Normal Peripheral Pulses Gastrointestinal: Normal Bowel Sounds, Non Tender, Soft Rectal: Deferred Extremity: Normal Capillary Refill Neurologic/Psychiatric: Depressed Affect, Disoriented Skin: Pallor Results/Procedures Lab Laboratory Tests 03/20/19 19:25 03/21/19 05:37 Patient resulted labs reviewed. Assessment/Plan Assessment and Plan Assess & Plan/Chief Complaint Altered Mental Status-most likely secondary to chronic alcohol abuse Hx of Alcohol abuse UTI Lower Lobe PNA-on Zosyn Sepsis-resolved Nicotine cravings DERRICK KELLY MD Mar 21, 2019 12:07 POS
[2019-03-21 15:55] VITALS: BP 118/79
[2019-03-21 19:42] VITALS: BP 107/72
[2019-03-22] VITALS: BP 113/72
[2019-03-22] MEDS: D5W IV SCH ×3 (04:08→13:29)
[2019-03-22] MEDS: POTASSIUM CHLORIDE IV SCH ×3 (04:08→13:29)
[2019-03-22] MEDS: PIPERACILLIN/TAZO 4.5 GM/NS 100 ML IV SCH ×6 (05:54→23:23)
[2019-03-22] MEDS: CHLORHEXIDINE 0.12% SOLN 15 ML (PERIDEX) UDC PO SCH ×4 (05:54→22:03)
[2019-03-22 06:11] LABS: BASOPHILS % (AUTO) 0 % (0-10); EOSINOPHILS # (AUTO) 0.1 10^3/uL (0.0-0.3); EOSINOPHILS % (AUTO) 1 % (0-10); HEMATOCRIT 40 % (40-54); HEMOGLOBIN 12.7 G/DL (13.3-17.7); LYMPHOCYTES % (AUTO) 12 % (12-44); MEAN CORPUSCULAR HEMOGLOBIN 31 PG (25-34); MEAN CORPUSCULAR HGB CONC 32 G/DL (32-36); MEAN CORPUSCULAR VOLUME 97 FL (80-99); MONOCYTES # (AUTO) 1.3 X 10^3 (0.0-1.0); MONOCYTES % (AUTO) 8 % (0-12); NEUTROPHILS # (AUTO) 12.8 X 10^3 (1.8-7.8); NEUTROPHILS % (AUTO) 79 % (42-75); PLATELET COUNT 71 10^3/uL (130-400); RED CELL DISTRIBUTION WIDTH 15.3 % (10.0-14.5); WHITE BLOOD COUNT 16.1 10^3/uL (4.3-11.0)
[2019-03-22 06:34] LABS: ALANINE AMINOTRANSFERASE 32 U/L (0-55); ALBUMIN 2.5 GM/DL (3.2-4.5); ALKALINE PHOSPHATASE 74 U/L (40-136); BUN/CREATININE RATIO 14; CALCIUM 7.5 MG/DL (8.5-10.1); CARBON DIOXIDE 22 MMOL/L (21-32); CHLORIDE 109 MMOL/L (98-107); CREATININE SERUM 0.93 MG/DL (0.60-1.30); GFR ESTIMATED > 60; GLUCOSE 119 MG/DL (70-105); MAGNESIUM 2.3 MG/DL (1.6-2.4); SODIUM 141 MMOL/L (135-145); TOTAL PROTEIN 5.6 GM/DL (6.4-8.2)
[2019-03-22] MEDS: MAGNESIUM 1 GM/100 ML IVPB 100 ML IV SCH (07:39)
[2019-03-22] MEDS: POTASSIUM CL 10MEQ/50ML IVPB 50 ML IV SCH (07:39)
[2019-03-22] MEDS: KCL 20 MEQ TAB (K-DUR) PO SCH (07:40)
--- NOTE | 2019-03-22 07:44 | Diagnostic Imaging Report ---
INDICATION: Dyspnea. TECHNIQUE: Single view chest 3:41 AM. CORRELATION STUDY: 03/21/2019 FINDINGS: Heart size enlarged but stable. Vasculature is overall slightly increased. Continued combination of infiltrate and effusion left lung base relatively stable to slightly improved. Minimal atelectasis of the right lung base and right midlung field. IMPRESSION: 1. Continued infiltrate and effusion left lung base stable to slightly improved. Minimal infiltrate right lung base. Dictated by: Dictated on workstation # [id number]
[2019-03-22 08:00] VITALS: BP 113/79
[2019-03-22 12:00] VITALS: BP 112/74
--- NOTE | 2019-03-22 13:47 | Progress Note - Hospitalist ---
Subjective HPI/CC On Admission Date Seen by Provider: Mar 22, 2019 Time Seen by Provider: 13:15 Chief complaint: Found down at home HPI: This is a 59yoWM clinic clinic Pt of [facility] who was brought in after being found down at home by his friend, probably for about three days. Pt was foundto be hypothermic and severe UTI with renal failure and pneumonia. Pt remains with altered mental status and appears to be gravely ill. His prognosis is extremely poor. Friend is at the bedside and does not know of any family that he has. Subjective/Events-last exam Patient is sitting up eating is awake and alert and knows that he's in [place] at the hospital. This is vastly improved from yesterday. He has a laura uriostegui Сергей present from the [facility] who notes that Michael had lost his and become 2 years ago. He showed me pictures of the house that he lives in with cigarette butts throughout the house, trash, hideously soiled bathroom, and beer cans. Really not fit to live in. Review of Systems Neurological: Weakness Objective Exam Vital Signs Vital Signs Date Time Temp Pulse Resp B/P (MAP) Pulse Ox O2 Delivery O2 Flow Rate FiO2 03/22/19 08:34 Room Air 03/22/19 08:00 37.2 66 18 113/79 (90) 99 Capillary Refill : Less Than 3 SecondsLess Than 3 Seconds General Appearance: Chronically ill Neck: Supple Respiratory: Lungs Clear, Normal Breath Sounds, No Accessory Muscle Use, No Respiratory Distress Cardiovascular: Regular Rate, Rhythm, No Gallop, No Murmur Gastrointestinal: Soft Extremity: No Pedal Edema Results/Procedures Lab Laboratory Tests 03/22/19 05:22 03/22/19 05:27 Patient resulted labs reviewed. Assessment/Plan Assessment and Plan Assess & Plan/Chief Complaint Altered Mental Status-most likely secondary to chronic alcohol abuse-CT head negative Hx of Alcohol abuse UTI Lower Lobe PNA-on Zosyn Sepsis-resolved Nicotine cravings Elevated liver enzymes will get a abdominal sonogram tomorrow Poor social situation with substandard housing and environment will need social work DERRICK KELLY MD Mar 22, 2019 13:47 POS
[2019-03-22 16:10] VITALS: BP 154/84
[2019-03-22 20:55] VITALS: BP 117/79
[2019-03-23 00:25] VITALS: BP 139/82
[2019-03-23 05:24] LABS: BASOPHILS % (AUTO) 0 % (0-10); EOSINOPHILS # (AUTO) 0.1 10^3/uL (0.0-0.3); EOSINOPHILS % (AUTO) 0 % (0-10); HEMATOCRIT 42 % (40-54); HEMOGLOBIN 13.8 G/DL (13.3-17.7); LYMPHOCYTES % (AUTO) 11 % (12-44); MEAN CORPUSCULAR HEMOGLOBIN 31 PG (25-34); MEAN CORPUSCULAR HGB CONC 33 G/DL (32-36); MEAN CORPUSCULAR VOLUME 96 FL (80-99); MEAN PLATELET VOLUME 13.5 FL (7.4-10.4); MONOCYTES # (AUTO) 1.8 X 10^3 (0.0-1.0); MONOCYTES % (AUTO) 10 % (0-12); NEUTROPHILS # (AUTO) 14.3 X 10^3 (1.8-7.8); NEUTROPHILS % (AUTO) 78 % (42-75); PLATELET COUNT 98 10^3/uL (130-400); RED CELL DISTRIBUTION WIDTH 15.8 % (10.0-14.5); WHITE BLOOD COUNT 18.3 10^3/uL (4.3-11.0)
[2019-03-23 05:49] LABS: BUN/CREATININE RATIO 10; CALCIUM 8.3 MG/DL (8.5-10.1); CARBON DIOXIDE 23 MMOL/L (21-32); CHLORIDE 106 MMOL/L (98-107); CREATININE SERUM 1.03 MG/DL (0.60-1.30); GFR ESTIMATED > 60; GLUCOSE 107 MG/DL (70-105); MAGNESIUM 2.1 MG/DL (1.6-2.4); PHOSPHORUS 2.1 MG/DL (2.3-4.7); POTASSIUM 3.9 MMOL/L (3.6-5.0); SODIUM 140 MMOL/L (135-145)
[2019-03-23] MEDS: POTASSIUM CL 10MEQ/50ML IVPB 50 ML IV SCH (06:26)
[2019-03-23] MEDS: KCL 20 MEQ TAB (K-DUR) PO SCH (06:26)
[2019-03-23] MEDS: MAGNESIUM 1 GM/100 ML IVPB 100 ML IV SCH (06:28)
[2019-03-23] MEDS: CHLORHEXIDINE 0.12% SOLN 15 ML (PERIDEX) UDC PO SCH ×3 (06:40→22:41)
[2019-03-23] MEDS: PIPERACILLIN/TAZO 4.5 GM/NS 100 ML IV SCH ×6 (06:40→22:41)
--- NOTE | 2019-03-23 07:39 | Pulmonary Progress Note ---
Subjective Time Seen by a Provider: 07:39 Subjective/Events-last exam NO complications noted. Sepsis Event Evaluation Height, Weight, BMI Height: '" Weight: lbs. oz. kg; 25.00 BMI Method: Exam Exam Vital Signs Date Time Temp Pulse Resp B/P (MAP) Pulse Ox O2 Delivery O2 Flow Rate FiO2 03/23/19 00:25 36.6 68 18 139/82 (101) 99 Room Air 03/22/19 20:55 36.7 70 16 117/79 (92) 98 Room Air 03/22/19 20:00 Room Air 03/22/19 16:10 36.7 79 20 154/84 (107) 96 Room Air 03/22/19 12:00 35.8 74 18 112/74 (87) 99 Room Air 03/22/19 08:34 Room Air 03/22/19 08:00 37.2 66 18 113/79 (90) 99 Room Air I & O 03/23/19 07:00 Intake Total 2410 ml Output Total 200 ml Balance 2210 ml Height & Weight Height: '" Weight: lbs. oz. kg; 25.00 BMI Method: General Appearance: No Apparent Distress, Chronically ill HEENT: PERRL/EOMI, Normal ENT Inspection Neck: Supple Respiratory: Lungs Clear, Normal Breath Sounds, No Accessory Muscle Use, No Respiratory Distress Cardiovascular: Regular Rate, Rhythm, No Gallop, No Murmur Capillary Refill: Less Than 3 Seconds Gastrointestinal: non tender, soft Extremity: No Pedal Edema Neurologic/Psychiatric: Depressed Affect, Disoriented Skin: Pallor Results Lab Laboratory Tests 03/22/19 05:22 03/22/19 05:27 03/23/19 04:45 Assessment/Plan Assessment/Plan Sepsis- improving - Zosyn -Persistent leukocytosis no fever -CXR is improving 'and not requiring oxygen elevated AST with Hyperbilirubinemia -improving -Liver US pending Persistent leukocytosis possibly secondary to cholecystitis -Will defer to [facility] and surgery Atelectasis - improving -PT is on RA Acute Kidney Injury - resolved Malnutrition Alcohol abuse -Education ELEONORA HENSLEY DO Mar 23, 2019 07:39 POS
[2019-03-23] MEDS ORDERED: SODIUM PHOSPHATE INJ 30 MM in NS (IVPB) 250 ML IV NR (07:45)
[2019-03-23 08:00] VITALS: BP 115/70
--- NOTE | 2019-03-23 08:21 | Diagnostic Imaging Report ---
Indication: Shortness of breath Portable chest 4:41 AM Heart size and pulmonary vascularity are normal. There is some atelectasis left lower lung. Right lung is clear. There are no effusions or pneumothoraces. IMPRESSION: Left lower lung atelectasis. No change from the previous day. Dictated by: Dictated on workstation # [id number]
--- NOTE | 2019-03-23 09:59 | Diagnostic Imaging Report ---
INDICATION: Elevated liver function tests. FINDINGS: The liver is normal in size at 17 cm. No discrete liver mass is identified. Parenchymal pattern does show homogeneous echogenicity. The portal vein is patent and demonstrates normal direction of flow. The gallbladder appears to be stone filled. There also appears to be a large amount of gallbladder sludge. The wall thickness is increased at approximately 4 mm. No pericholecystic fluid is identified. No definite biliary duct dilatation is detected. Spleen appears to be normal in size. Aorta was obscured in the proximal and midportion by bowel gas. Distal aorta is non-aneurysmal. The IVC is patent. Right and left kidneys are unremarkable. No calculi or hydronephrosis is seen. There is no ascites. IMPRESSION: 1. Stone filled gallbladder with gallbladder wall thickening, suspicious for acute cholecystitis. Hepatobiliary scan may be useful for further evaluation. 2. No other significant abnormality is detected. Dictated by: Dictated on workstation # [id number]
--- NOTE | 2019-03-23 11:48 | NUR ---
Pt's friend states he has picutures of pt's home and essentially describes it is as uninhabitable. He states there was no evidence of plumbing or heat. He states pt would be unable to reach his stove due the quantity of trash on his floor.
[2019-03-23 12:00] VITALS: BP 124/81
--- NOTE | 2019-03-23 12:15 | Physical Therapy Daily Note ---
PT Daily Note-Current Subjective Patient agrees to PT at this time. Patient is able to better answer questions than previous tx, but still confused and seeing/talking to people who are not present in the room. Pain Numeric Pain Scale: 0-No Pain Location: No Pain Reported Mental Status Patient Orientation: Confused Attachments: IV Transfers SCALE: Activities may be completed with or without assistive devices. 0-Mebtxpsqnw-oanfgfm completes the activity by him/herself with no assistance from a helper. 5-Set-up or Clean-up Assistance-helper sets up or cleans up; patient completes activity. [place] assists only prior to or following the activity. 4-Supervision or Touching Assistance-helper provides verbal cues and/or touching/steadying and/or contact guard assistance as patient completes activity. Assistance may be provided throughout the activity or intermittently. 3-Partial/Moderate Assistance-helper does LESS THAN HALF the effort. [place] lifts, holds or supports trunk or limbs, but provides less than half the effort. 2-Substantial/Maximal Assistance-helper does MORE THAN HALF the effort. [place] lifts or holds trunk or limbs and provides more than half the effort. 7-Cxrhmlzup-cgrwby does ALL the effort. Patient does none of the effort to complete the activity. Or, the assistance of 2 or more helpers is required for the patient to complete the activity. If activity was not attempted, code reason: 7-Patient Refused. 9-Not Applicable-not attempted and the patient did not perform the activity before the current illness, exacerbation or injury. 10-Not Attempted due to Environmental Limitations-(lack of equipment, weather restraints, etc.). 88-Not Attempted due to Medical Conditions or Safety Concerns. Transfers (B, C, W/C): 4 Roll Left to Right (QC): 4 Sit to Stand (QC): 4 Gait Training Does the Patient Walk?: Yes Gait: 3 Distance: 100' Walk 10 feet (QC): 3 Walk 50 ft with 2 Turns(QC): 3 Gait Assistive Device: FWW ataxic gait, requires assistance to guide walker and self, frequent LOB Assessment Patient still confused but able to follow more directions than during pervious sessions. Patient able to sit to EOB with cues. Stood with minimal assistance. Patient demonstrated difficulty maintaining balance while standing and had frequent episodes of slight LOB during tx. Patient ambulated 100' with moderate assistance, requiring guidance of walker and self. Patient gait unsteady and ataxic. Patient positioned in chair with chair alarm set. PT Collection Development Librarian Goals Shelter Goals PT Collection Development Librarian Goals Time Frame: Mar 27, 2019 Sit to Lying (QC): 6 Lying-Sitting on Side/Bed(QC): 6 Sit to Stand (QC): 6 Roll Left to Right (QC): 6 Chair/Wus-ec-Fqwls Xfer(QC): 6 Car Transfer (QC): 6 Does the Patient Walk: Yes Distance: 200' Walk 10 feet (QC): 6 Walk 10ft-Uneven Surface(QC): 6 Walk 50ft with 2 Turns (QC): 6 Walk 150 ft (QC): 6 # of Steps: 3 1 Step (curb) (QC): 6 4 Steps (QC): 6 PT Plan Treatment/Plan Treatment Plan: Continue Plan of Care Treatment Plan: Bed Mobility, Education, Functional Activity Malia, Functional Strength, Gait, Safety, Therapeutic Exercise, Transfers Treatment Duration: Mar 27, 2019 Frequency: 6 times per week Estimated Hrs Per Day: .25 hour per day Patient and/or Family Agrees t: Yes Time/GCodes Time In: 1117 Time Out: 1132 Total Billed Treatment Time: 15 Total Billed Treatment 1 visit GT 15min GUADALUPE PRADO PT Mar 23, 2019 12:15 POS
--- NOTE | 2019-03-23 12:55 | Occupational Ther Daily Note ---
OT Current Status-Daily Note Subjective Pt alert, sitting in recliner. Pt requested to have shldr basilio and lauren due to the war that was going on. When asked about which war, pt stated maybe 1918 or 1974 or 1965. Pt was reoriented and then stated there must be something wrong with my head. Mental Status/Objective Patient Orientation: Person ADL-Treatment Therapy Code Descriptions/Definitions Functional [place] Measure: 0=Not Assessed/NA 4=Minimal Assistance 1=Total Assistance 5=Supervision or Setup 2=Maximal Assistance 6=Modified [place] 3=Moderate Assistance 7=Complete IndependenceSCALE: Activities may be completed with or without assistive devices. 5-Ftbyysfgfp-oikrupg completes the activity by him/herself with no assistance from a helper. 5-Set-up or Clean-up Assistance-helper sets up or cleans up; patient completes activity. [place] assists only prior to or following the activity. 4-Supervision or Touching Assistance-helper provides verbal cues and/or touching/steadying and/or contact guard assistance as patient completes activity. Assistance may be provided throughout the activity or intermittently. 3-Partial/Moderate Assistance-helper does LESS THAN HALF the effort. [place] lifts, holds or supports trunk or limbs, but provides less than half the effort. 2-Substantial/Maximal Assistance-helper does MORE THAN HALF the effort. [place] lifts or holds trunk or limbs and provides more than half the effort. 1-Ydnhbrlto-qbmxxe does ALL the effort. Patient does none of the effort to complete the activity. Or, the assistance of 2 or more helpers is required for the patient to complete the activity. If activity was not attempted, code reason: 7-Patient Refused. 9-Not Applicable-not attempted and the patient did not perform the activity before the current illness, exacerbation or injury. 10-Not Attempted due to Environmental Limitations-(lack of equipment, weather restraints, etc.). 88-Not Attempted due to Medical Conditions or Safety Concerns. Other Treatment Pt completed 3 UE exercises against gravity. At beginning 5 reps of each pt was strong and completed full AROM, last 5 reps of each decreased AROM and increased fatigue. Decreased activity tolerance and decreased attention span. After therapy, pt sitting in recliner with call light/phone in reach. All needs met in room. OT Short Term Goals Short Term Goals Time Frame: Mar 27, 2019 1=Demonstrate adherence to instructed precautions during ADL tasks. 2=Patient will verbalize/demonstrate understanding of assistive devices/modifications for ADL. 3=Patient will improve strength/tolerance for activity to enable patient to perform ADL's. OT Quill Reamer Goals Quill Reamer Goals Time Frame: Mar 27, 2019 Eating (QC): 6 Oral Hygiene (QC): 6 Shower/Bathe Self (QC): 4 Upper Body Dressing (QC): 5 Lower Body Dressing (QC): 4 On/Off Footwear (QC): 4 Toileting Hygiene (QC): 4 Toilet/Commode Transfer (QC): 4 Additional Goals: 1-Demonstrate ADL Tasks, 2-Verbalize Understanding, 3- ImproveStrength/Malia 1=Demonstrate adherence to instructed precautions during ADL tasks. 2=Patient will verbalize/demonstrate understanding of assistive devices/modifications for ADL. 3=Patient will improve strength/tolerance for activity to enable patient to perform ADL's. OT Education/Plan Problem List/Assessment Assessment: Decreased Activ Tolerance, Decreased Safety Aware, Decreased UE Strength, Impaired Cognition, Impaired Self-Care Skills Discharge Recommendations Plan/Recommendations: Continue POC Treatment Plan/Plan of Care Patient would benefit from OT for education, treatment and training to promote independence in ADL's, mobility, safety and/or upper extremity function for ADL's. Plan of Care: ADL Retraining, Functional Mobility, UE Funct Exercise/Act Treatment Duration: Mar 27, 2019 Frequency: 5 times per week Estimated Hrs Per Day: .25 hour per day Agreement: Yes Rehab Potential: Guarded Time/GCodes Start Time: 11:48 Stop Time: 11:58 Total Time Billed (hr/min): 10 Billed Treatment Time 1 visit-EX 1 (10 min) LEVI GARCIA Mar 23, 2019 12:55 POS
--- NOTE | 2019-03-23 13:54 | NUR ---
RD ASSESSMENT PMHx: ETOH use/abuse; unknown other PMH d/t AMS PT INTERACTION: Pt was awake and pleasant during nutrition assessment. Note pt has AMS, per chart review. Pt states current appetite is not bad and has been for some time. Note pt avg PO intake <50% x3d, per chart review. Pt states following a regular diet at home, and currently has no difficulty chewing/swallowing food. Pt states no recent issues with n/v/c/d at this time. Note last BM was 03/23 and pt not currently on bowel regimen at this time. Pt states no recent wt changes. Note unable to determine recent wt hx, per chart review. ABNORMAL NUTRITION-RELATED LAB VALUES: glu 107 (H); Ca 8.3 (L); phos 2.1 (L) Est. kcal needs: 1221-7318 kcal (20-25 kcal/kg) Est. Pro needs: 73-92 g Pro (0.8-1.0 g Pro/kg) PES STATEMENT: Inadequate oral intake (NI-2.1) related to loss of appetite as evidenced by pt interview INTERVENTION: Continue with current diet order of DYS3 Advanced/Ground Meat diet. Add Ensure Enlive (vary) to meals BID. Provides 350 kcal and 20 g Pro per serving. MONITOR/EVALUATE: PO Intake; Plan of Care; Hydration Status; Weight Status; Lab Values Darius Valdes, MS, RD, LD
[2019-03-23 16:00] VITALS: BP 117/74
[2019-03-23] MEDS: HALOPERIDOL 5 MG/ML (HALDOL) AMP IM PRN (16:10)
--- NOTE | 2019-03-23 16:10 | Progress Note ---
Subjective Subjective/Events-last exam Seen at 1235 pm. Afebrile, no acute events. Seems to be having some hallucinations- asking what kind of equipment is in his room while pointing to bathroom door. Objective Exam Last Set of Vital Signs Vital Signs Date Time Temp Pulse Resp B/P (MAP) Pulse Ox O2 Delivery O2 Flow Rate FiO2 03/23/19 12:00 36.6 83 20 124/81 (95) 96 Room Air Capillary Refill : Less Than 3 SecondsLess Than 3 Seconds I&O Intake and Output 03/23/19 00:00 Intake Total 3790 ml Output Total 600 ml Balance 3190 ml Intake Oral 1120 ml IV Total 2670 ml Output Urine Total 600 ml # Voids 1 # Bowel Movements 1 General: Alert, No Acute Distress Lungs: Clear to Auscultation, Normal Air Movement Heart: Regular Rate, No Murmurs Abdomen: Normal Bowel Sounds, Soft, No Tenderness Neuro: Other (oriented to self only) Results/Procedures Lab Laboratory Tests 03/23/19 04:45: White Blood Count 18.3H, Red Blood Count 4.42, Hemoglobin 13.8, Hematocrit 42, Mean Corpuscular Volume 96, Mean Corpuscular Hemoglobin 31, Mean Corpuscular Hemoglobin Concent 33, Red Cell Distribution Width 15.8H, Platelet Count 98L, Mean Platelet Volume 13.5H, Neutrophils (%) (Auto) 78H, Lymphocytes (%) (Auto) 11L, Monocytes (%) (Auto) 10, Eosinophils (%) (Auto) 0, Basophils (%) (Auto) 0, Neutrophils # (Auto) 14.3H, Lymphocytes # (Auto) 2.0, Monocytes # (Auto) 1.8H, Eosinophils # (Auto) 0.1, Basophils # (Auto) 0.0, Sodium Level 140, Potassium Level 3.9, Chloride Level 106, Carbon Dioxide Level 23, Anion Gap 11, Blood Urea Nitrogen 10, Creatinine 1.03, Estimat Glomerular Filtration Rate > 60, BUN/Creatinine Ratio 10, Glucose Level 107H, Calcium Level 8.3L, Phosphorus Level 2.1L, Magnesium Level 2.1 Microbiology 03/18/19 Blood Culture - Preliminary, Resulted No growth 03/19/19 MRSA Screen - Final, Complete MRSA not isolated 03/18/19 Urine Culture - Final, Complete NO GROWTH Assessment/Plan Assessment/Plan (1) Left lower lobe pneumonia Status: Acute Assessment & Plan: Infiltrate vs atelectasis on admit CXR. On Zosyn. Qualifiers: Qualified Codes: J18.1 - Lobar pneumonia, unspecified organism (2) Acute renal failure Status: Resolved Qualifiers: Qualified Codes: N17.9 - Acute kidney failure, unspecified (3) Hypothermia Status: Resolved Qualifiers: Qualified Codes: T68.XXXA - Hypothermia, initial encounter (4) Severe sepsis Status: Resolved (5) Thrombocytopenia Assessment & Plan: Unknown duration, LFTs elevated on admit but improving. (6) Altered mental status Status: Acute Assessment & Plan: Found down before being brought in. CT head okay. Currently alert but oriented only to self and having some apparent hallucinations. Haldol prn. (7) Elevated liver enzymes Assessment & Plan: AST/ALT improving, bilirubin still elevated, see below. (8) Cholelithiasis Assessment & Plan: Abd US with cholelithiasis and wall thickening, Surgery notified. (9) DVT prophylaxis Status: Acute Assessment & Plan: Enoxaparin DARCIE CHOW MD Mar 23, 2019 16:10 POS
[2019-03-23] MEDS: ENOXAPARIN 40 MG/0.4 ML (LOVENOX) SYR SQ SCH (17:13)
[2019-03-23 19:40] VITALS: BP 130/78
--- NOTE | 2019-03-23 20:58 | Progress Note - Surgery ---
Subjective Date Seen by a Provider: Mar 23, 2019 Time Seen by a Provider: 20:55 Subjective/Events-last exam Patient tolerating diet he states. Not having any abdominal pain. Had gb u/s demonstrating stones and wall thickening. Does have elevated liver enzymes. Patient does seem slightly confused. Denies n/v fever sweats chills shortness of breath or chest pain. Objective Exam Vital Signs Date Time Temp Pulse Resp B/P (MAP) Pulse Ox O2 Delivery O2 Flow Rate FiO2 03/23/19 19:40 35.7 74 16 130/78 (95) 99 Room Air 03/23/19 16:00 36.6 94 18 117/74 (88) 98 Room Air 03/23/19 12:00 36.6 83 20 124/81 (95) 96 Room Air 03/23/19 08:00 97 Room Air 03/23/19 08:00 37.1 82 20 115/70 (85) 97 Room Air 03/23/19 00:25 36.6 68 18 139/82 (101) 99 Room Air 03/22/19 20:55 36.7 70 16 117/79 (92) 98 Room Air I & O 03/23/19 07:00 Intake Total 2930 ml Output Total 800 ml Balance 2130 ml Capillary Refill : Less Than 3 SecondsLess Than 3 Seconds General Appearance: No Apparent Distress, Chronically ill, Cachetic HEENT: PERRL/EOMI, Normal ENT Inspection Neck: Full Range of Motion, Normal Inspection Respiratory: Chest Non Tender, No Accessory Muscle Use, No Respiratory Distress, Decreased Breath Sounds Cardiovascular: Regular Rate, Rhythm Gastrointestinal: normal bowel sounds, non tender, soft; No tenderness Extremity: Non Tender, No Calf Tenderness, No Pedal Edema Neurologic/Psychiatric: Alert (to person), contract project manager II-XII Norm as Tested; No Facial Droop, No Motor Weakness, No Sensory Deficit Skin: Normal Color, Warm/Dry Other comments back mass pedunculated Results Lab Laboratory Tests 03/23/19 04:45: White Blood Count 18.3H, Red Blood Count 4.42, Hemoglobin 13.8, Hematocrit 42, Mean Corpuscular Volume 96, Mean Corpuscular Hemoglobin 31, Mean Corpuscular Hemoglobin Concent 33, Red Cell Distribution Width 15.8H, Platelet Count 98L, Mean Platelet Volume 13.5H, Neutrophils (%) (Auto) 78H, Lymphocytes (%) (Auto) 11L, Monocytes (%) (Auto) 10, Eosinophils (%) (Auto) 0, Basophils (%) (Auto) 0, Neutrophils # (Auto) 14.3H, Lymphocytes # (Auto) 2.0, Monocytes # (Auto) 1.8H, Eosinophils # (Auto) 0.1, Basophils # (Auto) 0.0, Sodium Level 140, Potassium Level 3.9, Chloride Level 106, Carbon Dioxide Level 23, Anion Gap 11, Blood Urea Nitrogen 10, Creatinine 1.03, Estimat Glomerular Filtration Rate > 60, BUN/Creatinine Ratio 10, Glucose Level 107H, Calcium Level 8.3L, Phosphorus Level 2.1L, Magnesium Level 2.1 Microbiology 03/18/19 Blood Culture - Preliminary, Resulted No growth 03/19/19 MRSA Screen - Final, Complete MRSA not isolated 03/18/19 Urine Culture - Final, Complete NO GROWTH Assessment/Plan Assessment/Plan Assessment/Plan Pedunculated back mass Severe Sepsis Hypothermia ARF Left Lower Lobe Pneumonia UTI cholelithiasis with wall thickening patient tolerating diet and not having any pain he reports or on exam would get HIDA scan without EF to evaluate if cystic duct patent for signs of cholecystitis no surgical intervention at this time, will follow ABDOUL JAVIER DO Mar 23, 2019 20:58 POS
[2019-03-23] MEDS ORDERED: NS (IVPB) 100 ML ONE (22:23)
[2019-03-23] MEDS ORDERED: PIPERACILLIN/TAZO 4.5 GM VIAL (ZOSYN) IV ONE (22:23)
[2019-03-23 23:57] VITALS: BP 154/65
[2019-03-24 04:00] VITALS: BP 143/78
[2019-03-24 05:00] LABS: BASOPHILS % (AUTO) 0 % (0-10); EOSINOPHILS # (AUTO) 0.1 10^3/uL (0.0-0.3); EOSINOPHILS % (AUTO) 1 % (0-10); HEMATOCRIT 36 % (40-54); HEMOGLOBIN 11.8 G/DL (13.3-17.7); LYMPHOCYTES # (AUTO) 1.7 X 10^3 (1.0-4.0); LYMPHOCYTES % (AUTO) 11 % (12-44); MEAN CORPUSCULAR HEMOGLOBIN 31 PG (25-34); MEAN CORPUSCULAR HGB CONC 33 G/DL (32-36); MEAN CORPUSCULAR VOLUME 96 FL (80-99); MEAN PLATELET VOLUME 11.9 FL (7.4-10.4); MONOCYTES # (AUTO) 1.4 X 10^3 (0.0-1.0); MONOCYTES % (AUTO) 10 % (0-12); NEUTROPHILS # (AUTO) 11.9 X 10^3 (1.8-7.8); NEUTROPHILS % (AUTO) 78 % (42-75); PLATELET COUNT 97 10^3/uL (130-400); RED CELL DISTRIBUTION WIDTH 15.8 % (10.0-14.5); WHITE BLOOD COUNT 15.2 10^3/uL (4.3-11.0)
[2019-03-24 05:30] LABS: BUN/CREATININE RATIO 9; CARBON DIOXIDE 24 MMOL/L (21-32); CHLORIDE 107 MMOL/L (98-107); CREATININE SERUM 0.82 MG/DL (0.60-1.30); GFR ESTIMATED > 60; GLUCOSE 84 MG/DL (70-105); MAGNESIUM 1.7 MG/DL (1.6-2.4); PHOSPHORUS 2.5 MG/DL (2.3-4.7); POTASSIUM 3.3 MMOL/L (3.6-5.0); SODIUM 138 MMOL/L (135-145)
[2019-03-24] MEDS: MAGNESIUM 1 GM/100 ML IVPB 100 ML IV SCH (05:35)
[2019-03-24] MEDS ORDERED: NS (IVPB) 100 ML ONE (06:05)
[2019-03-24] MEDS ORDERED: PIPERACILLIN/TAZO 4.5 GM VIAL (ZOSYN) IV ONE (06:05)
[2019-03-24] MEDS: PIPERACILLIN/TAZO 4.5 GM/NS 100 ML IV SCH ×6 (06:21→22:41)
[2019-03-24] MEDS: CHLORHEXIDINE 0.12% SOLN 15 ML (PERIDEX) UDC PO SCH ×3 (06:22→22:41)
--- NOTE | 2019-03-24 06:28 | Pulmonary Progress Note ---
Subjective Time Seen by a Provider: 06:31 Subjective/Events-last exam Pt is on RA. No complications noted. Sepsis Event Evaluation Height, Weight, BMI Height: '" Weight: lbs. oz. kg; 25.00 BMI Method: Exam Exam Vital Signs Date Time Temp Pulse Resp B/P (MAP) Pulse Ox O2 Delivery O2 Flow Rate FiO2 03/24/19 04:00 36.6 70 16 143/78 (99) 94 Room Air 03/23/19 23:57 36.7 78 18 154/65 (94) 98 Room Air 03/23/19 20:18 Room Air 03/23/19 19:40 35.7 74 16 130/78 (95) 99 Room Air 03/23/19 16:00 36.6 94 18 117/74 (88) 98 Room Air 03/23/19 12:00 36.6 83 20 124/81 (95) 96 Room Air 03/23/19 08:00 97 Room Air 03/23/19 08:00 37.1 82 20 115/70 (85) 97 Room Air I & O 03/24/19 07:00 Intake Total 700 ml Output Total 800 ml Balance -100 ml Height & Weight Height: '" Weight: lbs. oz. 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 I am going to sign off. Please call with any questions. ELEONORA HENSLEY DO Mar 24, 2019 06:28 POS
[2019-03-24 06:43] LABS: EOSINOPHILS % (MANUAL) 1 %; LYMPHOCYTES % (MANUAL) 10 %; MONOCYTES % (MANUAL) 7 %; NEUTROPHILS % (MANUAL) 81 %; REACTIVE LYMPHOCYTES 1 %
[2019-03-24 08:30] VITALS: BP 133/80
[2019-03-24] MEDS ORDERED: KCL 20 MEQ TAB (K-DUR) PO ONE (08:30)
--- NOTE | 2019-03-24 09:17 | Diagnostic Imaging Report ---
INDICATION: Elevated liver function test with stone filled gallbladder on recent ultrasound. FINDINGS: The patient was administered 5.08 mCi of Tc 99m Choletec and sequential imaging was performed over the right upper abdomen. There is progressive, homogeneous accumulation of radiotracer within the liver parenchyma. There is filling of the bile ducts. There is progressive clearance of activity from the liver parenchyma and free flow of radiotracer into loops of small bowel. There is no filling of the gallbladder after 1 hour of imaging. IMPRESSION: 1. Hepatobiliary scan demonstrates non-filling of the gallbladder. Although imaging was only performed for 1 hour, raises concern for cholecystitis. Dictated by: Dictated on workstation # [id number]
[2019-03-24] MEDS: POTASSIUM CL 10MEQ/50ML IVPB 50 ML IV SCH (09:32)
--- NOTE | 2019-03-24 09:32 | Physical Therapy Daily Note ---
PT Daily Note-Current Subjective Patient agrees to PT at this time. Patient reports he has been up once already this morning and is reluctant to get out of bed because he feels comfortable and will need to go to the bathroom upon standing. Patient reports general pain "here and there" throughout the body but unable to localize or rate. Mental Status Patient Orientation: Confused Attachments: IV Transfers SCALE: Activities may be completed with or without assistive devices. 6-Qeyrwarmtu-pjzkxlc completes the activity by him/herself with no assistance from a helper. 5-Set-up or Clean-up Assistance-helper sets up or cleans up; patient completes activity. [place] assists only prior to or following the activity. 4-Supervision or Touching Assistance-helper provides verbal cues and/or touching/steadying and/or contact guard assistance as patient completes activity. Assistance may be provided throughout the activity or intermittently. 3-Partial/Moderate Assistance-helper does LESS THAN HALF the effort. [place] lifts, holds or supports trunk or limbs, but provides less than half the effort. 2-Substantial/Maximal Assistance-helper does MORE THAN HALF the effort. [place] lifts or holds trunk or limbs and provides more than half the effort. 3-Zxksumtde-qiatvv does ALL the effort. Patient does none of the effort to complete the activity. Or, the assistance of 2 or more helpers is required for the patient to complete the activity. If activity was not attempted, code reason: 7-Patient Refused. 9-Not Applicable-not attempted and the patient did not perform the activity before the current illness, exacerbation or injury. 10-Not Attempted due to Environmental Limitations-(lack of equipment, weather restraints, etc.). 88-Not Attempted due to Medical Conditions or Safety Concerns. Transfers (B, C, W/C): 4 Sit to Stand (QC): 4 Gait Training Does the Patient Walk?: Yes Gait: 3 Distance: 10' Gait Assistive Device: FWW ataxic, unsteady, frequent LOB Assessment Patient sat to EOB with no assistance but frequent cues to bring LEs to edge and scoot forward. Patient stood with FWW, requiring reminders to use at least one hand to push up off the bed instead of pulling on walker. Once standing, patient ambulated 5' in room with unsteady, ataxic gait but did not demonstrate any severe LOB. Patient able to stand at walker for 1-2 minutes without LOB. Patient seated in recliner with nursing present to clean up patient and change gown. PT Wool Classer Goals Group Home Goals PT Group Home Goals Time Frame: Mar 27, 2019 Sit to Lying (QC): 6 Lying-Sitting on Side/Bed(QC): 6 Sit to Stand (QC): 6 Roll Left to Right (QC): 6 Chair/Ujv-qn-Rhrji Xfer(QC): 6 Car Transfer (QC): 6 Does the Patient Walk: Yes Distance: 200' Walk 10 feet (QC): 6 Walk 10ft-Uneven Surface(QC): 6 Walk 50ft with 2 Turns (QC): 6 Walk 150 ft (QC): 6 # of Steps: 3 1 Step (curb) (QC): 6 4 Steps (QC): 6 PT Plan Treatment/Plan Treatment Plan: Continue Plan of Care Treatment Plan: Bed Mobility, Education, Functional Activity Malia, Functional Strength, Gait, Safety, Therapeutic Exercise, Transfers Treatment Duration: Mar 27, 2019 Frequency: 6 times per week Estimated Hrs Per Day: .25 hour per day Patient and/or Family Agrees t: Yes Time/GCodes Time In: 852 Time Out: 910 Total Billed Treatment Time: 18 Total Billed Treatment 1 visit GT 18min GUADALUPE PRADO PT Mar 24, 2019 09:32 POS
[2019-03-24] MEDS: KCL 20 MEQ TAB (K-DUR) PO SCH (09:33)
[2019-03-24 11:36] VITALS: BP 127/73
--- NOTE | 2019-03-24 13:54 | Occupational Ther Daily Note ---
OT Current Status-Daily Note Subjective Pt alert, lying in bed. Pt asked for a beer and if he couldn't have that a bourbon and water. Pt reoriented to situation and place. Mental Status/Objective Patient Orientation: Person Attachments: IV ADL-Treatment Therapy Code Descriptions/Definitions Functional [place] Measure: 0=Not Assessed/NA 4=Minimal Assistance 1=Total Assistance 5=Supervision or Setup 2=Maximal Assistance 6=Modified [place] 3=Moderate Assistance 7=Complete IndependenceSCALE: Activities may be completed with or without assistive devices. 5-Mvwrvhpxdv-lcbipdd completes the activity by him/herself with no assistance from a helper. 5-Set-up or Clean-up Assistance-helper sets up or cleans up; patient completes activity. [place] assists only prior to or following the activity. 4-Supervision or Touching Assistance-helper provides verbal cues and/or touching/steadying and/or contact guard assistance as patient completes activity. Assistance may be provided throughout the activity or intermittently. 3-Partial/Moderate Assistance-helper does LESS THAN HALF the effort. [place] lifts, holds or supports trunk or limbs, but provides less than half the effort. 2-Substantial/Maximal Assistance-helper does MORE THAN HALF the effort. [place] lifts or holds trunk or limbs and provides more than half the effort. 3-Tgkzcrfei-gttsyq does ALL the effort. Patient does none of the effort to complete the activity. Or, the assistance of 2 or more helpers is required for the patient to complete the activity. If activity was not attempted, code reason: 7-Patient Refused. 9-Not Applicable-not attempted and the patient did not perform the activity before the current illness, exacerbation or injury. 10-Not Attempted due to Environmental Limitations-(lack of equipment, weather restraints, etc.). 88-Not Attempted due to Medical Conditions or Safety Concerns. Other Treatment Pt completed 3 UE exercises against gravity in all planes, 2 sets 10 reps. Pt fatigued quickly though only took recovery breaks after each set. After therapy, pt lying in bed with call light/phone in reach. All needs met in room. OT Short Term Goals Short Term Goals Time Frame: Mar 27, 2019 1=Demonstrate adherence to instructed precautions during ADL tasks. 2=Patient will verbalize/demonstrate understanding of assistive devices/modifications for ADL. 3=Patient will improve strength/tolerance for activity to enable patient to perform ADL's. OT Prison Goals Prison Goals Time Frame: Mar 27, 2019 Eating (QC): 6 Oral Hygiene (QC): 6 Shower/Bathe Self (QC): 4 Upper Body Dressing (QC): 5 Lower Body Dressing (QC): 4 On/Off Footwear (QC): 4 Toileting Hygiene (QC): 4 Toilet/Commode Transfer (QC): 4 Additional Goals: 1-Demonstrate ADL Tasks, 2-Verbalize Understanding, 3-ImproveStrength/[place] 1=Demonstrate adherence to instructed precautions during ADL tasks. 2=Patient will verbalize/demonstrate understanding of assistive devices/modifications for ADL. 3=Patient will improve strength/tolerance for activity to enable patient to perform ADL's. OT Education/Plan Problem List/Assessment Assessment: Decreased Activ Tolerance, Decreased UE Strength, Impaired Cognition Discharge Recommendations Plan/Recommendations: Continue POC Treatment Plan/Plan of Care Patient would benefit from OT for education, treatment and training to promote independence in ADL's, mobility, safety and/or upper extremity function for ADL's. Plan of Care: ADL Retraining, Functional Mobility, UE Funct Exercise/Act Treatment Duration: Mar 27, 2019 Frequency: 5 times per week Estimated Hrs Per Day: .25 hour per day Agreement: Yes Rehab Potential: Guarded Time/GCodes Start Time: 13:36 Stop Time: 13:47 Total Time Billed (hr/min): 11 Billed Treatment Time 1 visit-EX 1 (11 min) LEVI GARCIA Mar 24, 2019 13:54 POS
[2019-03-24] MEDS: NS IV 1000 ML 1,000 ML IV SCH (14:06)
--- NOTE | 2019-03-24 14:56 | Progress Note ---
Subjective Subjective/Events-last exam Seen at 1030. Afebrile, still somewhat confused. Objective Exam Last Set of Vital Signs Vital Signs Date Time Temp Pulse Resp B/P (MAP) Pulse Ox O2 Delivery O2 Flow Rate FiO2 03/24/19 11:36 36.7 80 20 127/73 (91) 99 Room Air Capillary Refill : Less Than 3 SecondsLess Than 3 Seconds I&O Intake and Output 03/24/19 00:00 Intake Total 960 ml Output Total 1400 ml Balance -440 ml Intake Oral 840 ml IV Total 120 ml Output Urine Total 1400 ml # Voids 2 # Bowel Movements 2 General: Alert, No Acute Distress Lungs: Clear to Auscultation, Normal Air Movement Heart: Regular Rate, No Murmurs Neuro: Other (oriented to self only) Results/Procedures Lab Laboratory Tests 03/24/19 04:25: White Blood Count 15.2H, Red Blood Count 3.76L, Hemoglobin 11.8L, Hematocrit 36L , Mean Corpuscular Volume 96, Mean Corpuscular Hemoglobin 31, Mean Corpuscular Hemoglobin Concent 33, Red Cell Distribution Width 15.8H, Platelet Count 97L, Mean Platelet Volume 11.9H, Neutrophils (%) (Auto) 78H, Lymphocytes (%) (Auto) 11L, Monocytes (%) (Auto) 10, Eosinophils (%) (Auto) 1, Basophils (%) (Auto) 0, Neutrophils # (Auto) 11.9H, Lymphocytes # (Auto) 1.7, Monocytes # (Auto) 1.4H, Eosinophils # (Auto) 0.1, Basophils # (Auto) 0.0, Neutrophils % (Manual) 81, Lymphocytes % (Manual) 10, Monocytes % (Manual) 7, Eosinophils % (Manual) 1, Reactive Lymphocytes 1, Sodium Level 138, Potassium Level 3.3L, Chloride Level 107, Carbon Dioxide Level 24, Anion Gap 7, Blood Urea Nitrogen 7, Creatinine 0.82, Estimat Glomerular Filtration Rate > 60, BUN/Creatinine Ratio 9, Glucose Level 84, Calcium Level 8.0L, Phosphorus Level 2.5, Magnesium Level 1.7 Microbiology 03/18/19 Blood Culture - Final, Complete No growth 03/19/19 MRSA Screen - Final, Complete MRSA not isolated 03/18/19 Urine Culture - Final, Complete NO GROWTH Assessment/Plan Assessment/Plan (1) Left lower lobe pneumonia Status: Acute Assessment & Plan: Infiltrate vs atelectasis on admit CXR. On Zosyn. Qualifiers: Qualified Codes: J18.1 - Lobar pneumonia, unspecified organism (2) Acute renal failure Status: Resolved Qualifiers: Qualified Codes: N17.9 - Acute kidney failure, unspecified (3) Hypothermia Status: Resolved Qualifiers: Qualified Codes: T68.XXXA - Hypothermia, initial encounter (4) Severe sepsis Status: Resolved (5) Thrombocytopenia Assessment & Plan: Unknown duration, LFTs elevated on admit but improving. (6) Altered mental status Status: Acute Assessment & Plan: Found down before being brought in. CT head okay. Currently alert but oriented only to self and having some apparent hallucinations. Haldol prn. (7) Elevated liver enzymes Assessment & Plan: AST/ALT improving, bilirubin still elevated, see below. (8) Cholelithiasis Assessment & Plan: Abd US with cholelithiasis and wall thickening, Surgery notified. 03/24 HIDA today (9) DVT prophylaxis Status: Acute Assessment & Plan: Enoxaparin DARCIE CHOW MD Mar 24, 2019 14:56 POS
[2019-03-24 16:00] VITALS: BP 133/86
[2019-03-24] MEDS: ENOXAPARIN 40 MG/0.4 ML (LOVENOX) SYR SQ SCH (16:00)
--- NOTE | 2019-03-24 17:23 | NUR ---
Discussed with pt his need for a Durable Power of Ruching Machine Operator for health Care Decisions. He visited with his friend Naresh Savage and stated he wanted to name Janette Medellin as his DPOA as he felt comfortable discussing his wishes with him, Pt also discussed his physician's findings that he needed gall bladder surgery and pt stated that if it "needed to come out" he was agreeable. DPOA paper work was witnessed placed in chart and copies given pt and Mr. Savage.Will continue to follow as pt is currently without suitable housing. Will also check with Financial services for medicaid and disability applications.
[2019-03-24 19:56] VITALS: BP 135/68
--- NOTE | 2019-03-24 20:46 | Progress Note - Surgery ---
Subjective Date Seen by a Provider: Mar 24, 2019 Time Seen by a Provider: 20:39 Subjective/Events-last exam Patient confused but pleasant. States not having any problems. WBC elevated but coming down. Not really having any pain currently. Patient with hida done today not demonstrating the gallbladder filling suggestive of cholecystitis. No family at bedside. Objective Exam Vital Signs Date Time Temp Pulse Resp B/P (MAP) Pulse Ox O2 Delivery O2 Flow Rate FiO2 03/24/19 19:56 37.1 100 22 135/68 (90) 98 Room Air 03/24/19 16:00 35.8 75 18 133/86 (102) 98 Room Air 03/24/19 11:36 36.7 80 20 127/73 (91) 99 Room Air 03/24/19 08:30 37.4 89 20 133/80 (97) 96 Room Air 03/24/19 08:00 Room Air 03/24/19 04:00 36.6 70 16 143/78 (99) 94 Room Air 03/23/19 23:57 36.7 78 18 154/65 (94) 98 Room Air I & O 03/24/19 07:00 Intake Total 700 ml Output Total 800 ml Balance -100 ml Capillary Refill : Less Than 3 SecondsLess Than 3 Seconds General Appearance: No Apparent Distress, Chronically ill, Cachetic HEENT: PERRL/EOMI, Normal ENT Inspection Neck: Full Range of Motion, Normal Inspection Respiratory: Chest Non Tender, No Accessory Muscle Use, No Respiratory Distress, Decreased Breath Sounds Cardiovascular: Regular Rate, Rhythm Gastrointestinal: normal bowel sounds, non tender, soft; No tenderness Extremity: Non Tender, No Calf Tenderness, No Pedal Edema Neurologic/Psychiatric: Alert; 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; 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; No Facial Droop, No Motor Weakness, No Sensory Deficit Skin: Normal Color, Warm/Dry Results Lab Laboratory Tests 03/24/19 04:25: White Blood Count 15.2H, Red Blood Count 3.76L, Hemoglobin 11.8L, Hematocrit 36L , Mean Corpuscular Volume 96, Mean Corpuscular Hemoglobin 31, Mean Corpuscular Hemoglobin Concent 33, Red Cell Distribution Width 15.8H, Platelet Count 97L, Mean Platelet Volume 11.9H, Neutrophils (%) (Auto) 78H, Lymphocytes (%) (Auto) 11L, Monocytes (%) (Auto) 10, Eosinophils (%) (Auto) 1, Basophils (%) (Auto) 0, Neutrophils # (Auto) 11.9H, Lymphocytes # (Auto) 1.7, Monocytes # (Auto) 1.4H, Eosinophils # (Auto) 0.1, Basophils # (Auto) 0.0, Neutrophils % (Manual) 81, Lymphocytes % (Manual) 10, Monocytes % (Manual) 7, Eosinophils % (Manual) 1, Reactive Lymphocytes 1, Sodium Level 138, Potassium Level 3.3L, Chloride Level 107, Carbon Dioxide Level 24, Anion Gap 7, Blood Urea Nitrogen 7, Creatinine 0.82, Estimat Glomerular Filtration Rate > 60, BUN/Creatinine Ratio 9, Glucose Level 84, Calcium Level 8.0L, Phosphorus Level 2.5, Magnesium Level 1.7 Microbiology 03/18/19 Blood Culture - Final, Complete No growth 03/19/19 MRSA Screen - Final, Complete MRSA not isolated 03/18/19 Urine Culture - Final, Complete NO GROWTH Assessment/Plan Assessment/Plan Assessment/Plan Pedunculated back mass Severe Sepsis Hypothermia ARF Left Lower Lobe Pneumonia UTI cholelithiasis with wall thickening cystic duct not patent on HIDA suggestive of cholecystitis. could be the reason he continues to have leukocytosis would recommend laproscopic cholecystectomy with intraoperative cholangiogram all other indicated procedures. will obtain consent. Discussed with Dr. Reardon who agrees with plan and findings. Plan to or tomorrow. ABDOUL JAVIER DO Mar 24, 2019 20:46 POS
[2019-03-25] VITALS (13 sets, daily range): BP systolic 109–147; BP diastolic 66–78
[2019-03-25] MEDS: NS IV 1000 ML 1,000 ML IV SCH ×3 (00:24→15:16)
[2019-03-25 05:12] LABS: BASOPHILS % (AUTO) 0 % (0-10); EOSINOPHILS # (AUTO) 0.1 10^3/uL (0.0-0.3); EOSINOPHILS % (AUTO) 1 % (0-10); HEMATOCRIT 34 % (40-54); HEMOGLOBIN 10.8 G/DL (13.3-17.7); LYMPHOCYTES # (AUTO) 1.8 X 10^3 (1.0-4.0); LYMPHOCYTES % (AUTO) 12 % (12-44); MEAN CORPUSCULAR HEMOGLOBIN 31 PG (25-34); MEAN CORPUSCULAR HGB CONC 32 G/DL (32-36); MEAN CORPUSCULAR VOLUME 97 FL (80-99); MEAN PLATELET VOLUME 12.3 FL (7.4-10.4); MONOCYTES # (AUTO) 1.3 X 10^3 (0.0-1.0); MONOCYTES % (AUTO) 9 % (0-12); NEUTROPHILS # (AUTO) 12.1 X 10^3 (1.8-7.8); NEUTROPHILS % (AUTO) 79 % (42-75); PLATELET COUNT 127 10^3/uL (130-400); RED CELL DISTRIBUTION WIDTH 15.6 % (10.0-14.5); WHITE BLOOD COUNT 15.3 10^3/uL (4.3-11.0)
[2019-03-25 05:37] LABS: ALANINE AMINOTRANSFERASE 37 U/L (0-55); ALBUMIN 2.3 GM/DL (3.2-4.5); ALKALINE PHOSPHATASE 73 U/L (40-136); BILIRUBIN,DIRECT 1.2 MG/DL (0.0-0.3); BILIRUBIN,INDIRECT 0.6 MG/DL; BILIRUBIN,TOTAL 1.8 MG/DL (0.1-1.0); BUN/CREATININE RATIO 8; CALCIUM 7.8 MG/DL (8.5-10.1); CARBON DIOXIDE 21 MMOL/L (21-32); CHLORIDE 110 MMOL/L (98-107); CREATININE SERUM 0.73 MG/DL (0.60-1.30); GFR ESTIMATED > 60; GLUCOSE 74 MG/DL (70-105); MAGNESIUM 1.7 MG/DL (1.6-2.4); POTASSIUM 3.5 MMOL/L (3.6-5.0); SODIUM 140 MMOL/L (135-145); TOTAL PROTEIN 5.2 GM/DL (6.4-8.2)
[2019-03-25] MEDS: MAGNESIUM 1 GM/100 ML IVPB 100 ML IV SCH (05:47)
[2019-03-25] MEDS: KCL 20 MEQ TAB (K-DUR) PO SCH (05:50)
[2019-03-25] MEDS ORDERED: POTASSIUM CL 10MEQ/50ML IVPB 50 ML IV ONE (06:00)
[2019-03-25] MEDS: POTASSIUM CL 10MEQ/50ML IVPB 50 ML IV SCH ×4 (06:10→08:42)
[2019-03-25] MEDS: CHLORHEXIDINE 0.12% SOLN 15 ML (PERIDEX) UDC PO SCH ×3 (06:11→22:11)
[2019-03-25] MEDS: PIPERACILLIN/TAZO 4.5 GM/NS 100 ML IV SCH ×6 (06:11→22:11)
[2019-03-25] MEDS ORDERED: BUP/EPI 0.5% 1:200,000 (SENSORCAINE) 30 ML VIAL ONE (09:04)
[2019-03-25] MEDS ORDERED: IOPAMIDOL 61% 30 ML (ISOVUE 300) VIAL IV ONE (09:04)
[2019-03-25] MEDS ORDERED: ONDANSETRON 4 MG/2 ML (SDV) Z0FRAN ONE (09:44)
[2019-03-25] MEDS ORDERED: fentaNYL INJECTION 100 MCG/2 ML AMP ONE (09:44)
[2019-03-25] MEDS ORDERED: ROCURONIUM 10 MG/ML 5 ML SYRINGE IV ONE (09:44)
[2019-03-25] MEDS ORDERED: DEXAMETHASONE 10 MG/ML (DECADRON) 1 ML VIAL ONE (09:44)
[2019-03-25] MEDS ORDERED: proPOfol 200 MG/20 ML (DIPRIVAN) VIAL IV ONE (09:44)
[2019-03-25] MEDS ORDERED: MIDAZOLAM 2 MG/2 ML (VERSED) VIAL ONE (09:44)
[2019-03-25] MEDS ORDERED: SEVOFLURANE (ULTANE) 15 ML INHAL SOLN ONE ×4 (09:44→11:19)
[2019-03-25] MEDS ORDERED: LIDOCAINE PF 2% 5 ML (XYLOCAINE) VIAL ONE (09:44)
--- NOTE | 2019-03-25 09:51 | Occupational Ther Daily Note ---
OT Current Status-Daily Note Subjective Pt seen EOB with certified residential medication aide, prepping for shower. Pt agreeable to shower and OT tx session, states no current pain and that he is doing "okay." Mental Status/Objective Patient Orientation: Person ADL-Treatment Therapy Code Descriptions/Definitions Functional [place] Measure: 0=Not Assessed/NA 4=Minimal Assistance 1=Total Assistance 5=Supervision or Setup 2=Maximal Assistance 6=Modified [place] 3=Moderate Assistance 7=Complete IndependenceSCALE: Activities may be completed with or without assistive devices. 6-Mwustzwuxt-fgfedqu completes the activity by him/herself with no assistance from a helper. 5-Set-up or Clean-up Assistance-helper sets up or cleans up; patient completes activity. [place] assists only prior to or following the activity. 4-Supervision or Touching Assistance-helper provides verbal cues and/or touching/steadying and/or contact guard assistance as patient completes activity. Assistance may be provided throughout the activity or intermittently. 3-Partial/Moderate Assistance-helper does LESS THAN HALF the effort. [place] lifts, holds or supports trunk or limbs, but provides less than half the effort. 2-Substantial/Maximal Assistance-helper does MORE THAN HALF the effort. [place] lifts or holds trunk or limbs and provides more than half the effort. 7-Elszxufeg-jvsnfc does ALL the effort. Patient does none of the effort to complete the activity. Or, the assistance of 2 or more helpers is required for the patient to complete the activity. If activity was not attempted, code reason: 7-Patient Refused. 9-Not Applicable-not attempted and the patient did not perform the activity before the current illness, exacerbation or injury. 10-Not Attempted due to Environmental Limitations-(lack of equipment, weather restraints, etc.). 88-Not Attempted due to Medical Conditions or Safety Concerns. Shower/Bathe Self (QC): 4 (CGA in stance when washing bottom, pt completes on shower chair. pt able to wash all parts of body- denies need for washing hair. ) Upper Body Dressing (QC): 5 (s/u) Lower Body Dressing (QC): 3 (Pt requires CGA while doffing socks- able to complete with IND with fair dynamic sitting balance. Pt able to reach feet to don socks, require assist with 1/2 socks to don due to feelings of dizziness.) Toilet Transfer (QC): 4 (Pt transfers to shower bench with CGA and use of grab bars and FWW) Other Treatment Pt completes shower in room. Pt states he doesn't need to wash hair as he did it this morning and that now he needs a drink. Pt is asked how long he's been at hospital, pt states ~3 hours. Pt reoriented to date, time, and place. After ~10 minutes pt again states that he has only been here since this morning and the DO found him on the street and told him he needed his gallbladder taken out. DO enters room; pt continues on shower bench. Pt requests a few minutes to process as he states he hasn't had a major surgery in a long time. Pt encouraged to go to the bed where staff is waiting for pt. Pt sit to stand with use of grab bar and FWW, pt began stepping backwards/ holding onto grab bar; pt requires min A to correct positioning. Pt denies dizziness. Pt returns to bed with CGA. Pt left with staff at end of session to prep for surgery. Education OT Patient Education: Correct positioning, Modified ADL techniques, Purpose of tx/functional activities, Safety issues, Transfer techniques Teaching Recipient: Patient Teaching Methods: Demonstration Response to Teaching: Verbalize Understanding, Return Demonstration OT Short Term Goals Short Term Goals Time Frame: Mar 27, 2019 1=Demonstrate adherence to instructed precautions during ADL tasks. 2=Patient will verbalize/demonstrate understanding of assistive devices/modifications for ADL. 3=Patient will improve strength/tolerance for activity to enable patient to perform ADL's. OT [place] Luggage Goals [facility] Goals Time Frame: Mar 27, 2019 Eating (QC): 6 Oral Hygiene (QC): 6 Shower/Bathe Self (QC): 4 (met) Upper Body Dressing (QC): 5 (met) Lower Body Dressing (QC): 4 On/Off Footwear (QC): 4 Toileting Hygiene (QC): 4 Toilet/Commode Transfer (QC): 4 (met) Additional Goals: 1-Demonstrate ADL Tasks, 2-Verbalize Understanding, 3- ImproveStrength/[place] 1=Demonstrate adherence to instructed precautions during ADL tasks. 2=Patient will verbalize/demonstrate understanding of assistive devices/modifications for ADL. 3=Patient will improve strength/tolerance for activity to enable patient to perform ADL's. OT Education/Plan Problem List/Assessment Assessment: Decreased Activ Tolerance, Decreased UE Strength, Edema, Impaired Cognition, Impaired Funct Balance, Impaired I ADL's, Impaired Self-Care Skills Discharge Recommendations Plan/Recommendations: Continue POC Therapy Discharge Recommendati: 24 Hour Supervision, Post Acute OT Treatment Plan/Plan of Care Treatment,Training & Education: Yes Patient would benefit from OT for education, treatment and training to promote independence in ADL's, mobility, safety and/or upper extremity function for ADL's. Plan of Care: ADL Retraining, Functional Mobility, UE Funct Exercise/Act Treatment Duration: Mar 27, 2019 Frequency: 5 times per week Estimated Hrs Per Day: .25 hour per day Agreement: Yes Rehab Potential: Guarded Time/GCodes Start Time: 09:04 Stop Time: 09:28 Total Time Billed (hr/min): 24 Billed Treatment Time 1, ADL 2 (24) MALDONADO HILL OTR Mar 25, 2019 09:51 POS
[2019-03-25] MEDS ORDERED: morphine INJ 10 MG/ML 1ML (SYR OR VIAL) IVP ONE (10:00)
[2019-03-25] MEDS ORDERED: ONDANSETRON 4 MG/2 ML (SDV) Z0FRAN IVP PRN (10:00)
[2019-03-25] MEDS ORDERED: fentaNYL INJECTION 100 MCG/2 ML AMP IVP ONE (10:00)
[2019-03-25] MEDS ORDERED: MEPERIDINE (DEMEROL) INJ 50 MG/ML IVP ONE (10:00)
[2019-03-25] MEDS ORDERED: morphine INJ 10 MG/ML 1ML (SYR OR VIAL) ONE (10:42)
--- NOTE | 2019-03-25 11:33 | Diagnostic Imaging Report ---
INDICATION: Laparoscopic cholecystectomy. Intraoperative cholangiogram. TOTAL FLUORO TIME: 14 seconds. TOTAL NUMBER OF FLUOROSCOPIC IMAGES OBTAINED: 67. FINDINGS: Multiple intraoperative image intensifier views of the right upper abdominal quadrant were obtained during cholangiogram. Images provided show contrast filling the intra and extrahepatic biliary ductal systems. No distinct intraluminal filling defects are seen. Contrast empties into the small bowel as expected. Please note, interpreting radiologist was not present during the procedure. IMPRESSION: 1. Intraoperative cholangiogram as described above. Dictated by: Dictated on workstation # [id number]
--- NOTE | 2019-03-25 12:49 | Anesthesia-General Post-Op ---
General Patient Condition Mental Status/LOC: Same as Preop Cardiovascular: Satisfactory Nausea/Vomiting: Absent Respiratory: Satisfactory Pain: Controlled Complications: Absent Post Op Complications Complications None Follow Up Care/Instructions Patient Instructions None needed. Anesthesia/Patient Condition Patient Condition Patient is doing well, no complaints, stable vital signs, no apparent adverse anesthesia problems. No complications reported per nursing. RUBEN THOMASON CRNA Mar 25, 2019 12:49 POS
--- NOTE | 2019-03-25 14:08 | Physical Therapy Progress Note ---
Therapy Progress Note No PT today. Patient had a surgical procedure this morning. This afternoon nurse states patient got back to his room about 1 hour ago and is very drowsy/medicated from morphine. Will try back tomorrow. RENEA MOLINA PT Mar 25, 2019 14:08 POS
--- NOTE | 2019-03-25 14:10 | Progress Note ---
Subjective Subjective/Events-last exam Seen at 1305. Had cholecystectomy this am. Is sleeping at time of my exam, recently received morphine. Objective Exam Last Set of Vital Signs Vital Signs Date Time Temp Pulse Resp B/P (MAP) Pulse Ox O2 Delivery O2 Flow Rate FiO2 03/25/19 12:33 36.1 78 18 147/69 (95) 93 Room Air 03/25/19 12:00 0 Capillary Refill : Less Than 3 SecondsLess Than 3 Seconds I&O Intake and Output 03/25/19 00:00 Intake Total 260 ml Output Total 600 ml Balance -340 ml IV Total 260 ml Output Urine Total 600 ml # Voids 2 # Bowel Movements 2 General: Other (sleeping, arouses to voice) Lungs: Clear to Auscultation, Normal Air Movement Heart: Regular Rate, No Murmurs Results/Procedures Lab Laboratory Tests 03/25/19 04:40: White Blood Count 15.3H, Red Blood Count 3.52L, Hemoglobin 10.8L, Hematocrit 34L , Mean Corpuscular Volume 97, Mean Corpuscular Hemoglobin 31, Mean Corpuscular Hemoglobin Concent 32, Red Cell Distribution Width 15.6H, Platelet Count 127L, Mean Platelet Volume 12.3H, Neutrophils (%) (Auto) 79H, Lymphocytes (%) (Auto) 12, Monocytes (%) (Auto) 9, Eosinophils (%) (Auto) 1, Basophils (%) (Auto) 0, Neutrophils # (Auto) 12.1H, Lymphocytes # (Auto) 1.8, Monocytes # (Auto) 1.3H, Eosinophils # (Auto) 0.1, Basophils # (Auto) 0.0, Sodium Level 140, Potassium Level 3.5L, Chloride Level 110H, Carbon Dioxide Level 21, Anion Gap 9, Blood Urea Nitrogen 6L, Creatinine 0.73, Estimat Glomerular Filtration Rate > 60, BUN/Creatinine Ratio 8, Glucose Level 74, Calcium Level 7.8L, Phosphorus Level 2.0L, Magnesium Level 1.7, Total Bilirubin 1.8H, Direct Bilirubin 1.2H, Indirect Bilirubin 0.6, Aspartate Amino Transf (AST/SGOT) 38H, Alanine Aminotransferase (ALT/SGPT) 37, Alkaline Phosphatase 73, Total Protein 5.2L, Albumin 2.3L Microbiology 03/18/19 Blood Culture - Final, Complete No growth 03/19/19 MRSA Screen - Final, Complete MRSA not isolated 03/18/19 Urine Culture - Final, Complete NO GROWTH Assessment/Plan Assessment/Plan (1) Left lower lobe pneumonia Status: Acute Assessment & Plan: Infiltrate vs atelectasis on admit CXR. On Zosyn- 03/25- completed, but will extend for now given cholecystectomy today. Qualifiers: Qualified Codes: J18.1 - Lobar pneumonia, unspecified organism (2) Acute renal failure Status: Resolved Qualifiers: Qualified Codes: N17.9 - Acute kidney failure, unspecified (3) Hypothermia Status: Resolved Qualifiers: Qualified Codes: T68.XXXA - Hypothermia, initial encounter (4) Severe sepsis Status: Resolved (5) Thrombocytopenia Assessment & Plan: Unknown duration, LFTs elevated on admit but improving. (6) Altered mental status Status: Acute Assessment & Plan: Found down before being brought in. CT head okay. Currently alert but oriented only to self and having some apparent hallucinations. Haldol prn. (7) Elevated liver enzymes Assessment & Plan: AST/ALT improving, bilirubin still elevated, see below. (8) Cholelithiasis Assessment & Plan: Abd US with cholelithiasis and wall thickening, Surgery notified. 03/24 HIDA today 03/25- Cholecystectomy today per Dr. Bullock (9) DVT prophylaxis Status: Acute Assessment & Plan: Enoxaparin DARCIE CHOW MD Mar 25, 2019 14:10 POS
--- NOTE | 2019-03-25 15:16 | NUR ---
Pt completed a [place] medicaid application.According his friend, pt seems intermittently confused today. He will need placement upon discharge and will discuss with his physician.
[2019-03-25] MEDS: ENOXAPARIN 40 MG/0.4 ML (LOVENOX) SYR SQ SCH (15:17)
--- NOTE | 2019-03-25 17:14 | Progress Note-Post Operative ---
Post-Operative Progess Note Surgeon (s)/Steamtable Attendant Railroad (s) Surgeon ABDOUL JAVIER DO Steamtable Attendant Railroad: Dr. Aguilar Pre-Operative Diagnosis cholelithiasis, cholecystitis Post-Operative Diagnosis same Procedure & Operative Findings Date of Procedure 03/25/19 Procedure Performed/Findings lap tor c ioc Anesthesia Type gen Estimated Blood Loss Estimated blood loss (mL): min Specimens/Packing Specimens Removed gallbladder ABDOUL JAVIER DO Mar 25, 2019 17:14 POS
--- NOTE | 2019-03-26 00:23 | OPERATIVE REPORT ---
DATE OF SERVICE: 03/25/2019 PREOPERATIVE DIAGNOSES: Cholelithiasis, cholecystitis. POSTOPERATIVE DIAGNOSES: Cholelithiasis, cholecystitis. PROCEDURE: Laparoscopic cholecystectomy with intraoperative cholangiogram. SURGEON: Kulwinder Bullock DO MONUMENT MASON: Dr. Aguilar, assisted in retraction, dissection and closure. ANESTHESIA: General. ESTIMATED BLOOD LOSS: Minimal. COMPLICATIONS: None. INDICATIONS: The patient is a 59-year-old male who was admitted to the hospital. He was hypothermic and septic. The patient was later found to have cholelithiasis with gallbladder thickening. He had HIDA demonstrating obstruction of the cystic duct consistent with cholecystitis. The patient's power of managing attorney understands risks and benefits of procedure and wished to proceed with the procedure. Consent was signed in the chart. DESCRIPTION OF PROCEDURE: The patient was taken to the operating suite, was prepped and draped in sterile fashion. Surgical pause was performed. Local anesthetic was infiltrated just above the umbilicus. An 11 blade scalpel was used to make a small skin incision and cautery used to dissect down to the fascia, which was then scored, grasped and elevated. A balloon trocar was then inserted into the abdomen and pneumoperitoneum was achieved. Under direct visualization of the laparoscope, a 5 mm trocar was placed in the subxiphoid region and two 5 mm trocars were placed in the right upper quadrant. Gallbladder was mildly distended and inflamed with surrounding pericholecystic fluid. There is also very minimal amount of blood-tinged fluid within the abdomen as well. Gallbladder was grasped and elevated. The cystic duct and cystic artery were then dissected out. Clips were placed on the proximal and distal portion of the cystic artery and the distal portion of the cystic duct and the duct was then partially transected. Arrow catheter was inserted into the duct and cholangiogram was performed. There were no filling defects. Contrast made its way into the duodenum without difficulty. The Arrow catheter was then removed. Clips were placed in the proximal portion of the cystic duct and the duct and artery were then transected. Hook cautery used to dissect the gallbladder from the gallbladder fossa achieving hemostasis. Once removed, it was placed in an Endobag and removed through the 12 mm trocar site. The abdomen was suctioned with copious amounts of irrigation. Hemostasis was achieved. The abdomen was then desufflated. The trocars were removed. An 0 Vicryl was then placed in figure eight fashion closing 12 mm fascial defect. The skin was then closed using 4-0 Monocryl in a subcuticular fashion and the wound was then washed and dried and Skin Affix was placed over the incisions. The patient tolerated procedure well without any complications. He was taken to recovery room in stable condition. Job ID: [id number] DocumentID: [id number] Dictated Date: 03/25/2019 21:03:01 Collet Gluer Date: 03/25/2019 23:52:07 Dictated By: DO DONNA POLK
[2019-03-26 04:55] VITALS: BP 158/74
[2019-03-26 05:36] LABS: BASOPHILS % (AUTO) 0 % (0-10); EOSINOPHILS % (AUTO) 0 % (0-10); HEMATOCRIT 38 % (40-54); HEMOGLOBIN 11.7 G/DL (13.3-17.7); LYMPHOCYTES # (AUTO) 1.9 X 10^3 (1.0-4.0); LYMPHOCYTES % (AUTO) 10 % (12-44); MEAN CORPUSCULAR HEMOGLOBIN 31 PG (25-34); MEAN CORPUSCULAR HGB CONC 31 G/DL (32-36); MEAN CORPUSCULAR VOLUME 98 FL (80-99); MONOCYTES # (AUTO) 1.6 X 10^3 (0.0-1.0); MONOCYTES % (AUTO) 8 % (0-12); NEUTROPHILS # (AUTO) 15.7 X 10^3 (1.8-7.8); NEUTROPHILS % (AUTO) 82 % (42-75); PLATELET COUNT 165 10^3/uL (130-400); WHITE BLOOD COUNT 19.2 10^3/uL (4.3-11.0)
[2019-03-26 05:52] LABS: BUN/CREATININE RATIO 9; CALCIUM 8.1 MG/DL (8.5-10.1); CARBON DIOXIDE 21 MMOL/L (21-32); CHLORIDE 110 MMOL/L (98-107); CREATININE SERUM 0.78 MG/DL (0.60-1.30); GFR ESTIMATED > 60; GLUCOSE 87 MG/DL (70-105); MAGNESIUM 1.6 MG/DL (1.6-2.4); PHOSPHORUS 2.2 MG/DL (2.3-4.7); SODIUM 143 MMOL/L (135-145)
[2019-03-26] MEDS: KCL 20 MEQ TAB (K-DUR) PO SCH (06:20)
[2019-03-26] MEDS: PIPERACILLIN/TAZO 4.5 GM/NS 100 ML IV SCH ×6 (06:20→23:33)
[2019-03-26] MEDS: CHLORHEXIDINE 0.12% SOLN 15 ML (PERIDEX) UDC PO SCH ×3 (06:20→20:31)
[2019-03-26] MEDS: MAGNESIUM 1 GM/100 ML IVPB 100 ML IV SCH (06:21)
--- NOTE | 2019-03-26 07:03 | Anesthesia-General Post-Op ---
General Patient Condition Mental Status/LOC: Same as Preop Cardiovascular: Satisfactory Nausea/Vomiting: Absent Respiratory: Satisfactory Pain: Controlled Complications: Absent Post Op Complications Complications None Follow Up Care/Instructions Patient Instructions None needed. Anesthesia/Patient Condition Patient Condition Patient is doing well, no complaints, stable vital signs, no apparent adverse anesthesia problems. No complications reported per nursing. JUDAH FLOREZ CRNA Mar 26, 2019 07:03 POS
[2019-03-26 07:23] VITALS: BP 142/72
[2019-03-26] MEDS ORDERED: SODIUM PHOSPHATE INJ 15 MM in D5W 100 ML IVPB 100 ML IV ONE (08:15)
--- NOTE | 2019-03-26 10:53 | Physical Therapy Daily Note ---
PT Daily Note-Current Subjective Patient agrees to PT. Patient reports no pain. Friend is present in room and reports he is somewhat more lucid today. Pain Numeric Pain Scale: 0-No Pain Location: No Pain Reported Mental Status Patient Orientation: Confused Attachments: IV Transfers SCALE: Activities may be completed with or without assistive devices. 2-Hunltcoytq-gzuekkf completes the activity by him/herself with no assistance from a helper. 5-Set-up or Clean-up Assistance-helper sets up or cleans up; patient completes activity. [place] assists only prior to or following the activity. 4-Supervision or Touching Assistance-helper provides verbal cues and/or touching/steadying and/or contact guard assistance as patient completes activity. Assistance may be provided throughout the activity or intermittently. 3-Partial/Moderate Assistance-helper does LESS THAN HALF the effort. [place] lifts, holds or supports trunk or limbs, but provides less than half the effort. 2-Substantial/Maximal Assistance-helper does MORE THAN HALF the effort. [place] lifts or holds trunk or limbs and provides more than half the effort. 4-Pjcgnetgp-loxuqb does ALL the effort. Patient does none of the effort to com plete the activity. Or, the assistance of 2 or more helpers is required for the patient to complete the activity. If activity was not attempted, code reason: 7-Patient Refused. 9-Not Applicable-not attempted and the patient did not perform the activity before the current illness, exacerbation or injury. 10-Not Attempted due to Environmental Limitations-(lack of equipment, weather restraints, etc.). 88-Not Attempted due to Medical Conditions or Safety Concerns. Roll Left to Right (QC): 6 Sit to Lying (QC): 6 Sit to Stand (QC): 4 Gait Training Does the Patient Walk?: Yes Gait: 3 Distance: 150' Walk 10 feet (QC): 3 Walk 50 ft with 2 Turns(QC): 3 Gait Assistive Device: FWW Ataxic and unsteady, required frequent cues to remain in walker, especially with turns; less LOB than previously Exercises Supine Ex: Heel Slides Supine Reps: 10 Seated Therapy Exercises: Ankle pumps, Hip flexion Seated Reps: 10 Assessment Patient able to perform bed mobility independently and more willingly than previous treatments. Initial difficulty with standing from EOB, but with incr eased bed height and encouragement, able to stand with minimal assistance. Patient ambulated 150' mod assist with FWW, continuing to demonstrate an unsteady, ataxic gait but with improved balance. Required frequent cues to remain in walker during ambulation, especially during turns. Patient returned to bed at conclusion of treatment with HOB elevated. PT Chcf Goals Chcf Goals PT Stained Glass Glazier Helper Goals Time Frame: Apr 03, 2019 Sit to Lying (QC): 6 Lying-Sitting on Side/Bed(QC): 6 Sit to Stand (QC): 6 Roll Left to Right (QC): 6 Chair/Evx-hv-Arpbh Xfer(QC): 6 Car Transfer (QC): 6 Does the Patient Walk: Yes Distance: 200' Walk 10 feet (QC): 6 Walk 10ft-Uneven Surface(QC): 6 Walk 50ft with 2 Turns (QC): 6 Walk 150 ft (QC): 6 # of Steps: 3 1 Step (curb) (QC): 6 4 Steps (QC): 6 PT Plan Treatment/Plan Treatment Plan: Continue Plan of Care Treatment Plan: Bed Mobility, Education, Functional Activity Malia, Functional Strength, Gait, Safety, Therapeutic Exercise, Transfers Treatment Duration: Apr 03, 2019 Frequency: 6 times per week Estimated Hrs Per Day: .25 hour per day Patient and/or Family Agrees t: Yes Time/GCodes Time In: 1027 Time Out: 1044 Total Billed Treatment Time: 17 Total Billed Treatment 1 visit GT 17min GUADALUPE PRADO PT Mar 26, 2019 10:53 POS
[2019-03-26] MEDS: NS IV 1000 ML 1,000 ML IV SCH ×3 (11:21→20:31)
--- NOTE | 2019-03-26 11:22 | Occupational Ther Daily Note ---
OT Current Status-Daily Note Subjective Pt stated he would like a rum and coke. Pt knew couldn't have rum, still wanted coke. Nursing to check on diet. Pt agreed to therapy. No c/o pain. Mental Status/Objective Patient Orientation: Person ADL-Treatment Therapy Code Descriptions/Definitions Functional [place] Measure: 0=Not Assessed/NA 4=Minimal Assistance 1=Total Assistance 5=Supervision or Setup 2=Maximal Assistance 6=Modified [place] 3=Moderate Assistance 7=Complete IndependenceSCALE: Activities may be completed with or without assistive devices. 7-Mcraeqntye-qeucemn completes the activity by him/herself with no assistance from a helper. 5-Set-up or Clean-up Assistance-helper sets up or cleans up; patient completes activity. [place] assists only prior to or following the activity. 4-Supervision or Touching Assistance-helper provides verbal cues and/or touching/steadying and/or contact guard assistance as patient completes activity. Assistance may be provided throughout the activity or intermittently. 3-Partial/Moderate Assistance-helper does LESS THAN HALF the effort. [place] lifts, holds or supports trunk or limbs, but provides less than half the effort. 2-Substantial/Maximal Assistance-helper does MORE THAN HALF the effort. [place] lifts or holds trunk or limbs and provides more than half the effort. 2-Vdtmyukji-kgpsah does ALL the effort. Patient does none of the effort to complete the activity. Or, the assistance of 2 or more helpers is required for the patient to complete the activity. If activity was not attempted, code reason: 7-Patient Refused. 9-Not Applicable-not attempted and the patient did not perform the activity before the current illness, exacerbation or injury. 10-Not Attempted due to Environmental Limitations-(lack of equipment, weather restraints, etc.). 88-Not Attempted due to Medical Conditions or Safety Concerns. Other Treatment Pt. completed 10 rounds of 5 theraband exercises with minimal cues and recovery breaks for initial exercises then required longer breaks at end of session. Pt stated his left arm is stronger. Pt. had labored breathing starting on exercise 4 and continued through exercise 5. Skilled instruction required for correct technique and position. After therapy pt laying in bed, call light and phone in reach with nrsg in room. OT Short Term Goals Short Term Goals Time Frame: Mar 27, 2019 1=Demonstrate adherence to instructed precautions during ADL tasks. 2=Patient will verbalize/demonstrate understanding of assistive devices/modifications for ADL. 3=Patient will improve strength/tolerance for activity to enable patient to perform ADL's. OT Residential Goals Forestry And Wildlife Manager Goals Time Frame: Mar 27, 2019 Eating (QC): 6 Oral Hygiene (QC): 6 Shower/Bathe Self (QC): 4 (met) Upper Body Dressing (QC): 5 (met) Lower Body Dressing (QC): 4 On/Off Footwear (QC): 4 Toileting Hygiene (QC): 4 Toilet/Commode Transfer (QC): 4 (met) Additional Goals: 1-Demonstrate ADL Tasks, 2-Verbalize Understanding, 3- ImproveStrength/Malia 1=Demonstrate adherence to instructed precautions during ADL tasks. 2=Patient will verbalize/demonstrate understanding of assistive devices/modifications for ADL. 3=Patient will improve strength/tolerance for activity to enable patient to perform ADL's. OT Education/Plan Problem List/Assessment Assessment: Decreased Activ Tolerance, Decreased UE Strength Discharge Recommendations Plan/Recommendations: Continue POC Treatment Plan/Plan of Care Patient would benefit from OT for education, treatment and training to promote independence in ADL's, mobility, safety and/or upper extremity function for ADL's. Plan of Care: ADL Retraining, Functional Mobility, UE Funct Exercise/Act Treatment Duration: Mar 27, 2019 Frequency: 5 times per week Estimated Hrs Per Day: .25 hour per day Agreement: Yes Rehab Potential: Guarded Time/GCodes Start Time: 11:06 Stop Time: 11:19 Total Time Billed (hr/min): 13 Billed Treatment Time 1 visit, 1 EX LEVI GARCIA Mar 26, 2019 11:22 POS
[2019-03-26 11:32] VITALS: BP 128/65
--- NOTE | 2019-03-26 15:17 | NUR ---
Met with pt to discuss continued care plans. pt oriented to here and now and could tell who was president, date,month and year. He couldn't remember having surgery yesterday and can't remember that his is . He talks about having quite a libertarian in his room last night but unable to describe specific events. His DPOA trying to assist in determining eligibility for social security disability and finding placement. Contacting local nursing homes for possible acceptance of continued care.
--- NOTE | 2019-03-26 15:35 | Progress Note - Surgery ---
ILANA KONG,MED STUDENT 03/26/19 1535: Subjective Date Seen by a Provider: Mar 26, 2019 Time Seen by a Provider: 07:15 Subjective/Events-last exam Patient seen and examined. He reports mild tenderness around incision, but denies other complaints. He has not been passing flatus yet and has not had a bm. On clear liquid diet currently and has been tolerating well. Denies fevers, chills, nausea, vomiting, chest pain. Objective Exam Vital Signs Date Time Temp Pulse Resp B/P (MAP) Pulse Ox O2 Delivery O2 Flow Rate FiO2 03/26/19 11:32 36.7 74 20 128/65 (86) 97 Room Air 03/26/19 08:04 Room Air 03/26/19 07:23 36.3 63 18 142/72 (95) 96 Room Air 03/26/19 04:55 36.4 59 18 158/74 (102) 98 Room Air 03/25/19 23:38 36.4 60 18 125/71 (89) 98 Room Air 03/25/19 21:55 Room Air 03/25/19 19:49 36.4 66 20 109/66 (80) 94 Room Air 03/25/19 19:00 Room Air 03/25/19 15:50 36.6 62 16 125/70 (88) 94 Room Air I & O 03/26/19 07:00 Intake Total 222 ml Output Total 900 ml Balance -678 ml Capillary Refill : Less Than 3 SecondsLess Than 3 Seconds General Appearance: No Apparent Distress, Chronically ill, Cachetic HEENT: PERRL/EOMI, Normal ENT Inspection; No Scleral Icterus (L), No Scleral Icterus (R) Neck: Full Range of Motion, Normal Inspection Respiratory: Chest Non Tender, No Accessory Muscle Use, No Respiratory Distress Cardiovascular: Regular Rate, Rhythm, Normal Peripheral Pulses Peripheral Pulses: 2+ Radial Pulses (R), 2+ Radial Pulses (L) Gastrointestinal: non tender, soft; No distended, No guarding; tenderness (incisional) Extremity: Non Tender, No Calf Tenderness, No Pedal Edema Neurologic/Psychiatric: Alert; 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, No Facial Droop, No Motor Weakness Skin: Normal Color, Warm/Dry Results Lab Laboratory Tests 03/26/19 05:25: White Blood Count 19.2H, Red Blood Count 3.82L, Hemoglobin 11.7L, Hematocrit 38L , Mean Corpuscular Volume 98, Mean Corpuscular Hemoglobin 31, Mean Corpuscular Hemoglobin Concent 31L, Red Cell Distribution Width 16.0H, Platelet Count 165, Mean Platelet Volume 11.0H, Neutrophils (%) (Auto) 82H, Lymphocytes (%) (Auto) 10L, Monocytes (%) (Auto) 8, Eosinophils (%) (Auto) 0, Basophils (%) (Auto) 0, Neutrophils # (Auto) 15.7H, Lymphocytes # (Auto) 1.9, Monocytes # (Auto) 1.6H, Eosinophils # (Auto) 0.0, Basophils # (Auto) 0.0, Sodium Level 143, Potassium Level 4.0, Chloride Level 110H, Carbon Dioxide Level 21, Anion Gap 12, Blood Urea Nitrogen 7, Creatinine 0.78, Estimat Glomerular Filtration Rate > 60, BUN/Creatinine Ratio 9, Glucose Level 87, Calcium Level 8.1L, Phosphorus Level 2.2L, Magnesium Level 1.6 Microbiology 03/18/19 Blood Culture - Final, Complete No growth 03/24/19 MRSA Screen - Final, Complete MRSA not isolated 03/18/19 Urine Culture - Final, Complete NO GROWTH Assessment/Plan Assessment/Plan Assessment/Plan S/p laparoscopic cholecystectomy Pedunculated back mass Altered Mental status Continue Zosyn Continue DVT prophylaxis Clear liquid diet No other general surgery indications at this time, continue medical management ABDOUL BULLOCK DO 03/26/192058: Subjective Subjective/Events-last exam Pain controlled. Confused. No concerns at this time. Is confused. Objective Exam General Appearance: No Apparent Distress, Chronically ill Neck: Full Range of Motion, Normal Inspection Respiratory: Chest Non Tender, No Accessory Muscle Use, No Respiratory Distress Cardiovascular: Regular Rate, Rhythm Gastrointestinal: soft, tenderness (incisional c/d/i) Extremity: Non Tender, No Calf Tenderness Neurologic/Psychiatric: Alert; 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 Skin: Normal Color, Warm/Dry Lymphatic: No Adenopathy Assessment/Plan Assessment/Plan Assessment/Plan S/p laparoscopic cholecystectomy Pedunculated back mass Altered Mental status patient with confusion tolerating liquids advance as tolerates pain control okay to dc when medically stable from surgical standpoint. Supervisory-Addendum Brief Verification & Attestation Participated in pt care: history, MDM, physical Personally performed: exam, history, MDM, supervision of care Care discussed with: Medical Student Procedures: n/a Results interpretation: Verified all documentation Verification and Attestation of Medical Student E/M Service A medical student performed and documented this service in my presence. I reviewed and verified all information documented by the medical student and made modifications to such information, when appropriate. I personally performed the physical exam and medical decision making. Abdoul Bullock, Mar 26, 2019,20:59 ILANA KONG,MED STUDENT Mar 26, 2019 15:35 ABDOUL ADAM DO Mar 26, 2019 20:59 POS
[2019-03-26] MEDS: ENOXAPARIN 40 MG/0.4 ML (LOVENOX) SYR SQ SCH (16:10)
[2019-03-26 16:59] VITALS: BP 121/64
--- NOTE | 2019-03-26 17:33 | NUR ---
PT HAS BEEN TALKING TO SELF AND TO PEOPLE THAT ONLY HE CAN SEE -- THROUGHOUT THE SHIFT -- HE YELLS OUT AND ATTEMPTS TO REORIENT HIM ARE UNSUCCESSFUL -- HE VOICES HE WANTS TO GO HOME -- HAVE ATTEMPTED TO REORIENT HIM OF HIS DX AND THAT HIS FRIENDS WILL BE IN TOMORROW THE VISIT WITH HIM --
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
[2019-03-26 20:00] VITALS: BP 136/76
[2019-03-26] MEDS: LORazepam 0.5 MG (ATIVAN) TABLET PO PRN (20:31)
[2019-03-26 23:30] VITALS: BP 133/84
[2019-03-26] MEDS: HALOPERIDOL 5 MG/ML (HALDOL) AMP IM PRN (23:49)
[2019-03-27 03:49] LABS: BASOPHILS % (AUTO) 0 % (0-10); EOSINOPHILS # (AUTO) 0.1 10^3/uL (0.0-0.3); EOSINOPHILS % (AUTO) 0 % (0-10); HEMATOCRIT 36 % (40-54); HEMOGLOBIN 11.7 G/DL (13.3-17.7); LYMPHOCYTES # (AUTO) 1.5 X 10^3 (1.0-4.0); LYMPHOCYTES % (AUTO) 11 % (12-44); MEAN CORPUSCULAR HEMOGLOBIN 31 PG (25-34); MEAN CORPUSCULAR HGB CONC 32 G/DL (32-36); MEAN CORPUSCULAR VOLUME 97 FL (80-99); MEAN PLATELET VOLUME 11.1 FL (7.4-10.4); MONOCYTES # (AUTO) 1.5 X 10^3 (0.0-1.0); MONOCYTES % (AUTO) 11 % (0-12); NEUTROPHILS # (AUTO) 10.8 X 10^3 (1.8-7.8); NEUTROPHILS % (AUTO) 78 % (42-75); PLATELET COUNT 176 10^3/uL (130-400); RED CELL DISTRIBUTION WIDTH 15.9 % (10.0-14.5); WHITE BLOOD COUNT 13.9 10^3/uL (4.3-11.0)
[2019-03-27 04:00] VITALS: BP 143/74
[2019-03-27 04:08] LABS: ALANINE AMINOTRANSFERASE 55 U/L (0-55); ALBUMIN 2.5 GM/DL (3.2-4.5); ALKALINE PHOSPHATASE 80 U/L (40-136); BILIRUBIN,DIRECT 0.9 MG/DL (0.0-0.3); BILIRUBIN,INDIRECT 0.4 MG/DL; BILIRUBIN,TOTAL 1.3 MG/DL (0.1-1.0); BUN/CREATININE RATIO 8; CALCIUM 7.8 MG/DL (8.5-10.1); CARBON DIOXIDE 23 MMOL/L (21-32); CHLORIDE 108 MMOL/L (98-107); CREATININE SERUM 0.76 MG/DL (0.60-1.30); GFR ESTIMATED > 60; GLUCOSE 95 MG/DL (70-105); MAGNESIUM 1.4 MG/DL (1.6-2.4); PHOSPHORUS 1.6 MG/DL (2.3-4.7); POTASSIUM 3.2 MMOL/L (3.6-5.0); SODIUM 142 MMOL/L (135-145); TOTAL PROTEIN 5.5 GM/DL (6.4-8.2)
[2019-03-27] MEDS: POTASSIUM CL 10MEQ/50ML IVPB 50 ML IV SCH (04:35)
[2019-03-27] MEDS: MAGNESIUM 1 GM/100 ML IVPB 100 ML IV SCH ×3 (04:36→06:02)
[2019-03-27] MEDS: KCL 20 MEQ TAB (K-DUR) PO SCH (04:37)
[2019-03-27] MEDS ORDERED: POTASSIUM PHOSPHATE INJ 30 MM in NS (IVPB) 250 ML IV ONE (05:00)
[2019-03-27] MEDS ORDERED: KCL 20 MEQ TAB (K-DUR) PO ONE ×2 (06:00→08:00)
[2019-03-27] MEDS: CHLORHEXIDINE 0.12% SOLN 15 ML (PERIDEX) UDC PO SCH ×3 (06:01→21:28)
[2019-03-27] MEDS: PIPERACILLIN/TAZO 4.5 GM/NS 100 ML IV SCH ×4 (06:03→15:17)
[2019-03-27] MEDS ORDERED: POTASSIUM PHOSPHATE INJ 30 MM in NS IV 500 ML 500 ML IV ONE (07:00)
[2019-03-27 08:00] VITALS: BP 140/71
--- NOTE | 2019-03-27 11:12 | Physical Therapy Daily Note ---
PT Daily Note-Current Subjective Patient alert, however, continues to hallucinate by seeing people that aren't there. Pain Numeric Pain Scale: 0-No Pain Location: No Pain Reported Mental Status Patient Orientation: Confused Attachments: IV Transfers SCALE: Activities may be completed with or without assistive devices. 0-Iqekzcpzjn-pvamgrb completes the activity by him/herself with no assistance from a helper. 5-Set-up or Clean-up Assistance-helper sets up or cleans up; patient completes activity. [place] assists only prior to or following the activity. 4-Supervision or Touching Assistance-helper provides verbal cues and/or touching/steadying and/or contact guard assistance as patient completes activity. Assistance may be provided throughout the activity or intermittently. 3-Partial/Moderate Assistance-helper does LESS THAN HALF the effort. [place] lifts, holds or supports trunk or limbs, but provides less than half the effort. 2-Substantial/Maximal Assistance-helper does MORE THAN HALF the effort. [place] lifts or holds trunk or limbs and provides more than half the effort. 6-Vckgnccby-ofplzz does ALL the effort. Patient does none of the effort to complete the activity. Or, the assistance of 2 or more helpers is required for the patient to complete the activity. If activity was not attempted, code reason: 7-Patient Refused. 9-Not Applicable-not attempted and the patient did not perform the activity before the current illness, exacerbation or injury. 10-Not Attempted due to Environmental Limitations-(lack of equipment, weather restraints, etc.). 88-Not Attempted due to Medical Conditions or Safety Concerns. Roll Left to Right (QC): 6 Sit to Lying (QC): 6 Sit to Stand (QC): 5 Chair/Lvp-li-Rhzor Xfer(QC): 4 Bed to/from Chair: 4 Gait Training Does the Patient Walk?: Yes Distance: 300' Walk 10 feet (QC): 4 Walk 50 ft with 2 Turns(QC): 4 Walk 150 ft (QC): 4 Gait Assistive Device: FWW improved gait sequence and body position/continues to require redirection to remain on task. Assessment Patient required assistance to use urinal during treatment session. Patient tolerated treatment well and is up in recliner with chair alarm activated and PURCHASE ORDER CHECKER notified. PT Animal Physiology Teacher Goals Animal Physiology Teacher Goals PT Animal Physiology Teacher Goals Time Frame: Apr 03, 2019 Sit to Lying (QC): 6 Lying-Sitting on Side/Bed(QC): 6 Sit to Stand (QC): 6 Roll Left to Right (QC): 6 Chair/Wtl-su-Cnlxy Xfer(QC): 6 Car Transfer (QC): 6 Does the Patient Walk: Yes Distance: 200' Walk 10 feet (QC): 6 Walk 10ft-Uneven Surface(QC): 6 Walk 50ft with 2 Turns (QC): 6 Walk 150 ft (QC): 6 # of Steps: 3 1 Step (curb) (QC): 6 4 Steps (QC): 6 PT Plan Treatment/Plan Treatment Plan: Continue Plan of Care Treatment Plan: Bed Mobility, Education, Functional Activity Malia, Functional Strength, Gait, Safety, Therapeutic Exercise, Transfers Treatment Duration: Apr 03, 2019 Frequency: 6 times per week Estimated Hrs Per Day: .25 hour per day Patient and/or Family Agrees t: Yes Time/GCodes Time In: 1025 Time Out: 1035 Total Billed Treatment Time: 10 Total Billed Treatment 1 visit GT 10 min GUADALUPE PRADO PT Mar 27, 2019 11:12 POS
[2019-03-27] MEDS: NS IV 1000 ML 1,000 ML IV SCH ×2 (11:25→20:15)
--- NOTE | 2019-03-27 11:50 | Progress Note ---
Subjective Subjective/Events-last exam Afebrile. Having a lot of hallucinations and confusion overnight, loud but not aggressive. Objective Exam Last Set of Vital Signs Vital Signs Date Time Temp Pulse Resp B/P (MAP) Pulse Ox O2 Delivery O2 Flow Rate FiO2 03/27/19 08:00 36.9 80 18 140/71 (94) 95 Room Air 03/25/19 12:00 0 Capillary Refill : Less Than 3 SecondsLess Than 3 Seconds I&O Intake and Output 03/27/19 00:00 Intake Total 3047 ml Output Total 800 ml Balance 2247 ml Intake Oral 822 ml IV Total 2225 ml Output Urine Total 800 ml # Voids 2 # Bowel Movements 1 General: Alert, No Acute Distress Lungs: Clear to Auscultation, Normal Air Movement Heart: Regular Rate, No Murmurs Abdomen: Normal Bowel Sounds Neuro: Other (oriented only to self) Results/Procedures Lab Laboratory Tests 03/27/19 03:40: White Blood Count 13.9H, Red Blood Count 3.76L, Hemoglobin 11.7L, Hematocrit 36L , Mean Corpuscular Volume 97, Mean Corpuscular Hemoglobin 31, Mean Corpuscular Hemoglobin Concent 32, Red Cell Distribution Width 15.9H, Platelet Count 176, Mean Platelet Volume 11.1H, Neutrophils (%) (Auto) 78H, Lymphocytes (%) (Auto) 11L, Monocytes (%) (Auto) 11, Eosinophils (%) (Auto) 0, Basophils (%) (Auto) 0, Neutrophils # (Auto) 10.8H, Lymphocytes # (Auto) 1.5, Monocytes # (Auto) 1.5H, Eosinophils # (Auto) 0.1, Basophils # (Auto) 0.0, Sodium Level 142, Potassium Level 3.2L, Chloride Level 108H, Carbon Dioxide Level 23, Anion Gap 11, Blood Urea Nitrogen 6L, Creatinine 0.76, Estimat Glomerular Filtration Rate > 60, BUN/Creatinine Ratio 8, Glucose Level 95, Calcium Level 7.8L, Phosphorus Level 1.6L, Magnesium Level 1.4L, Total Bilirubin 1.3H, Direct Bilirubin 0.9H, Indirect Bilirubin 0.4, Aspartate Amino Transf (AST/SGOT) 42H, Alanine Aminotransferase (ALT/SGPT) 55, Alkaline Phosphatase 80, Total Protein 5.5L, Albumin 2.5L Microbiology 03/18/19 Blood Culture - Final, Complete No growth 03/24/19 MRSA Screen - Final, Complete MRSA not isolated 03/18/19 Urine Culture - Final, Complete NO GROWTH Assessment/Plan Assessment/Plan (1) Left lower lobe pneumonia Status: Acute Assessment & Plan: Infiltrate vs atelectasis on admit CXR. On Zosyn- 03/25- completed, but will extend for now given cholecystectomy 03/25. 03/27 Will d/c antibiotics Qualifiers: Qualified Codes: J18.1 - Lobar pneumonia, unspecified organism (2) Acute renal failure Status: Resolved Qualifiers: Qualified Codes: N17.9 - Acute kidney failure, unspecified (3) Hypothermia Status: Resolved Qualifiers: Qualified Codes: T68.XXXA - Hypothermia, initial encounter (4) Severe sepsis Status: Resolved (5) Thrombocytopenia Status: Resolved Assessment & Plan: Unknown duration, LFTs elevated on admit but improving. (6) Altered mental status Status: Acute Assessment & Plan: Found down before being brought in. CT head okay. Currently alert but oriented only to self and having some apparent hallucinations. Haldol prn. (7) Elevated liver enzymes Assessment & Plan: AST/ALT improving, bilirubin remained elevated, see below. (8) Cholelithiasis Assessment & Plan: Abd US with cholelithiasis and wall thickening, Surgery notified. 03/24 HIDA today 03/25- Cholecystectomy today per Dr. Bullock (9) DVT prophylaxis Status: Acute Assessment & Plan: Enoxaparin DARCIE CHOW MD Mar 27, 2019 11:50 POS
--- NOTE | 2019-03-27 11:58 | Occupational Ther Daily Note ---
OT Current Status-Daily Note Subjective Pt sitting in chair, agrees to therapy. Pt confused, but pleasant. Pt denies pain. ADL-Treatment Pt completed grooming tasks while seated in chair. Pt washed face with SBA and increased time. Pt brushed hair. Requires verbal cues for sequencing and task completion. Pt able to brush right side, but requires assist to thoroughly complete task on left. Pt able to reposition self in chair. Sitting with needs met and chair alarm in place after session. Therapy Code Descriptions/Definitions Functional [place] Measure: 0=Not Assessed/NA 4=Minimal Assistance 1=Total Assistance 5=Supervision or Setup 2=Maximal Assistance 6=Modified [place] 3=Moderate Assistance 7=Complete IndependenceSCALE: Activities may be completed with or without assistive devices. 5-Mtsnlhqmxm-ljdzitz completes the activity by him/herself with no assistance from a helper. 5-Set-up or Clean-up Assistance-helper sets up or cleans up; patient completes activity. [place] assists only prior to or following the activity. 4-Supervision or Touching Assistance-helper provides verbal cues and/or touch ing/steadying and/or contact guard assistance as patient completes activity. Assistance may be provided throughout the activity or intermittently. 3-Partial/Moderate Assistance-helper does LESS THAN HALF the effort. [place] lifts, holds or supports trunk or limbs, but provides less than half the effort. 2-Substantial/Maximal Assistance-helper does MORE THAN HALF the effort. [place] lifts or holds trunk or limbs and provides more than half the effort. 9-Arwkkjwql-wxgfrz does ALL the effort. Patient does none of the effort to complete the activity. Or, the assistance of 2 or more helpers is required for the patient to complete the activity. If activity was not attempted, code reason: 7-Patient Refused. 9-Not Applicable-not attempted and the patient did not perform the activity before the current illness, exacerbation or injury. 10-Not Attempted due to Environmental Limitations-(lack of equipment, weather restraints, etc.). 88-Not Attempted due to Medical Conditions or Safety Concerns. OT Short Term Goals Short Term Goals Time Frame: Mar 27, 2019 1=Demonstrate adherence to instructed precautions during ADL tasks. 2=Patient will verbalize/demonstrate understanding of assistive devices/modifications for ADL. 3=Patient will improve strength/tolerance for activity to enable patient to perform ADL's. OT Fdc Goals Manager Performance Goals Time Frame: Mar 27, 2019 Eating (QC): 6 Oral Hygiene (QC): 6 Shower/Bathe Self (QC): 4 (met) Upper Body Dressing (QC): 5 (met) Lower Body Dressing (QC): 4 On/Off Footwear (QC): 4 Toileting Hygiene (QC): 4 Toilet/Commode Transfer (QC): 4 (met) Additional Goals: 1-Demonstrate ADL Tasks, 2-Verbalize Understanding, 3- ImproveStrength/[place] 1=Demonstrate adherence to instructed precautions during ADL tasks. 2=Patient will verbalize/demonstrate understanding of assistive devices/modifications for ADL. 3=Patient will improve strength/tolerance for activity to enable patient to perform ADL's. OT Education/Plan Discharge Recommendations Plan/Recommendations: Continue POC Treatment Plan/Plan of Care Patient would benefit from OT for education, treatment and training to promote independence in ADL's, mobility, safety and/or upper extremity function for ADL's. Plan of Care: ADL Retraining, Functional Mobility, UE Funct Exercise/Act Treatment Duration: Mar 27, 2019 Frequency: 5 times per week Estimated Hrs Per Day: .25 hour per day Agreement: Yes Rehab Potential: Guarded Time/GCodes Start Time: 11:45 Stop Time: 11:55 Total Time Billed (hr/min): 10 Billed Treatment Time 1 visit, ADL(10minutes) RODOLFO ALATORRE OT Mar 27, 2019 11:58 POS
[2019-03-27 12:00] VITALS: BP 143/85
--- NOTE | 2019-03-27 15:12 | Progress Note - Surgery ---
ILANA KONG,MED STUDENT 03/27/19 1512: Subjective Date Seen by a Provider: Mar 27, 2019 Time Seen by a Provider: 07:10 Subjective/Events-last exam Patient seen and examined. He reports mild pain only with movement or palpation. He had a bm yesterday. He is currently on a regular diet and tolerating well without nausea. Denies fevers, chills, chest pain, SOB. Objective Exam Vital Signs Date Time Temp Pulse Resp B/P (MAP) Pulse Ox O2 Delivery O2 Flow Rate FiO2 03/27/19 12:00 36.4 74 20 143/85 (104) 100 Room Air 03/27/19 08:00 36.9 80 18 140/71 (94) 95 Room Air 03/27/19 08:00 Room Air 03/27/19 04:00 36.2 67 18 143/74 (97) 95 Room Air 03/26/19 23:30 36.8 85 18 133/84 (100) 97 Room Air 03/26/19 20:45 Room Air 03/26/19 20:00 74 18 136/76 (96) 97 Room Air 03/26/19 16:59 36.4 72 16 121/64 (83) 95 Room Air I & O 03/27/19 07:00 Intake Total 3345 ml Output Total 750 ml Balance 2595 ml Capillary Refill : Less Than 3 SecondsLess Than 3 Seconds General Appearance: No Apparent Distress, Chronically ill HEENT: PERRL/EOMI; No Scleral Icterus (L), No Scleral Icterus (R) Neck: Normal Inspection, Non Tender Respiratory: Chest Non Tender, No Accessory Muscle Use, No Respiratory Distress Cardiovascular: Regular Rate, Rhythm, No Murmur Peripheral Pulses: 2+ Radial Pulses (R), 2+ Radial Pulses (L) Gastrointestinal: soft; No distended, No guarding; tenderness (incisional) Extremity: Non Tender, No Calf Tenderness Neurologic/Psychiatric: Alert; 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 Skin: Normal Color, Warm/Dry Lymphatic: No Adenopathy Results Lab Laboratory Tests 03/27/19 03:40: White Blood Count 13.9H, Red Blood Count 3.76L, Hemoglobin 11.7L, Hematocrit 36L , Mean Corpuscular Volume 97, Mean Corpuscular Hemoglobin 31, Mean Corpuscular H emoglobin Concent 32, Red Cell Distribution Width 15.9H, Platelet Count 176, Mean Platelet Volume 11.1H, Neutrophils (%) (Auto) 78H, Lymphocytes (%) (Auto) 11L, Monocytes (%) (Auto) 11, Eosinophils (%) (Auto) 0, Basophils (%) (Auto) 0, Neutrophils # (Auto) 10.8H, Lymphocytes # (Auto) 1.5, Monocytes # (Auto) 1.5H, Eosinophils # (Auto) 0.1, Basophils # (Auto) 0.0, Sodium Level 142, Potassium Level 3.2L, Chloride Level 108H, Carbon Dioxide Level 23, Anion Gap 11, Blood Urea Nitrogen 6L, Creatinine 0.76, Estimat Glomerular Filtration Rate > 60, BUN/Creatinine Ratio 8, Glucose Level 95, Calcium Level 7.8L, Phosphorus Level 1.6L, Magnesium Level 1.4L, Total Bilirubin 1.3H, Direct Bilirubin 0.9H, Indirect Bilirubin 0.4, Aspartate Amino Transf (AST/SGOT) 42H, Alanine Aminotransferase (ALT/SGPT) 55, Alkaline Phosphatase 80, Total Protein 5.5L, Albumin 2.5L Microbiology 03/18/19 Blood Culture - Final, Complete No growth 03/24/19 MRSA Screen - Final, Complete MRSA not isolated 03/18/19 Urine Culture - Final, Complete NO GROWTH Assessment/Plan Assessment/Plan Assessment/Plan S/p laparoscopic cholecystectomy Pedunculated back mass Altered Mental status Patient still confused today Regular diet, continue as tolerated Continue pain control prn No further general surgery indications at this time ABDOUL JAVIER DO 03/27/19 1824: Subjective Subjective/Events-last exam Still confused. Pain controlled. Tolerating diet. wbc down. denies n/v fever sweats chills shortness of breath or chest pain. Objective Exam General Appearance: Chronically ill HEENT: PERRL/EOMI Neck: Normal Inspection, Non Tender Respiratory: Chest Non Tender, No Accessory Muscle Use, No Respiratory Distress Gastrointestinal: soft, tenderness (incisional, c/d/i) Extremity: Non Tender, No Calf Tenderness Neurologic/Psychiatric: Alert; 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 Skin: Normal Color, Warm/Dry Lymphatic: No Adenopathy Assessment/Plan Assessment/Plan Assessment/Plan s/p lap tor c ioc altered mental status to be evaluated by [facility] Medical management. Supervisory-Addendum Brief Verification & Attestation Participated in pt care: history, MDM, physical Personally performed: exam, history, MDM, supervision of care Care discussed with: Medical Student Procedures: n/a Results interpretation: Verified all documentation Verification and Attestation of Medical Student E/M Service A medical student performed and documented this service in my presence. I reviewed and verified all information documented by the medical student and made modifications to such information, when appropriate. I personally performed the physical exam and medical decision making. Abdoul Javier, Mar 27, 2019,18:24 ILANA KONG,MED STUDENT Mar 27, 2019 15:12 ABDOUL ADAM DO Mar 27, 2019 18:24 POS
[2019-03-27 16:00] VITALS: BP 123/77
--- NOTE | 2019-03-27 16:33 | NUR ---
Pt remains confused with marked memory impairment and is having visual hallucinations of people in his room. Contacted [facility] about possible admission and they will let me know if they can evaluate pt as may be unable to admit pt with Medicaid pending financial status.
[2019-03-27] MEDS: ENOXAPARIN 40 MG/0.4 ML (LOVENOX) SYR SQ SCH (17:29)
[2019-03-27 20:03] VITALS: BP 127/84
[2019-03-27 23:33] VITALS: BP 146/79
[2019-03-28 03:52] VITALS: BP 136/82
[2019-03-28 04:12] LABS: BASOPHILS % (AUTO) 0 % (0-10); EOSINOPHILS # (AUTO) 0.1 10^3/uL (0.0-0.3); EOSINOPHILS % (AUTO) 1 % (0-10); HEMATOCRIT 34 % (40-54); HEMOGLOBIN 10.8 G/DL (13.3-17.7); LYMPHOCYTES # (AUTO) 1.7 X 10^3 (1.0-4.0); LYMPHOCYTES % (AUTO) 14 % (12-44); MEAN CORPUSCULAR HEMOGLOBIN 31 PG (25-34); MEAN CORPUSCULAR HGB CONC 32 G/DL (32-36); MEAN CORPUSCULAR VOLUME 96 FL (80-99); MEAN PLATELET VOLUME 11.3 FL (7.4-10.4); MONOCYTES # (AUTO) 0.8 X 10^3 (0.0-1.0); MONOCYTES % (AUTO) 7 % (0-12); NEUTROPHILS # (AUTO) 9.3 X 10^3 (1.8-7.8); NEUTROPHILS % (AUTO) 78 % (42-75); PLATELET COUNT 192 10^3/uL (130-400); RED CELL DISTRIBUTION WIDTH 15.9 % (10.0-14.5); WHITE BLOOD COUNT 11.9 10^3/uL (4.3-11.0)
[2019-03-28 04:37] LABS: ALANINE AMINOTRANSFERASE 47 U/L (0-55); ALBUMIN 2.4 GM/DL (3.2-4.5); ALKALINE PHOSPHATASE 72 U/L (40-136); BILIRUBIN,DIRECT 0.7 MG/DL (0.0-0.3); BILIRUBIN,INDIRECT 0.4 MG/DL; BILIRUBIN,TOTAL 1.1 MG/DL (0.1-1.0); BUN/CREATININE RATIO 6; CALCIUM 7.5 MG/DL (8.5-10.1); CARBON DIOXIDE 23 MMOL/L (21-32); CHLORIDE 108 MMOL/L (98-107); GFR ESTIMATED > 60; GLUCOSE 117 MG/DL (70-105); MAGNESIUM 1.6 MG/DL (1.6-2.4); PHOSPHORUS 1.8 MG/DL (2.3-4.7); POTASSIUM 3.5 MMOL/L (3.6-5.0); SODIUM 138 MMOL/L (135-145); TOTAL PROTEIN 5.4 GM/DL (6.4-8.2)
[2019-03-28] MEDS ORDERED: MAGNESIUM 1 GM/100 ML IVPB 100 ML IV SCH (05:15)
[2019-03-28] MEDS ORDERED: MAGNESIUM 1 GM/100 ML IVPB 100 ML IV ONE ×2 (05:15→06:30)
[2019-03-28] MEDS ORDERED: KCL 20 MEQ TAB (K-DUR) PO ONE (05:15)
[2019-03-28] MEDS: MAGNESIUM 1 GM/100 ML IVPB 100 ML IV SCH (05:28)
[2019-03-28] MEDS: POTASSIUM CL 10MEQ/50ML IVPB 50 ML IV SCH (05:28)
[2019-03-28] MEDS: KCL 20 MEQ TAB (K-DUR) PO SCH (05:28)
[2019-03-28] MEDS: CHLORHEXIDINE 0.12% SOLN 15 ML (PERIDEX) UDC PO SCH ×3 (05:29→21:42)
[2019-03-28 08:00] VITALS: BP 153/79
[2019-03-28] MEDS: NS IV 1000 ML 1,000 ML IV SCH ×2 (08:40→18:16)
--- NOTE | 2019-03-28 09:36 | Physical Therapy Daily Note ---
PT Daily Note-Current Subjective Patient continues to be confused and requires redirection to remain on task. Mental Status Patient Orientation: Confused Transfers SCALE: Activities may be completed with or without assistive devices. 8-Efktdbterv-qzcjcts completes the activity by him/herself with no assistance from a helper. 5-Set-up or Clean-up Assistance-helper sets up or cleans up; patient completes activity. [place] assists only prior to or following the activity. 4-Supervision or Touching Assistance-helper provides verbal cues and/or touching/steadying and/or contact guard assistance as patient completes activity. Assistance may be provided throughout the activity or intermittently. 3-Partial/Moderate Assistance-helper does LESS THAN HALF the effort. [place] lifts, holds or supports trunk or limbs, but provides less than half the effort. 2-Substantial/Maximal Assistance-helper does MORE THAN HALF the effort. [place] lifts or holds trunk or limbs and provides more than half the effort. 5-Agluhdrzn-hxynps does ALL the effort. Patient does none of the effort to complete the activity. Or, the assistance of 2 or more helpers is required for the patient to complete the activity. If activity was not attempted, code reason: 7-Patient Refused. 9-Not Applicable-not attempted and the patient did not perform the activity before the current illness, exacerbation or injury. 10-Not Attempted due to Environmental Limitations-(lack of equipment, weather restraints, etc.). 88-Not Attempted due to Medical Conditions or Safety Concerns. Roll Left to Right (QC): 6 Sit to Lying (QC): 6 Sit to Stand (QC): 4 Chair/Idp-di-Bxnnr Xfer(QC): 4 Bed to/from Chair: 4 Gait Training Does the Patient Walk?: Yes Distance: 300' Walk 10 feet (QC): 4 Walk 50 ft with 2 Turns(QC): 4 Walk 150 ft (QC): 4 Gait Assistive Device: FWW patient requires redirection to remain in FWW and for direction Assessment Patient continues to have difficulty with remaining on task and is confused. Patient is up in recliner with chair alarm activated and breakfast and call in situ. PT Prison Goals Prison Goals PT Prison Goals Time Frame: Apr 03, 2019 Sit to Lying (QC): 6 Lying-Sitting on Side/Bed(QC): 6 Sit to Stand (QC): 6 Roll Left to Right (QC): 6 Chair/Psg-go-Vcazl Xfer(QC): 6 Car Transfer (QC): 6 Does the Patient Walk: Yes Distance: 200' Walk 10 feet (QC): 6 Walk 10ft-Uneven Surface(QC): 6 Walk 50ft with 2 Turns (QC): 6 Walk 150 ft (QC): 6 # of Steps: 3 1 Step (curb) (QC): 6 4 Steps (QC): 6 PT Plan Treatment/Plan Treatment Plan: Continue Plan of Care Treatment Plan: Bed Mobility, Education, Functional Activity [place], Functional Strength, Gait, Safety, Therapeutic Exercise, Transfers Treatment Duration: Apr 03, 2019 Frequency: 6 times per week Estimated Hrs Per Day: .25 hour per day Patient and/or Family Agrees t: Yes Time/GCodes Time In: 907 Time Out: 919 Total Billed Treatment Time: 12 Total Billed Treatment 1 visit GT 12 min GUADALUPE PRADO PT Mar 28, 2019 09:36 POS
--- NOTE | 2019-03-28 11:21 | Progress Note - Hospitalist ---
Subjective HPI/CC On Admission Date Seen by Provider: Mar 28, 2019 Time Seen by Provider: 11:19 Chief complaint: Found down at home HPI: This is a 59yoWM clinic clinic Pt of [facility] who was brought in after being found down at home by his friend, probably for about three days. Pt was foundto be hypothermic and severe UTI with renal failure and pneumonia. Pt remains with altered mental status and appears to be gravely ill. His prognosis is extremely poor. Friend is at the bedside and does not know of any family that he has. Subjective/Events-last exam patient still confused doesn't know why he is here but not agitated. He states he would like to go home and voices no complaints. Objective Exam Vital Signs Vital Signs Date Time Temp Pulse Resp B/P (MAP) Pulse Ox O2 Delivery O2 Flow Rate FiO2 03/28/19 08:00 Room Air 03/28/19 08:00 37.6 73 20 153/79 (103) 96 03/25/19 12:00 0 Capillary Refill : Less Than 3 SecondsLess Than 3 Seconds General Appearance: No Apparent Distress Respiratory: Chest Non Tender, Lungs Clear, Normal Breath Sounds, No Accessory Muscle Use, No Respiratory Distress Cardiovascular: Regular Rate, Rhythm, No Edema, No Gallop, No JVD, No Murmur, Normal Peripheral Pulses Gastrointestinal: Normal Bowel Sounds, No Organomegaly, No Pulsatile Mass, Non Tender, Soft Results/Procedures Lab Laboratory Tests 03/28/19 03:19 Patient resulted labs reviewed. Assessment/Plan Assessment and Plan Assess & Plan/Chief Complaint (1) Left lower lobe pneumonia Status: Acute Assessment & Plan: Infiltrate vs atelectasis on admit CXR. On Zosyn- 03/25- completed, but will extend for now given cholecystectomy 03/25. 03/27 Will d/c antibiotics Qualifiers: Qualified Codes: J18.1 - Lobar pneumonia, unspecified organism (2) Acute renal failure Status: Resolved Qualifiers: Qualified Codes: N17.9 - Acute kidney failure, unspecified (3) Hypothermia Status: Resolved Qualifiers: Qualified Codes: T68.XXXA - Hypothermia, initial encounter (4) Severe sepsis Status: Resolved (5) Thrombocytopenia Status: Resolved Assessment & Plan: Unknown duration, LFTs elevated on admit but improving. (6) Altered mental status Status: Acute Assessment & Plan: Found down before being brought in. CT head okay. Currently alert but oriented only to self and having some apparent hallucinations. Haldol prn. (7) Elevated liver enzymes Assessment & Plan: AST/ALT improving, bilirubin remained elevated, see below. (8) Cholelithiasis Assessment & Plan: Abd US with cholelithiasis and wall thickening, Surgery notified. 03/24 HIDA today 03/25- Cholecystectomy today per Dr. Bullock 9. Delirium multifactorial continue to monitor. MANUEL PITT MD Mar 28, 2019 11:21 POS
[2019-03-28 12:00] VITALS: BP 142/79
--- NOTE | 2019-03-28 13:36 | Progress Note - Surgery ---
ILANA KONG,MED STUDENT 03/28/19 1336: Subjective Date Seen by a Provider: Mar 28, 2019 Time Seen by a Provider: 08:30 Subjective/Events-last exam Patient seen and examined. He denies new complaints today and says he feels he is doing better. He reports passing flatus but not a bm. He denies trouble with urination. At the time of this visit he is on a regular diet and is eating breakfast. He denies nausea, vomiting, fevers, chills, chest pain, SOB, abdominal pain. He is still confused today, but this seems to be improving as he was able to correctly state location and a current event. Not oriented to time or date. Objective Exam Vital Signs Date Time Temp Pulse Resp B/P (MAP) Pulse Ox O2 Delivery O2 Flow Rate FiO2 03/28/19 08:00 Room Air 03/28/19 08:00 37.6 73 20 153/79 (103) 96 Room Air 03/28/19 03:52 37.5 70 18 136/82 (100) 100 Room Air 03/27/19 23:33 36.9 66 18 146/79 (101) 94 Room Air 03/27/19 20:03 36.8 76 18 127/84 (98) 100 Room Air 03/27/19 20:00 Room Air 03/27/19 16:00 36.6 77 20 123/77 (92) 99 Room Air I & O 03/28/19 07:00 Intake Total 3830 ml Output Total 400 ml Balance 3430 ml Capillary Refill : Less Than 3 SecondsLess Than 3 Seconds General Appearance: No Apparent Distress HEENT: PERRL/EOMI, Pharynx Normal, Moist Mucous Membranes; No Scleral Icterus (L), No Scleral Icterus (R) Neck: Normal Inspection, Non Tender Respiratory: Chest Non Tender, Lungs Clear, Normal Breath Sounds, No Accessory Muscle Use, No Respiratory Distress Cardiovascular: Regular Rate, Rhythm, No Murmur, Normal Peripheral Pulses Peripheral Pulses: 2+ Radial Pulses (R), 2+ Radial Pulses (L) Gastrointestinal: soft; No distended, No guarding; tenderness (incisional, mild) Extremity: Non Tender, No Calf Tenderness Neurologic/Psychiatric: Alert; 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; Normal Mood/Affect Skin: Normal Color, Warm/Dry Results Lab Laboratory Tests 03/28/19 03:19: White Blood Count 11.9H, Red Blood Count 3.54L, Hemoglobin 10.8L, Hematocrit 34L , Mean Corpuscular Volume 96, Mean Corpuscular Hemoglobin 31, Mean Corpuscular Hemoglobin Concent 32, Red Cell Distribution Width 15.9H, Platelet Count 192, Mean Platelet Volume 11.3H, Neutrophils (%) (Auto) 78H, Lymphocytes (%) (Auto) 14, Monocytes (%) (Auto) 7, Eosinophils (%) (Auto) 1, Basophils (%) (Auto) 0, Neutrophils # (Auto) 9.3H, Lymphocytes # (Auto) 1.7, Monocytes # (Auto) 0.8, Eosinophils # (Auto) 0.1, Basophils # (Auto) 0.0, Sodium Level 138, Potassium Level 3.5L, Chloride Level 108H, Carbon Dioxide Level 23, Anion Gap 7, Blood Urea Nitrogen 4L, Creatinine 0.70, Estimat Glomerular Filtration Rate > 60, BUN/Creatinine Ratio 6, Glucose Level 117H, Calcium Level 7.5L, Phosphorus Level 1.8L, Magnesium Level 1.6, Total Bilirubin 1.1H, Direct Bilirubin 0.7H, Indirect Bilirubin 0.4, Aspartate Amino Transf (AST/SGOT) 29, Alanine Aminotransferase (ALT/SGPT) 47, Alkaline Phosphatase 72, Total Protein 5.4L, Albumin 2.4L Microbiology 03/18/19 Blood Culture - Final, Complete No growth 03/24/19 MRSA Screen - Final, Complete MRSA not isolated 03/18/19 Urine Culture - Final, Complete NO GROWTH Assessment/Plan Assessment/Plan Assessment/Plan s/p lap tor with ioc altered mental status LLL pneumonia Confusion improved today WBC continues to improve, down to 11.9 today Continue regular diet as tolerated Plan to DC home today ABDOUL BULLOCK DO 03/28/19 1420: Subjective Subjective/Events-last exam Patient still with confusion. Not having any pain or discomfort. States he's feeling good. Tolerating diet. Denies n/ v fever sweats chills shortness of breath or chest pain. Objective Exam General Appearance: No Apparent Distress HEENT: PERRL/EOMI Neck: Normal Inspection, Non Tender Respiratory: Chest Non Tender, No Accessory Muscle Use, No Respiratory Distress Cardiovascular: Regular Rate, Rhythm Gastrointestinal: soft, tenderness (incisional, mild) Neurologic/Psychiatric: Alert; 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 Skin: Normal Color, Warm/Dry Lymphatic: No Adenopathy Assessment/Plan Assessment/Plan Assessment/Plan s/p lap tor with ioc altered mental status LLL pneumonia back mass not wanting anything done with back mass tolerating diet labs improving no further surgical intervention Supervisory-Addendum Brief Verification & Attestation Participated in pt care: history, MDM, physical Personally performed: exam, history, MDM, supervision of care Care discussed with: Medical Student Procedures: n/a Results interpretation: Verified all documentation Verification and Attestation of Medical Student E/M Service A medical student performed and documented this service in my presence. I reviewed and verified all information documented by the medical student and made modifications to such information, when appropriate. I personally performed the physical exam and medical decision making. Abdoul Bullock, Mar 28, 2019,14:20 ILANA KONG,MED STUDENT Mar 28, 2019 13:36 ABDOUL ADAM DO Mar 28, 2019 14:20 POS
[2019-03-28] MEDS: ENOXAPARIN 40 MG/0.4 ML (LOVENOX) SYR SQ SCH (14:57)
[2019-03-28 16:10] VITALS: BP 143/88
[2019-03-28 20:00] VITALS: BP 161/91
[2019-03-29] VITALS: BP 158/81
[2019-03-29 03:35] LABS: BASOPHILS % (AUTO) 0 % (0-10); EOSINOPHILS # (AUTO) 0.1 10^3/uL (0.0-0.3); EOSINOPHILS % (AUTO) 1 % (0-10); HEMATOCRIT 33 % (40-54); HEMOGLOBIN 10.6 G/DL (13.3-17.7); LYMPHOCYTES # (AUTO) 2.2 X 10^3 (1.0-4.0); LYMPHOCYTES % (AUTO) 17 % (12-44); MEAN CORPUSCULAR HEMOGLOBIN 31 PG (25-34); MEAN CORPUSCULAR HGB CONC 32 G/DL (32-36); MEAN CORPUSCULAR VOLUME 97 FL (80-99); MEAN PLATELET VOLUME 11.5 FL (7.4-10.4); MONOCYTES # (AUTO) 0.8 X 10^3 (0.0-1.0); MONOCYTES % (AUTO) 7 % (0-12); NEUTROPHILS # (AUTO) 9.6 X 10^3 (1.8-7.8); NEUTROPHILS % (AUTO) 75 % (42-75); PLATELET COUNT 188 10^3/uL (130-400); RED CELL DISTRIBUTION WIDTH 15.9 % (10.0-14.5); WHITE BLOOD COUNT 12.8 10^3/uL (4.3-11.0)
[2019-03-29 03:56] LABS: BUN/CREATININE RATIO 6; CALCIUM 7.7 MG/DL (8.5-10.1); CARBON DIOXIDE 21 MMOL/L (21-32); CHLORIDE 110 MMOL/L (98-107); CREATININE SERUM 0.66 MG/DL (0.60-1.30); GFR ESTIMATED > 60; GLUCOSE 90 MG/DL (70-105); MAGNESIUM 1.7 MG/DL (1.6-2.4); PHOSPHORUS 2.1 MG/DL (2.3-4.7); POTASSIUM 3.6 MMOL/L (3.6-5.0); SODIUM 140 MMOL/L (135-145)
[2019-03-29] MEDS: NS IV 1000 ML 1,000 ML IV SCH (04:30)
[2019-03-29] MEDS ORDERED: KCL 20 MEQ TAB (K-DUR) PO ONE (05:15)
[2019-03-29] MEDS: MAGNESIUM 1 GM/100 ML IVPB 100 ML IV SCH ×3 (05:18→06:42)
[2019-03-29] MEDS: CHLORHEXIDINE 0.12% SOLN 15 ML (PERIDEX) UDC PO SCH ×3 (05:18→21:47)
[2019-03-29] MEDS: POTASSIUM CL 10MEQ/50ML IVPB 50 ML IV SCH (05:22)
[2019-03-29] MEDS: KCL 20 MEQ TAB (K-DUR) PO SCH (05:23)
[2019-03-29 07:40] VITALS: BP 148/78
--- NOTE | 2019-03-29 08:35 | Progress Note - Surgery ---
ILANA KONG,MED STUDENT 03/29/19 0835: Subjective Date Seen by a Provider: Mar 29, 2019 Time Seen by a Provider: 07:50 Subjective/Events-last exam Patient seen and examined. He is awake and alert this morning and is watching tv. He states he is having bm and urinating okay, and his last bm was yesterday. He is also passing flatus. Reports eating and drinking okay with no nausea or vomiting, but is generally keeping to bland, light foods. Denies BIRD's, chest pain, SOB, diarrhea, constipation. Objective Exam Vital Signs Date Time Temp Pulse Resp B/P (MAP) Pulse Ox O2 Delivery O2 Flow Rate FiO2 03/29/19 07:40 36.8 60 20 148/78 (101) 95 Room Air 03/29/19 00:00 36.7 66 16 158/81 (106) 98 Room Air 03/28/19 20:00 36.6 73 18 161/91 (114) 99 Room Air 03/28/19 19:30 Room Air 03/28/19 16:10 36.6 50 18 143/88 (106) 94 Room Air 03/28/19 12:00 37.1 94 18 142/79 (100) 98 Room Air I & O 03/29/19 07:00 Intake Total 2380 ml Output Total 1350 ml Balance 1030 ml Capillary Refill : Less Than 3 SecondsLess Than 3 Seconds General Appearance: No Apparent Distress HEENT: PERRL/EOMI, Pharynx Normal, Moist Mucous Membranes; No Scleral Icterus (L), No Scleral Icterus (R) Neck: Normal Inspection, Non Tender Respiratory: Chest Non Tender, No Accessory Muscle Use, No Respiratory Distress Cardiovascular: Regular Rate, Rhythm, No Murmur Peripheral Pulses: 2+ Radial Pulses (R), 2+ Radial Pulses (L) Gastrointestinal: soft; No distended, No guarding, No rebound; tenderness (incisional, mild) Extremity: Non Tender, No Calf Tenderness Neurologic/Psychiatric: Alert; 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; Normal Mood/Affect Skin: Normal Color, Warm/Dry Lymphatic: No Adenopathy Results Lab Laboratory Tests 03/29/19 03:02: White Blood Count 12.8H, Red Blood Count 3.42L, Hemoglobin 10.6L, Hematocrit 33L , Mean Corpuscular Volume 97, Mean Corpuscular Hemoglobin 31, Mean Corpuscular Hemoglobin Concent 32, Red Cell Distribution Width 15.9H, Platelet Count 188, Mean Platelet Volume 11.5H, Neutrophils (%) (Auto) 75, Lymphocytes (%) (Auto) 17, Monocytes (%) (Auto) 7, Eosinophils (%) (Auto) 1, Basophils (%) (Auto) 0, Neutrophils # (Auto) 9.6H, Lymphocytes # (Auto) 2.2, Monocytes # (Auto) 0.8, Eosinophils # (Auto) 0.1, Basophils # (Auto) 0.0, Sodium Level 140, Potassium Level 3.6, Chloride Level 110H, Carbon Dioxide Level 21, Anion Gap 9, Blood Urea Nitrogen 4L, Creatinine 0.66, Estimat Glomerular Filtration Rate > 60, BUN/Cre atinine Ratio 6, Glucose Level 90, Calcium Level 7.7L, Phosphorus Level 2.1L, Magnesium Level 1.7 Microbiology 03/18/19 Blood Culture - Final, Complete No growth 03/24/19 MRSA Screen - Final, Complete MRSA not isolated 03/18/19 Urine Culture - Final, Complete NO GROWTH Assessment/Plan Assessment/Plan Assessment/Plan s/p lap tor with ioc altered mental status LLL pneumonia back mass labs are improving/stable continues to have some confusion/disorientation continue normal diet as tolerated no further surgical interventions indicated at this time will follow ABDOUL JAVIER DO 03/29/19 2020: Subjective Subjective/Events-last exam Still confused. Tolerating diet. Not having abdominal pain No new complaints. Denies n/v fever sweats chills shortness of breath or chest pain. Objective Exam General Appearance: No Apparent Distress HEENT: PERRL/EOMI Neck: Normal Inspection, Non Tender Respiratory: Chest Non Tender, No Accessory Muscle Use, No Respiratory Distress Cardiovascular: Regular Rate, Rhythm Gastrointestinal: soft; No distended; tenderness (incisional, mild, c/d/i), other Extremity: Non Tender, No Calf Tenderness Neurologic/Psychiatric: Alert; 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 Skin: Normal Color, Warm/Dry Lymphatic: No Adenopathy Assessment/Plan Assessment/Plan Assessment/Plan s/p lap tor with ioc altered mental status LLL pneumonia back mass no surgical issues at this time needing placement will follow Supervisory-Addendum Brief Verification & Attestation Participated in pt care: history, MDM, physical Personally performed: exam, history, MDM, supervision of care Care discussed with: Medical Student Procedures: n/a Results interpretation: Verified all documentation Verification and Attestation of Medical Student E/M Service A medical student performed and documented this service in my presence. I reviewed and verified all information documented by the medical student and made modifications to such information, when appropriate. I personally performed the physical exam and medical decision making. Abdoul Javier, Mar 29, 2019,20:20 ILANA KONG,MED STUDENT Mar 29, 2019 08:35 ABDOUL ADAM DO Mar 29, 2019 20:20 POS
--- NOTE | 2019-03-29 11:17 | Progress Note - Hospitalist ---
Subjective HPI/CC On Admission Date Seen by Provider: Mar 29, 2019 Time Seen by Provider: 09:30 Chief complaint: Found down at home HPI: This is a 59yoWM clinic clinic Pt of [facility] who was brought in after being found down at home by his friend, probably for about three days. Pt was foundto be hypothermic and severe UTI with renal failure and pneumonia. Pt remains with altered mental status and appears to be gravely ill. His prognosis is extremely poor. Friend is at the bedside and does not know of any family that he has. Subjective/Events-last exam Patient voices no complaints still confused but with no evidence for agitation. Staff reports he's been incontinent of stool but without diarrhea. Appetite good no significant behavioral problems Objective Exam Vital Signs Vital Signs Date Time Temp Pulse Resp B/P (MAP) Pulse Ox O2 Delivery O2 Flow Rate FiO2 03/29/19 07:40 36.8 60 20 148/78 (101) 95 Room Air 03/25/19 12:00 0 Capillary Refill : Less Than 3 SecondsLess Than 3 Seconds General Appearance: No Apparent Distress Respiratory: No Accessory Muscle Use, No Respiratory Distress, Other (decreased breath sounds left base unchanged otherwise chest is clear) Cardiovascular: Regular Rate, Rhythm, No Edema, No Gallop, No JVD, No Murmur, Normal Peripheral Pulses Neurologic/Psychiatric: Alert (oriented 1 pleasant follow simple commands and moving all extremities no focal neurologic deficits noted. Very poor short-term memory) Results/Procedures Lab Laboratory Tests 03/29/19 03:02 Patient resulted labs reviewed. Assessment/Plan Assessment and Plan Assess & Plan/Chief Complaint (1) Left lower lobe pneumonia Status: Acute Assessment & Plan: Infiltrate vs atelectasis on admit CXR. Zosyn has been stopped by Dr. Shepard today. 03/27 Will d/c antibiotics Qualifiers: Qualified Codes: J18.1 - Lobar pneumonia, unspecified organism (2) Acute renal failure Status: Resolved Qualifiers: Qualified Codes: N17.9 - Acute kidney failure, unspecified (3) Hypothermia Status: Resolved Qualifiers: Qualified Codes: T68.XXXA - Hypothermia, initial encounter (4) Severe sepsis Status: Resolved (5) Thrombocytopenia Status: Resolved Assessment & Plan: Unknown duration, LFTs elevated on admit but improving. (6) Altered mental status Status: Acute Assessment & Plan: Found down before being brought in. CT head okay. Currently alert but oriented only to self and having some apparent hallucinations. Haldol prn. (7) Elevated liver enzymes Assessment & Plan: AST/ALT improving, bilirubin remained elevated, see below. (8) Cholelithiasis Assessment & Plan: Abd US with cholelithiasis and wall thickening, Surgery notified. 03/24 HIDA today 03/25- Cholecystectomy today per Dr. Bullock 9. Delirium multifactorial continue to monitor. 10. Altered mental status likely due to underlying anoxic encephalopathy will need to discuss with criminal justice social worker group home placement versus consideration for geriatric psych. The nurse states that his current place of dwelling is not inhabitable MANUEL PITT MD Mar 29, 2019 11:16 POS
[2019-03-29 16:34] VITALS: BP 134/80
[2019-03-29] MEDS: ENOXAPARIN 40 MG/0.4 ML (LOVENOX) SYR SQ SCH (18:32)
[2019-03-30] VITALS: BP 160/88
[2019-03-30] MEDS: NS IV 1000 ML 1,000 ML IV SCH ×6 (02:22→20:51)
[2019-03-30 05:40] LABS: ALANINE AMINOTRANSFERASE 36 U/L (0-55); ALBUMIN 2.4 GM/DL (3.2-4.5); ALKALINE PHOSPHATASE 77 U/L (40-136); BILIRUBIN,TOTAL 0.9 MG/DL (0.1-1.0); BUN/CREATININE RATIO 6; CALCIUM 7.9 MG/DL (8.5-10.1); CARBON DIOXIDE 23 MMOL/L (21-32); CHLORIDE 110 MMOL/L (98-107); CREATININE SERUM 0.68 MG/DL (0.60-1.30); GFR ESTIMATED > 60; GLUCOSE 92 MG/DL (70-105); MAGNESIUM 1.8 MG/DL (1.6-2.4); POTASSIUM 4.2 MMOL/L (3.6-5.0); SODIUM 141 MMOL/L (135-145); TOTAL PROTEIN 5.3 GM/DL (6.4-8.2)
[2019-03-30] MEDS: KCL 20 MEQ TAB (K-DUR) PO SCH (05:51)
[2019-03-30] MEDS: MAGNESIUM 1 GM/100 ML IVPB 100 ML IV SCH (05:51)
[2019-03-30] MEDS: CHLORHEXIDINE 0.12% SOLN 15 ML (PERIDEX) UDC PO SCH ×3 (05:51→20:51)
[2019-03-30] MEDS: POTASSIUM CL 10MEQ/50ML IVPB 50 ML IV SCH (05:51)
--- NOTE | 2019-03-30 07:43 | Progress Note - Surgery ---
[facility] DAL[facility] 03/30/19 0743: Subjective Date Seen by a Provider: Mar 30, 2019 Time Seen by a Provider: 07:38 Subjective/Events-last exam Pt is alert and was able to tell me the year and that he was at a hospital, but still altered. No family or friends at bedside Denies pain Ambulating with assistance Having bowel movements and urinating without issue Eating without issue Minor bump in WBC from 11.9 to 12.8 Patient denies SOB, N/V, F/C and chest pain Review of Systems General: No Chills, No Night Sweats Pulmonary: No Dyspnea, No Cough Cardiovascular: No: Chest Pain, Palpitations Gastrointestinal: No: Nausea, Vomiting, Abdominal Pain Objective Exam Vital Signs Date Time Temp Pulse Resp B/P (MAP) Pulse Ox O2 Delivery O2 Flow Rate FiO2 03/30/19 00:00 36.5 61 20 160/88 (112) 99 Room Air 03/29/19 19:40 Room Air 03/29/19 16:34 36.2 83 22 134/80 (98) 97 Room Air 03/29/19 08:00 Room Air 03/29/19 07:40 36.8 60 20 148/78 (101) 95 Room Air I & O 03/30/19 07:00 Intake Total 1595 ml Balance 1595 ml Capillary Refill : Less Than 3 SecondsLess Than 3 Seconds General Appearance: No Apparent Distress HEENT: PERRL/EOMI Neck: Normal Inspection, Non Tender Respiratory: Chest Non Tender, No Accessory Muscle Use, No Respiratory Distress Cardiovascular: Regular Rate, Rhythm, No Edema, Normal Peripheral Pulses Peripheral Pulses: 2+ Radial Pulses (R), 2+ Radial Pulses (L) Gastrointestinal: non tender, soft; No distended Extremity: Non Tender, No Calf Tenderness Neurologic/Psychiatric: Alert; 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 Skin: Normal Color, Warm/Dry Lymphatic: No Adenopathy Results Lab Laboratory Tests 03/30/19 04:45: Sodium Level 141, Potassium Level 4.2, Chloride Level 110H, Carbon Dioxide Level 23, Anion Gap 8, Blood Urea Nitrogen 4L, Creatinine 0.68, Estimat Glomerular Filtration Rate > 60, BUN/Creatinine Ratio 6, Glucose Level 92, Calcium Level 7.9L, Corrected Calcium 9.2, Magnesium Level 1.8, Total Bilirubin 0.9, Aspartate Amino Transf (AST/SGOT) 29, Alanine Aminotransferase (ALT/SGPT) 36, Alkaline Rick sphatase 77, Total Protein 5.3L, Albumin 2.4L Microbiology 03/18/19 Blood Culture - Final, Complete No growth 03/24/19 MRSA Screen - Final, Complete MRSA not isolated 03/18/19 Urine Culture - Final, Complete NO GROWTH Assessment/Plan Assessment/Plan Assessment/Plan s/p lap tor with ioc altered mental status LLL pneumonia back mass - patient has no surgical issues at this time and is need of placement - WBC bumped a little may consider another chest x-ray - will follow KULWINDER BULLOCK DO 03/30/192024: Subjective Subjective/Events-last exam Still with confusion. Not having any pain. tolerating diet. having bowel function. no new complaints. Objective Exam General Appearance: No Apparent Distress HEENT: PERRL/EOMI Neck: Normal Inspection, Non Tender Respiratory: Chest Non Tender, No Accessory Muscle Use, No Respiratory Distress Cardiovascular: Regular Rate, Rhythm Gastrointestinal: non tender (incisions c/d/i), soft Extremity: Non Tender Neurologic/Psychiatric: Alert; 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 Skin: Normal Color Lymphatic: No Adenopathy Assessment/Plan Assessment/Plan Assessment/Plan s/p lap tor with ioc altered mental status LLL pneumonia back mass doing okay, still confused no general surgical issues if wbc increases more may repeat chest x ray Supervisory-Addendum Brief Verification & Attestation Participated in pt care: history, MDM, physical Personally performed: exam, history, MDM, supervision of care Care discussed with: Medical Student Procedures: n/a Results interpretation: Verified all documentation Verification and Attestation of Medical Student E/M Service A medical student performed and documented this service in my presence. I reviewed and verified all information documented by the medical student and made modifications to such information, when appropriate. I personally performed the physical exam and medical decision making. Kulwinder Bullock, Mar 30, 2019,20:25 [facility] Mar 30, 2019 07:43 KULWINDER ADAM DO Mar 30, 2019 20:25 POS
[2019-03-30 08:00] VITALS: BP 159/81
--- NOTE | 2019-03-30 09:22 | NUR ---
[facility] unable to accept patient. Mental Health evaluation requested from [facility] and Psychologist, Yamilet will meet with pt tomorrow morning for evaluation. [facility] possible admission decision remains pending.
--- NOTE | 2019-03-30 10:12 | Progress Note - Hospitalist ---
LEI POLLOCK [facility] 03/30/19 1012: Subjective HPI/CC On Admission Date Seen by Provider: Mar 30, 2019 Time Seen by Provider: 07:28 Chief complaint: Found down at home HPI: This is a 59yoWM clinic clinic Pt of [facility] who was brought in after being found down at home by his friend, probably for about three days. Pt was foundto be hypothermic and severe UTI with renal failure and pneumonia. Pt remains with altered mental status and appears to be gravely ill. His prognosis is extremely poor. Friend is at the bedside and does not know of any family that he has. Subjective/Events-last exam Pt reports feeling good today and has no complaints currently He is still very confused and does not remember if he had surgery or not for his gallbladder He did not report any pain at first, but then stated his stomach was hurting near his surgical wound He reports having a BM last night He reports being able to walk to the bathroom fine Review of Systems General: No Chills HEENT: No Head Aches, No Visual Changes Pulmonary: No Dyspnea, No Cough Cardiovascular: No: Chest Pain, Palpitations, Edema Gastrointestinal: Abdominal Pain (Minor RUQ); No: Nausea, Vomiting, Diarrhea, Constipation Genitourinary: No Dysuria, No Hematuria Neurological: Confusion; No: Weakness, Numbness Objective Exam Vital Signs Vital Signs Date Time Temp Pulse Resp B/P (MAP) Pulse Ox O2 Delivery O2 Flow Rate FiO2 03/30/19 09:21 99 Room Air 0.00 03/30/19 08:00 36.7 60 18 159/81 (107) Capillary Refill : Less Than 3 SecondsLess Than 3 Seconds General Appearance: No Apparent Distress, WD/WN Respiratory: Chest Non Tender, Lungs Clear, Normal Breath Sounds, No Accessory Muscle Use, No Respiratory Distress Cardiovascular: Regular Rate, Rhythm, No Edema, No Murmur, Normal Peripheral Pulses Extremity: Non Tender, No Calf Tenderness, No Pedal Edema Neurologic/Psychiatric: Alert, Normal Mood/Affect, Other (Confusion) Skin: Normal Color, Warm/Dry Results/Procedures Lab Laboratory Tests 03/30/19 04:45 Patient resulted labs reviewed. Assessment/Plan Assessment and Plan Assess & Plan/Chief Complaint Assessment: Altered Mental Status, Confusion Hx of Alcohol abuse Hx Hypothermia Post Cholecystectomy Nicotine cravings Plan: Behavioral Health Consult IV fluids Monitor mental status Alcohol withdrawal prophylaxis DVT prophylaxis Nicotine patch TISH HESS DO 03/30/19 1825: Subjective Subjective/Events-last exam Behavioral health consult requested by nursing staff [facility] will likely be required Confusion continues Labs remain stable Eating and drinking better Unreliabledetails from the pt Review of Systems General: Fatigue Neurological: Confusion Objective Exam General Appearance: No Apparent Distress, WD/WN, Chronically ill, Thin Respiratory: Lungs Clear Cardiovascular: Regular Rate, Rhythm Neurologic/Psychiatric: Alert, Disoriented Assessment/Plan Assessment and Plan Assess & Plan/Chief Complaint Plan: Psych consult NHP Prognosis poor Diagnosis/Problems Diagnosis/Problems (1) Hypothermia Status: Resolved Qualifiers: Qualified Codes: T68.XXXA - Hypothermia, initial encounter Resolution Date/Time: 03/23/19 @ 16:07 (2) Severe sepsis Status: Resolved Resolution Date/Time: 03/23/19 @ 16:07 (3) Left lower lobe pneumonia Status: Acute Qualifiers: Qualified Codes: J18.1 - Lobar pneumonia, unspecified organism (4) Acute renal failure Status: Resolved Qualifiers: Qualified Codes: N17.9 - Acute kidney failure, unspecified Resolution Date/Time: 03/23/19 @ 16:07 (5) Urinary tract infection Status: Acute Qualifiers: Qualified Codes: N30.00 - Acute cystitis without hematuria (6) Altered mental status Status: Acute (7) Thrombocytopenia Status: Resolved Resolution Date/Time: 03/26/19 @ 17:35 (8) Elevated liver enzymes (9) Cholelithiasis Supervisory-Addendum Brief Verification & Attestation Participated in pt care: history, MDM, physical Personally performed: exam, history, MDM, supervision of care Care discussed with: Medical Student Procedures: n/a Results interpretation: Verified all documentation Verification and Attestation of Medical Student E/M Service A medical student performed and documented this service in my presence. I reviewed and verified all information documented by the medical student and made modifications to such information, when appropriate. I personally performed the physical exam and medical decision making. Tish Hess, Mar 30, 2019,18:25 [facility] POLL[facility] Mar 30, 2019 10:12 TISH MENDES DO Mar 30, 2019 18:25 POS
--- NOTE | 2019-03-30 11:32 | NUR ---
UP IN CHAIR BY PT, DRESSING CHANGED TO MASS ON BACK, CLEANED WITH SALINE, THEN ABD PAD APPLIED, NO DRAINAGE, DENIES PAIN.
--- NOTE | 2019-03-30 11:37 | NUR ---
RD ASSESSMENT PMHx: ETOH use/abuse; unknown PMHx d/t AMS PT INTERACTION: Pt was awake and pleasant during nutrition follow-up. Note pt has AMS, per chart review. Pt states current appetite is "not bad" and that he is eating "pretty good." Note pt avg PO intake of 45% x4d, per chart review. Pt states no recent issues with n/v/c/d since last assessment. Note last BM was 03/30, and pt not currrently on bowel regimen, per chart review. ABNORMAL NUTRITION-RELATED LAB VALUES: CL 110 (H); BUN 4 (L); Ca 7.9 (L): Pro 5.3 (L); alb 2.4 (L) Est. kcal needs: 6511-5400 kcal | 20-25 kcal/kg Est. Pro needs: 94-113 g Pro | 1.0-1.2 g Pro/kg PES STATEMENT: Inadequate oral intake (NI-2.1) related to loss of appetite as evidenced by pt interview | avg PO intake 45% x4d INTERVENTION: Continue with current diet order of Regular diet. Add Ensure Enlive to meals BID. Provides 350 kcal and 13 g Pro per serving. Will continue to follow and reassess as pt needs and status change. MONITOR/EVALUATE: PO Intake; Plan of Care; Hydration Status; Weight Status; Lab Values Darius Valdes, , RD, LD
--- NOTE | 2019-03-30 11:58 | Physical Therapy Daily Note ---
PT Daily Note-Current Subjective Patient agrees to PT. Reports no pain at this time. Pain Numeric Pain Scale: 0-No Pain Location: No Pain Reported Mental Status Patient Orientation: Confused Attachments: IV Transfers SCALE: Activities may be completed with or without assistive devices. 7-Govlvinjkv-latsfie completes the activity by him/herself with no assistance from a helper. 5-Set-up or Clean-up Assistance-helper sets up or cleans up; patient completes activity. [place] assists only prior to or following the activity. 4-Supervision or Touching Assistance-helper provides verbal cues and/or touching/steadying and/or contact guard assistance as patient completes activity. Assistance may be provided throughout the activity or intermittently. 3-Partial/Moderate Assistance-helper does LESS THAN HALF the effort. [place] lifts, holds or supports trunk or limbs, but provides less than half the effort. 2-Substantial/Maximal Assistance-helper does MORE THAN HALF the effort. [place] lifts or holds trunk or limbs and provides more than half the effort. 4-Bellahapj-tpveky does ALL the effort. Patient does none of the effort to complete the activity. Or, the assistance of 2 or more helpers is required for the patient to complete the activity. If activity was not attempted, code reason: 7-Patient Refused. 9-Not Applicable-not attempted and the patient did not perform the activity before the current illness, exacerbation or injury. 10-Not Attempted due to Environmental Limitations-(lack of equipment, weather restraints, etc.). 88-Not Attempted due to Medical Conditions or Safety Concerns. Roll Left to Right (QC): 6 Sit to Lying (QC): 6 Sit to Stand (QC): 4 Gait Training Does the Patient Walk?: Yes Distance: 150' Walk 10 feet (QC): 4 Walk 50 ft with 2 Turns(QC): 4 Walk 150 ft (QC): 4 Gait Assistive Device: FWW unsteady; requires assistance to guide walker direction; occasional LOB Exercises Supine Ex: Ankle pumps, Heel Slides, Straight leg raise Supine Reps: 10 Assessment Patient performed supine exercises in bed prior to ambulation and demonstrated fair strength in performance. Patient sat to EOB independently and stood with walker with min assist. Upon standing, patient incontinent BM requiring assistance with toileting. Patient able to perform toilet transfer CGA, requiring assistance to clean self. Patient then ambulated 150' in hallway, continuing to demonstrate unsteady gait and requiring assistance to maneuver walker. Patient seated in recliner with chair alarm set at conclusion of treatment. PT Long-Term Goals Mushroom Cutter Goals PT Mushroom Cutter Goals Time Frame: Apr 03, 2019 Sit to Lying (QC): 6 Lying-Sitting on Side/Bed(QC): 6 Sit to Stand (QC): 6 Roll Left to Right (QC): 6 Chair/Zya-xi-Egpru Xfer(QC): 6 Car Transfer (QC): 6 Does the Patient Walk: Yes Distance: 200' Walk 10 feet (QC): 6 Walk 10ft-Uneven Surface(QC): 6 Walk 50ft with 2 Turns (QC): 6 Walk 150 ft (QC): 6 # of Steps: 3 1 Step (curb) (QC): 6 4 Steps (QC): 6 PT Plan Treatment/Plan Treatment Plan: Continue Plan of Care Treatment Plan: Bed Mobility, Education, Functional Activity Malia, Functional Strength, Gait, Safety, Therapeutic Exercise, Transfers Treatment Duration: Apr 03, 2019 Frequency: 6 times per week Estimated Hrs Per Day: .25 hour per day Patient and/or Family Agrees t: Yes Time/GCodes Time In: 1012 Time Out: 1040 Total Billed Treatment Time: 28 Total Billed Treatment 1 visit EX 13min FA 15min GUADALUPE PRADO PT Mar 30, 2019 11:58 POS
--- NOTE | 2019-03-30 14:20 | Occupational Ther Daily Note ---
OT Current Status-Daily Note Subjective Pt alert, sitting in recliner. Pt agrees to therapy. Pt states that it is either 2017 or 2018 and wasn't sure if he was in [place] or [facility]. Pt reoriented to place and time. Mental Status/Objective Patient Orientation: Person ADL-Treatment Therapy Code Descriptions/Definitions Functional [place] Measure: 0=Not Assessed/NA 4=Minimal Assistance 1=Total Assistance 5=Supervision or Setup 2=Maximal Assistance 6=Modified [place] 3=Moderate Assistance 7=Complete IndependenceSCALE: Activities may be completed with or without assistive devices. 4-Clwqtiagme-wzupaek completes the activity by him/herself with no assistance from a helper. 5-Set-up or Clean-up Assistance-helper sets up or cleans up; patient completes activity. [place] assists only prior to or following the activity. 4-Supervision or Touching Assistance-helper provides verbal cues and/or touching/steadying and/or contact guard assistance as patient completes activity. Assistance may be provided throughout the activity or intermittently. 3-Partial/Moderate Assistance-helper does LESS THAN HALF the effort. [place] lifts, holds or supports trunk or limbs, but provides less than half the effort. 2-Substantial/Maximal Assistance-helper does MORE THAN HALF the effort. [place] lifts or holds trunk or limbs and provides more than half the effort. 7-Qvwqxytxu-qhqfep does ALL the effort. Patient does none of the effort to complete the activity. Or, the assistance of 2 or more helpers is required for the patient to complete the activity. If activity was not attempted, code reason: 7-Patient Refused. 9-Not Applicable-not attempted and the patient did not perform the activity before the current illness, exacerbation or injury. 10-Not Attempted due to Environmental Limitations-(lack of equipment, weather restraints, etc.). 88-Not Attempted due to Medical Conditions or Safety Concerns. Other Treatment Pt completed 4 UE exercises using light resistance theraband, 2 sets 10 reps, to increase UE strength for daily functional tasks. Pt required skilled instructio n for technique and remembering which exercises to complete. Pt was not able to remember any exercises without prompts. Pt fatigued quickly though only took recovery breaks after each set. After therapy, pt lying in bed with call light/phone in reach. All needs met in room. OT Short Term Goals Short Term Goals Time Frame: Mar 27, 2019 1=Demonstrate adherence to instructed precautions during ADL tasks. 2=Patient will verbalize/demonstrate understanding of assistive devices/modifications for ADL. 3=Patient will improve strength/tolerance for activity to enable patient to perform ADL's. OT Retirement Goals Retirement Goals Time Frame: Mar 27, 2019 Eating (QC): 6 Oral Hygiene (QC): 6 Shower/Bathe Self (QC): 4 (met) Upper Body Dressing (QC): 5 (met) Lower Body Dressing (QC): 4 On/Off Footwear (QC): 4 Toileting Hygiene (QC): 4 Toilet/Commode Transfer (QC): 4 (met) Additional Goals: 1-Demonstrate ADL Tasks, 2-Verbalize Understanding, 3- ImproveStrength/[place] 1=Demonstrate adherence to instructed precautions during ADL tasks. 2=Patient will verbalize/demonstrate understanding of assistive devices/modifications for ADL. 3=Patient will improve strength/tolerance for activity to enable patient to perform ADL's. OT Education/Plan Problem List/Assessment Assessment: Decreased UE Strength Discharge Recommendations Plan/Recommendations: Continue POC Treatment Plan/Plan of Care Treatment,Training & Education: Yes Patient would benefit from OT for education, treatment and training to promote independence in ADL's, mobility, safety and/or upper extremity function for ADL's. Plan of Care: ADL Retraining, Functional Mobility, UE Funct Exercise/Act Treatment Duration: Mar 27, 2019 Frequency: 5 times per week Estimated Hrs Per Day: .25 hour per day Agreement: Yes Rehab Potential: Guarded Time/GCodes Start Time: 13:35 Stop Time: 13:58 Total Time Billed (hr/min): 23 Billed Treatment Time 1 visit-EX 2 (23 min) LEVI GARCIA Mar 30, 2019 14:19 POS
--- NOTE | 2019-03-30 15:43 | Occ Therapy Rehab Re-Cert ---
OT Re-Certification Form Plan of Care: ADL Retraining, Functional Mobility, UE Funct Exercise/Act Dated: 03/27/19 for re-certification Frequency: 5 times per week Estimated Hrs Per Day: .25 hour per day Agreement: Yes Rehab Potential: Fair OT Short Term Goals Short Term Goals Time Frame: Mar 27, 2019 OT Academic Services Professional Goals Academic Services Professional Goals Time Frame: Apr 03, 2019 Eating (QC): 6 Oral Hygiene (QC): 6 Shower/Bathe Self (QC): 4 (SUP) Upper Body Dressing (QC): 6 Lower Body Dressing (QC): 4 (SBA) On/Off Footwear (QC): 4 (SBA) Toileting Hygiene (QC): 6 Toilet/Commode Transfer (QC): 4 (SUP) Additional Goals: 1-Demonstrate ADL Tasks, 2-Verbalize Understanding, 3- ImproveStrength/Malia Additional Goals: 1-Demonstrate ADL Tasks, 2-Verbalize Understanding, 3- ImproveStrength/Malia 1=Demonstrate adherence to instructed precautions during ADL tasks. 2=Patient will verbalize/demonstrate understanding of assistive devices/modifications for ADL. 3=Patient will improve strength/tolerance for activity to enable patient to perform ADL's. MALDONADO HILL OTR Mar 30, 2019 15:43 POS
[2019-03-30 16:00] VITALS: BP 147/77
[2019-03-30] MEDS: ENOXAPARIN 40 MG/0.4 ML (LOVENOX) SYR SQ SCH (16:30)
[2019-03-30] MEDS: LORazepam 0.5 MG (ATIVAN) TABLET PO PRN (22:02)
[2019-03-30 23:40] VITALS: BP 147/81
[2019-03-31] MEDS: LORazepam 0.5 MG (ATIVAN) TABLET PO PRN ×2 (05:09→13:50)
[2019-03-31] MEDS: NS IV 1000 ML 1,000 ML IV SCH ×2 (06:20→16:39)
[2019-03-31 06:52] LABS: BUN/CREATININE RATIO 8; CALCIUM 8.2 MG/DL (8.5-10.1); CARBON DIOXIDE 22 MMOL/L (21-32); CHLORIDE 108 MMOL/L (98-107); CREATININE SERUM 0.73 MG/DL (0.60-1.30); GFR ESTIMATED > 60; GLUCOSE 87 MG/DL (70-105); MAGNESIUM 1.6 MG/DL (1.6-2.4); POTASSIUM 3.3 MMOL/L (3.6-5.0); SODIUM 140 MMOL/L (135-145)
[2019-03-31] MEDS: MAGNESIUM 1 GM/100 ML IVPB 100 ML IV SCH (06:55)
[2019-03-31] MEDS: POTASSIUM CL 10MEQ/50ML IVPB 50 ML IV SCH (06:55)
[2019-03-31] MEDS: KCL 20 MEQ TAB (K-DUR) PO SCH (07:01)
[2019-03-31] MEDS: CHLORHEXIDINE 0.12% SOLN 15 ML (PERIDEX) UDC PO SCH ×3 (07:01→22:31)
[2019-03-31 08:00] VITALS: BP 157/90
--- NOTE | 2019-03-31 08:35 | Progress Note - Surgery ---
[facility] 03/31/19 0835: Subjective Date Seen by a Provider: Mar 31, 2019 Time Seen by a Provider: 07:00 Subjective/Events-last exam Patient is alert but not oriented. No family or friends at bedside Pt is tolerating eating Having bowel movements and urinating without issue Pt has no pain and no concerns at this time Abdominal wounds are intact and healing appropriately Pt denies N/V, F/C, Abdominal pain, SOB, and chest pain Review of Systems General: No Chills, No Night Sweats Pulmonary: No Dyspnea, No Cough Cardiovascular: No: Chest Pain, Palpitations Gastrointestinal: No: Nausea, Vomiting, Abdominal Pain Objective Exam Vital Signs Date Time Temp Pulse Resp B/P (MAP) Pulse Ox O2 Delivery O2 Flow Rate FiO2 03/30/19 23:40 36.6 76 18 147/81 (103) 97 Room Air 03/30/19 20:00 99 Room Air 0.00 03/30/19 16:00 37.0 75 18 147/77 (100) 98 Room Air 03/30/19 09:21 99 Room Air 0.00 I & O 03/31/19 07:00 Intake Total 3700 ml Balance 3700 ml Capillary Refill : Less Than 3 SecondsLess Than 3 Seconds General Appearance: No Apparent Distress HEENT: PERRL/EOMI Neck: Normal Inspection, Non Tender Respiratory: Chest Non Tender, No Accessory Muscle Use, No Respiratory Distress Cardiovascular: Regular Rate, Rhythm Peripheral Pulses: 2+ Radial Pulses (R), 2+ Radial Pulses (L) Gastrointestinal: non tender (incisions c/d/i), soft Extremity: Non Tender Neurologic/Psychiatric: Alert; 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 Skin: Normal Color Lymphatic: No Adenopathy Results Lab Laboratory Tests 03/31/19 05:49: Sodium Level 140, Potassium Level 3.3L, Chloride Level 108H, Carbon Dioxide Level 22, Anion Gap 10, Blood Urea Nitrogen 6L, Creatinine 0.73, Estimat Glomerular Filtration Rate > 60, BUN/Creatinine Ratio 8, Glucose Level 87, Calcium Level 8.2L, Magnesium Level 1.6 Microbiology 03/18/19 Blood Culture - Final, Complete No growth 03/24/19 MRSA Screen - Final, Complete MRSA not isolated 03/18/19 Urine Culture - Final, Complete NO GROWTH Assessment/Plan Assessment/Plan Assessment/Plan s/p lap tor with ioc altered mental status LLL pneumonia back mass - doing good, still confused - no general surgical concerns - Order CBC with Diff, and continue to monitor WBC and consider possible X-ray if it continues to increase ABDOUL BULLOCK DO 03/31/19 2333: Subjective Subjective/Events-last exam pleasant and confused. No new complaints. Pain controlled. Denies n/v fever sweats chills shortness of breath or chest pain. Objective Exam General Appearance: No Apparent Distress HEENT: PERRL/EOMI Neck: Non Tender Respiratory: Chest Non Tender, No Accessory Muscle Use, No Respiratory Distress Cardiovascular: Regular Rate, Rhythm Gastrointestinal: non tender (incisions c/d/i), soft Extremity: Non Tender Neurologic/Psychiatric: Alert; 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 Skin: Normal Color Assessment/Plan Assessment/Plan Assessment/Plan s/p lap tor with ioc altered mental status LLL pneumonia back mass history of EtOH abuse medical management no further general surgical needs at this time. Supervisory-Addendum Brief Verification & Attestation Participated in pt care: history, MDM, physical Personally performed: exam, history, MDM, supervision of care Care discussed with: Medical Student Procedures: n/a Results interpretation: Verified all documentation Verification and Attestation of Medical Student E/M Service A medical student performed and documented this service in my presence. I reviewed and verified all information documented by the medical student and made modifications to such information, when appropriate. I personally performed the physical exam and medical decision making. Abdoul Bullock, Mar 31, 2019,23:33 [facility] Mar 31, 2019 08:35 ABDOUL DAAM DO Mar 31, 2019 23:33 POS
--- NOTE | 2019-03-31 09:52 | Physical Therapy Daily Note ---
PT Daily Note-Current Subjective Patient agrees to PT with friend present in room. Reports no pain but appears to be more confused today than previously. Pain Numeric Pain Scale: 0-No Pain Location: No Pain Reported Mental Status Patient Orientation: Confused Attachments: IV Transfers SCALE: Activities may be completed with or without assistive devices. 0-Bwougvacyj-haseffn completes the activity by him/herself with no assistance from a helper. 5-Set-up or Clean-up Assistance-helper sets up or cleans up; patient completes activity. [place] assists only prior to or following the activity. 4-Supervision or Touching Assistance-helper provides verbal cues and/or touching/steadying and/or contact guard assistance as patient completes activity. Assistance may be provided throughout the activity or intermittently. 3-Partial/Moderate Assistance-helper does LESS THAN HALF the effort. [place] lifts, holds or supports trunk or limbs, but provides less than half the effort. 2-Substantial/Maximal Assistance-helper does MORE THAN HALF the effort. [place] lifts or holds trunk or limbs and provides more than half the effort. 3-Mxxrihlwt-miwjbz does ALL the effort. Patient does none of the effort to complete the activity. Or, the assistance of 2 or more helpers is required for the patient to complete the activity. If activity was not attempted, code reason: 7-Patient Refused. 9-Not Applicable-not attempted and the patient did not perform the activity before the current illness, exacerbation or injury. 10-Not Attempted due to Environmental Limitations-(lack of equipment, weather restraints, etc.). 88-Not Attempted due to Medical Conditions or Safety Concerns. Roll Left & Right (QC): 6 Sit to Lying (QC): 6 Lying to Sitting/Side of Bed(Q: 6 Sit to Stand (QC): 4 Gait Training Does the Patient Walk?: Yes Distance: 200' Walk 10 feet (QC): 4 Walk 50 ft with 2 Turns(QC): 4 Walk 150 ft (QC): 4 Gait Assistive Device: FWW Unsteady, required cues to stay within walker, improved with further ambulation Exercises Supine Ex: Heel Slides, Straight leg raise Supine Reps: 10 Assessment Patient performed bed mobility independently. Able to stand from bed with mini mal assistance, but required cues to use at least one hand to push off from bed. Patient ambulated 200' with FWW, initially demonstrating unsteady gait and requiring cues to remain within walker, but was able to improve steadiness with further ambulation. Patient performed toileting with SBA-CGA for all aspects. Patient returned to bed with bed alarm on at conclusion of treatment. PT Earthmoving Plant Operator Goals Earthmoving Plant Operator Goals PT Earthmoving Plant Operator Goals Time Frame: Apr 03, 2019 Roll Left & Right (QC): 6 Sit to Lying (QC): 6 Lying-Sitting on Side/Bed(QC): 6 Sit to Stand (QC): 6 Chair/Zza-qh-Avvrc Xfer(QC): 6 Toilet Transfer (QC): 4 (met) Car Transfer (QC): 6 Does the Patient Walk: Yes Walk 10 feet (QC): 6 Walk 50ft with 2 Turns (QC): 6 Walk 150 ft (QC): 6 Walking 10ft on Uneven Surface: 6 1 Step (curb) (QC): 6 4 Steps (QC): 6 12 Steps (QC): 6 Picking up an Object (QC): 6 Does the Pt use WC or Scooter?: No Type: N/A Type: N/A PT Plan Treatment/Plan Treatment Plan: Continue Plan of Care Treatment Plan: Bed Mobility, Education, Functional Activity [place], Functional Strength, Gait, Safety, Therapeutic Exercise, Transfers Treatment Duration: Apr 03, 2019 Frequency: 6 times per week Estimated Hrs Per Day: .25 hour per day Patient and/or Family Agrees t: Yes Time/GCodes Time In: 834 Time Out: 858 Total Billed Treatment Time: 24 Total Billed Treatment 1 visit GT 10min FA 14min GUADALUPE PRADO PT Mar 31, 2019 09:52 POS
--- NOTE | 2019-03-31 10:15 | Progress Note - Hospitalist ---
[facility] 03/31/19 1015: Subjective HPI/CC On Admission Date Seen by Provider: Mar 31, 2019 Time Seen by Provider: 07:16 Chief complaint: Found down at home HPI: This is a 59yoWM clinic clinic Pt of [place] who was brought in after being found down at home by his friend, probably for about three days. Pt was foundto be hypothermic and severe UTI with renal failure and pneumonia. Pt remains with altered mental status and appears to be gravely ill. His prognosis is extremely poor. Friend is at the bedside and does not know of any family that he has. Subjective/Events-last exam Pt reports no pain or current problems He states he was able to walk around the unit some yesterday using a walker He reports having normal bowel movements He has some pedal edema today which he states was a chronic issue he gets sometimes after walking a lot He reports wanting a cigar and a beer currently He is still confused and will likely require snf placement upon discharge Review of Systems General: No Chills HEENT: No Head Aches, No Visual Changes Pulmonary: No Dyspnea, No Cough Cardiovascular: Edema; No: Chest Pain, Palpitations Gastrointestinal: No: Nausea, Vomiting, Abdominal Pain, Diarrhea, Constipation Genitourinary: No Dysuria, No Hematuria Neurological: Confusion; No: Weakness, Numbness Objective Exam Vital Signs Vital Signs Date Time Temp Pulse Resp B/P (MAP) Pulse Ox O2 Delivery O2 Flow Rate FiO2 03/31/19 08:00 99 Room Air 0.00 03/31/19 08:00 37.0 70 20 157/90 (112) Capillary Refill : Less Than 3 SecondsLess Than 3 Seconds General Appearance: No Apparent Distress, WD/WN Respiratory: Chest Non Tender, Lungs Clear, Normal Breath Sounds, No Accessory Muscle Use, No Respiratory Distress Cardiovascular: Regular Rate, Rhythm; No No Edema; No Murmur, Normal Peripheral Pulses Gastrointestinal: Non Tender, Soft Extremity: Normal Inspection, Non Tender, No Calf Tenderness, Pedal Edema Neurologic/Psychiatric: Alert, No Motor/Sensory Deficits, Other (Confusion) Skin: Normal Color, Warm/Dry Results/Procedures Lab Laboratory Tests 03/31/19 05:49 Patient resulted labs reviewed. Assessment/Plan Assessment and Plan Assess & Plan/Chief Complaint Assessment: Altered Mental Status, Confusion Hx of Alcohol abuse Hx Hypothermia Post Cholecystectomy Nicotine cravings Plan: Behavioral Health Consult Monitor mental status Alcohol withdrawal prophylaxis DVT prophylaxis PT/OT Nicotine patch DESHAWNTISH WILLS 03/31/19 1858: Subjective Subjective/Events-last exam Pt doing pretty well. Friend who found him down is at the bedside today. Constantly always asking for alcohol. snf placement pending. Review of Systems Neurological: Confusion Objective Exam General Appearance: No Apparent Distress, WD/WN, Chronically ill, Cachetic Respiratory: Lungs Clear Cardiovascular: Regular Rate, Rhythm Neurologic/Psychiatric: Alert, Disoriented Assessment/Plan Assessment and Plan Assess & Plan/Chief Complaint NHP pending Supportive care Diagnosis/Problems Diagnosis/Problems (1) Hypothermia Status: Resolved Qualifiers: Qualified Codes: T68.XXXA - Hypothermia, initial encounter Resolution Date/Time: 03/23/19 @ 16:07 (2) Acute renal failure Status: Resolved Qualifiers: Qualified Codes: N17.9 - Acute kidney failure, unspecified Resolution Date/Time: 03/23/19 @ 16:07 (3) DVT prophylaxis Status: Acute (4) Urinary tract infection Status: Acute Qualifiers: Qualified Codes: N30.00 - Acute cystitis without hematuria (5) Severe sepsis Status: Resolved Resolution Date/Time: 03/23/19 @ 16:07 (6) Left lower lobe pneumonia Status: Acute Qualifiers: Qualified Codes: J18.1 - Lobar pneumonia, unspecified organism (7) Thrombocytopenia Status: Resolved Resolution Date/Time: 03/26/19 @ 17:35 (8) Altered mental status Status: Acute (9) Elevated liver enzymes (10) Cholelithiasis Supervisory-Addendum Brief Verification & Attestation Participated in pt care: history, MDM, physical Personally performed: exam, history, MDM, supervision of care Care discussed with: Medical Student Procedures: n/a Results interpretation: Verified all documentation Verification and Attestation of Medical Student E/M Service A medical student performed and documented this service in my presence. I reviewed and verified all information documented by the medical student and made modifications to such information, when appropriate. I personally performed the physical exam and medical decision making. Tish Kilpatrick, Mar 31, 2019,18:58 [facility] Mar 31, 2019 10:15 TISH MENDES DO Mar 31, 2019 18:58 POS
--- NOTE | 2019-03-31 11:42 | Occupational Ther Daily Note ---
OT Current Status-Daily Note Subjective Pt seen reclined in bed, does not rate or c/o pain. Pt's friend present through session, agreeable to OT tx session. Pt oriented to person only- upon reorientation, pt states he doesn't know how he is in [place] as he just got off the boat in [place]. Mental Status/Objective Patient Orientation: Person Attachments: IV ADL-Treatment Therapy Code Descriptions/Definitions Functional [place] Measure: 0=Not Assessed/NA 4=Minimal Assistance 1=Total Assistance 5=Supervision or Setup 2=Maximal Assistance 6=Modified [place] 3=Moderate Assistance 7=Complete IndependenceSCALE: Activities may be completed with or without assistive devices. 5-Zrrafkicmx-yogniyx completes the activity by him/herself with no assistance from a helper. 5-Set-up or Clean-up Assistance-helper sets up or cleans up; patient completes activity. [place] assists only prior to or following the activity. 4-Supervision or Touching Assistance-helper provides verbal cues and/or touching/steadying and/or contact guard assistance as patient completes acti vity. Assistance may be provided throughout the activity or intermittently. 3-Partial/Moderate Assistance-helper does LESS THAN HALF the effort. [place] lifts, holds or supports trunk or limbs, but provides less than half the effort. 2-Substantial/Maximal Assistance-helper does MORE THAN HALF the effort. [place] lifts or holds trunk or limbs and provides more than half the effort. 8-Bodaekeri-xfxhoz does ALL the effort. Patient does none of the effort to complete the activity. Or, the assistance of 2 or more helpers is required for the patient to complete the activity. If activity was not attempted, code reason: 7-Patient Refused. 9-Not Applicable-not attempted and the patient did not perform the activity before the current illness, exacerbation or injury. 10-Not Attempted due to Environmental Limitations-(lack of equipment, weather restraints, etc.). 88-Not Attempted due to Medical Conditions or Safety Concerns. Eating (QC): 6 (Drinks coffee, eats banana in bed.) Toileting Hygiene (QC): 4 (CGA in stance.) Toilet Transfer (QC): 4 (CGA.) Other Treatment Pt states he would like to toilet, states he needs to eat banana beforehand. Pt completes bed mob with SUP, sit to stand with min A to FWW. Pt ambulates to toilet, completes BM hygiene in stance with CGA and hand hygiene with CGA. Pt's friend states concern of orientation, pt's friend educated on continuing activities to bring pt to present. Returns to bed with bed alarm on all needs met. Education OT Patient Education: Correct positioning, Modified ADL techniques, Safety issues Teaching Recipient: Patient Teaching Methods: Demonstration, Discussion Response to Teaching: Verbalize Understanding, Return Demonstration, Reinforcement Needed OT Short Term Goals Short Term Goals Time Frame: Mar 27, 2019 OT Hospital Staff Pharmacist Goals Hospital Staff Pharmacist Goals Time Frame: Apr 03, 2019 Eating (QC): 6 (met) Oral Hygiene (QC): 6 Toileting Hygiene (QC): 4 (met) Shower/Bathe Self (QC): 4 (met) Upper Body Dressing (QC): 5 (met) Lower Body Dressing (QC): 4 On/Off Footwear (QC): 4 Eating (QC): 6 Oral Hygiene (QC): 6 Shower/Bathe Self (QC): 4 (SUP) Upper Body Dressing (QC): 6 Lower Body Dressing (QC): 4 (SBA) On/Off Footwear (QC): 4 (SBA) Toileting Hygiene (QC): 6 Toilet/Commode Transfer (QC): 4 (SUP) Additional Goals: 1-Demonstrate ADL Tasks, 2-Verbalize Understanding, 3- ImproveStrength/Malia Additional Goals: 1-Demonstrate ADL Tasks, 2-Verbalize Understanding, 3- ImproveStrength/[place] 1=Demonstrate adherence to instructed precautions during ADL tasks. 2=Patient will verbalize/demonstrate understanding of assistive devices/modifications for ADL. 3=Patient will improve strength/tolerance for activity to enable patient to perform ADL's. OT Education/Plan Problem List/Assessment Assessment: Decreased Activ Tolerance, Decreased Safety Aware, Decreased UE Strength, Impaired Cognition, Impaired Funct Balance, Impaired I ADL's, Impaired Self-Care Skills Discharge Recommendations Plan/Recommendations: Continue POC Therapy Discharge Recommendati: 24 Hour Supervision Treatment Plan/Plan of Care Treatment,Training & Education: Yes Patient would benefit from OT for education, treatment and training to promote independence in ADL's, mobility, safety and/or upper extremity function for ADL's. Plan of Care: ADL Retraining, Functional Mobility, UE Funct Exercise/Act Treatment Duration: Mar 27, 2019 Frequency: 5 times per week Estimated Hrs Per Day: .25 hour per day Agreement: Yes Rehab Potential: Fair Time/GCodes Start Time: 09:46 Stop Time: 10:00 Total Time Billed (hr/min): 13 Billed Treatment Time 1, ADL (13) MALDONADO HILL OTR Mar 31, 2019 11:42 POS
--- NOTE | 2019-03-31 14:25 | NUR ---
Behavioral Health evaluated pt and states pat seemed to be suffering from some type of delirium as he was disoriented,confused, disorganized and delusional throughout interview when answering questions. [facility] and [facility] which has a locked unit for [facility] patients has accepted pt for continued care.
[2019-03-31 16:00] VITALS: BP 132/90
[2019-03-31] MEDS: ENOXAPARIN 40 MG/0.4 ML (LOVENOX) SYR SQ SCH (16:41)
[2019-03-31 23:42] VITALS: BP 148/73
[2019-04-01 05:20] VITALS: BP 152/84
[2019-04-01] MEDS: CHLORHEXIDINE 0.12% SOLN 15 ML (PERIDEX) UDC PO SCH ×2 (06:03→14:19)
[2019-04-01 08:00] VITALS: BP 168/84
[2019-04-01] MEDS: MAGNESIUM 1 GM/100 ML IVPB 100 ML IV SCH (08:37)
[2019-04-01] MEDS: POTASSIUM CL 10MEQ/50ML IVPB 50 ML IV SCH (08:37)
[2019-04-01] MEDS: KCL 20 MEQ TAB (K-DUR) PO SCH (08:37)
[2019-04-01] MEDS ORDERED: KCL 20 MEQ TAB (K-DUR) PO ONE ×2 (09:30→12:00)
--- NOTE | 2019-04-01 09:50 | Behavioral Health Consult ---
Consult- Consult Date Seen by Provider: Mar 31, 2019 Time Seen by Provider: 10:20 Date: 03/31/19 CPT Code: 27890 Psychodiagnostic Examination, 65180 +Interactive Complexity, 1 unit(s) Start Time: 10:20 am Stop Time: 11:10 am Chief Complaint: cognitive Referral: Michael Braun is a 59-year-old, , male referred by Dr. Kilpatrick for a clinical diagnostic assessment. Information for this evaluation was gathered from self-report, clinical observation, and medical records. Presenting Problem: The presenting clinical problem is cognitive. When therapist walked in the room Michael said that he remembered me. Therapist does not know him but played along to see what he would say. He stated it has been ten years since we have seen each other and that his dad is the President. He did not clarify further even with prompting. He was extremely confused throughout the meeting and changed information and stories frequently. He initially said he was in the hospital for about a week, but later stated he had only been there for two hours and changed the reasons why he was there. He initially said he was in [facility] but not really [facility], but then later stated he was in [place], and then on a boat. He did recall throughout the meeting that his was . 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 He stated a couple of time that the year is 1916. When asked who the President is he pointed toward his friend and said he is. He fluctuated throughout the appointment with thinking this therapist was someone he knew, a family member, and a tree trimming supervisor. He stated that the Lehman boys and a couple of Russians have visited him. He then stated, Maybe I have gone nuts and started laughing. He reported he graduated from the [employer] and was in the [employer] for 20 years. Therapist did a mini mental status but did not complete the last item. The second to last item ask the patient to write any sentence they want. He handed the paper back and stated, it is going to piss you off. The sentence stated, get the hell off my boat. Therapist ended the meeting shortly after this as this lead to him becoming agitated and thought that therapist was a family member and then tree trimming supervisor and was being disrespectful. He never could explain what was disrespectful and then stated he thought we should sit down and talk it out tomorrow. He apologized for confronting the therapist in front of her children and pointed at the children he was apparently seeing next to therapist (there were no children in the room). Overall symptoms observed or reported requiring current level of care include agitation, alcohol abuse/dependence, attention/concentration deficits, delusions, disorientation, hallucinations, irritability, medical problems, and memory problems. Observations/Mental Status: Michael was lying in the hospital bed when therapist arrived. He was accompanied by friend who is DPOA and who did not interfere or interrupt with the appointment. Overall appearance was unremarkable clinically. Michael appeared to be a poor historian. Observed gait and gross motor movements: where not observed. Jean general approach to the evaluation was cooperative, but he did become irritable toward the end of the meeting. Orientation was impaired x4. Michael evidenced poor understanding of the reason for the appointment. Jean in-session behavior was cooperative. The predominant mood was calm with restricted affect. Immediate attention and concentration appeared variable. Memory functioning appeared to be impaired with short-term and long- term recall difficulties. Level of intellectual functioning compared to same age peers was unable to be adequately assessed. Thought processes were found to be somewhat illogical and disjointed. Thought content was marked by hallucinations and was marked by unreality. Psychomotor functioning was within normal limits. Tone of voice was normal and controlled. Expressive speech was marked by fluent speech and language. Eye contact was minimal. Insight was poor. Overall, style of interacting during the appointment was appropriate. Current/Previous Mental Health Treatment: Past psychiatric history was reported as recently appeared depressed during the last couple of months per his DPOA. History of self or other harm: unable to assess. Abuse history: unable to asses. Family history of mental health was reported as unable to assess. Medical History: Medical conditions were reported as admitted to the hospital on 03/18/19 after his friend called for a welfare check and the police found him lying in his bed and not responding. He was found to have hypothermia, severe UTI with renal failure, and pneumonia and later surgery to remove his gallbladder. Current medications: he has Haldol and Ativan prescribed as needed and no other psychotropic medications. Drug allergies: none reported. Current physician is [facility]. Recreational Drug Usage: Substance abuse history was reported as drinks alcohol daily per the DPOA. 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 Legal History: Legal history was reported as unable to asses. Family and Social Histories: Michael currently lives in [place], [place] by himself. He reported his approximately two years ago (confirmed by his DPOA) and they were for approximately 20 years. He stated he has a daughter that lives in [place] and two sons in [place], but uncertain if this is accurate. Strengths/Weaknesses: Strengths/Resources: positive social support Liabilities/Barriers: cognitive limitations and limited support network Summary of Assessment Information/Recommendations: Michael is a 59-year-old male with no known mental health history other than recently appearing depressed per his DPOA. He was extremely confused, delusional, and hallucinated during the meeting. His medical records indicate he has been treated for infection and that he has significant alcohol use. Either of these could potentially explain his current symptoms. Therapist was able to verify with the DPOA that much of the information provided by Michael was inaccurate. It may be beneficial to determine if Michael has any family members who can provide additional information. Michael was pleasant through most of the meeting and was willing to answer questions. He did become agitated at the end and the meeting was ended a little earlier than planned. Following current assessment, presenting problem and symptoms appear consistent with a preliminary diagnosis of F05 Delirium due to multiple etiologies. Current emotional symptoms are of severe intensity. Overall, prognosis is estimated to be guarded. 1.It is recommended that he be rechecked for infection as infection can cause hallucinations and delusions. 2.If he does not have an infection a medication evaluation is recommended to determine appropriate antidepressant and antipsychotic medications to help alleviate his symptoms. 3.If his symptoms persist he may require psychiatric hospitalization to monitor and medicate. In his present state he is unable to care for himself and will need a facility or capable persons to care for him. ICD-10 Diagnostic Impressions: F05 Delirium due to multiple etiologies Rule Out: Major Depressive Disorder with Psychosis and Alcohol Dependence VITALIY CHOU LM Apr 01, 2019 09:50 POS
--- NOTE | 2019-04-01 10:11 | Discharge Inst-Skilled Nursing ---
Discharge Inst-Skilled NF Reconcile Patient Problems Problems Reviewed?: Yes Chief Complaint Chief complaint: Found down at home HPI: This is a 59yoWM clinic clinic Pt of [facility] who was brought in after being found down at home by his friend, probably for about three days. Pt was foundto be hypothermic and severe UTI with renal failure and pneumonia. Pt remains with altered mental status and appears to be gravely ill. His prognosis is extremely poor. Friend is at the bedside and does not know of any family that he has. Patient Instructions Patient Problems: Status post hypothermia Status post acute renal failure Status post delirium Goal: Return to independent living Consult/Follow Up/Orders Follow Up Appt.: [facility] shelter rounds Skilled NF Admit to: [facility] Certification (SNF) I certify that SNF services are required to be given on an inpatient basis because of the above named patient's need for half-way care on a continuing basis for the conditions(s) for which he/she was receiving inpatient hospital services prior to his/her transfer to the SNF. Detention Facility Order: Nursing Services, Museum Service Scheduler-Evaluate & Treat, Physical Therapy-Evaluate & Treat, Speech Language-Evaluate & Treat Oxygen Delivery Method: Room Air Discharge Diet: No Restrictions Daily Activity as Tolerated: Yes Resuscitation Status: Full Code New & Resume Previous Orders Tish Kilpatrick Apr 01, 2019 10:10 TISH KILPATRICK DO Apr 01, 2019 10:11 POS
--- NOTE | 2019-04-01 11:50 | Discharge Summary ---
LEI POLLOCK [facility] 04/01/19 1150: Diagnosis/Chief Complaint Date of Admission Mar 18, 2019 at 17:20 Date of Discharge Discharge Date: Apr 01, 2019 Admission Diagnosis Assessment: AMS ARF Found down at home for 3 days Cachexia ETOHism Plan: Monitor in ICU Hypothermia treatment [facility] Discharge Diagnosis (1) Hypothermia Status: Resolved (2) Acute renal failure Status: Resolved (3) DVT prophylaxis Status: Acute (4) Urinary tract infection Status: Acute (5) Severe sepsis Status: Resolved (6) Left lower lobe pneumonia Status: Acute (7) Thrombocytopenia Status: Resolved (8) Altered mental status Status: Acute (9) Elevated liver enzymes (10) Cholelithiasis Discharge Summary Discharge Physical Exam Allergies: Coded Allergies: No Known Drug Allergies (Unverified , 03/18/19) Vitals & I&Os Vital Signs Date Time Temp Pulse Resp B/P (MAP) Pulse Ox O2 Delivery O2 Flow Rate FiO2 04/01/19 08:00 36.4 74 20 168/84 (112) 98 Room Air 03/31/19 08:00 0.00 General Appearance: No Apparent Distress, WD/WN Respiratory: Chest Non Tender, Lungs Clear, Normal Breath Sounds, No Accessory Muscle Use, No Respiratory Distress Cardiovascular: Regular Rate, Rhythm; No No Edema (Minor pedal ); Normal Peripheral Pulses Skin: Normal Color, Warm/Dry Neurologic/Psychiatric: Alert, Oriented x3; No No Motor/Sensory Deficits (Mild idfficulty walking); Normal Mood/Affect, Other (Minor cognitive debility) Hospital Course Pt was admitted to ICU from the ER after being found down at his house with a r ectal temperature of 30.8C, pulse 58, and altered mental status. He was found to have severe UTI with acute renal failure and pneumonia. He was treated aggressively with IV fluids, broad spectrum antibiotics, and electrolyte replacement, alcohol withdrawal prophylaxis, DVT prophylaxis, and close monitoring of vitals. He began to recover some mentation over the next few days, but still had significant confusion and amnesia. Surgery was consulted due to a large pedunculated back mass that the patient deferred removal. An abdominal US showed gallstones and thickened wall, and a HIDA scan showed non patent cystic duct. The pt underwent cholecystectomy. He continued his recovery with minor improvements daily in mentation, but never fully returning to a normal mentation level. He was able to recover physically for the most part, but was requiring a walker for ambulation due to unsteadiness. He was discharged to snf home to continue his recovery and will likely need at minimal fdc assisted living depending on mental and physical improvements. Labs (last 24 hrs) Microbiology 03/18/19 Blood Culture - Final, Complete No growth 03/24/19 MRSA Screen - Final, Complete MRSA not isolated 03/18/19 Urine Culture - Final, Complete NO GROWTH Patient resulted labs reviewed. Discharge Home Medications: Active Scripts Active No Active Prescriptions or Reported Medications Instructions to patient/family Please see electronic discharge instructions given to patient. TISH HESS DO 04/01/192113: Diagnosis/Chief Complaint Discharge Diagnosis (1) Hypothermia Status: Resolved (2) Acute renal failure Status: Resolved (3) Left lower lobe pneumonia Status: Acute (4) Severe sepsis Status: Resolved (5) Urinary tract infection Status: Acute (6) DVT prophylaxis Status: Acute (7) Thrombocytopenia Status: Resolved (8) Altered mental status Status: Acute (9) Elevated liver enzymes (10) Cholelithiasis Discharge Summary Discharge Physical Exam Allergies: Coded Allergies: No Known Drug Allergies (Unverified , 03/18/19) General Appearance: No Apparent Distress, WD/WN, Chronically ill, Thin Respiratory: Chest Non Tender, Lungs Clear, Normal Breath Sounds, No Accessory Muscle Use, No Respiratory Distress Cardiovascular: Regular Rate, Rhythm, No Edema, No Gallop, No JVD, No Murmur, Normal Peripheral Pulses Neurologic/Psychiatric: Alert, Disoriented Hospital Course Was the Problem List Reviewed?: Yes Hospital Course: Pt had a lengthy hospital course for 2 weeks after he was admitted for hypothermia found for days at home with acute renal failure and UTI, and pneumonia. Pt had a poor prognosis but he was maintained in the ICU, aggressive IV fluids and IV antibiotics initiated and pt ultimately stabilized. Kidney function regain normalcy with creatinine at 0.7, IV fluids discontinued, pt was able to eat and drink and ambulate around but delirium was still a problem and uncertain of the complete clearance of that but he was admitted to [facility]. Discussion & Recommendations Discharge Planning: <30 minutes discharge planning Supervisory-Addendum Brief Verification & Attestation Participated in pt care: history, MDM, physical Personally performed: exam, history, MDM, supervision of care Care discussed with: Medical Student Procedures: n/a Results interpretation: Verified all documentation Verification and Attestation of Medical Student E/M Service A medical student performed and documented this service in my presence. I reviewed and verified all information documented by the medical student and made modifications to such information, when appropriate. I personally performed the physical exam and medical decision making. Tish Hess, Apr 01, 2019,21:14 Problem Qualifiers (1) Hypothermia: Encounter type: initial encounter Qualified Codes: T68.XXXA - Hypothermia, initial encounter (2) Acute renal failure: Acute renal failure type: unspecified Qualified Codes: N17.9 - Acute kidney failure, unspecified (3) Urinary tract infection: Urinary tract infection type: acute cystitis Hematuria presence: without hematuria Qualified Codes: N30.00 - Acute cystitis without hematuria (4) Left lower lobe pneumonia: Pneumonia type: due to unspecified organism Qualified Codes: J18.1 - Lobar pneumonia, unspecified organism [facility] Apr 01, 2019 11:50 TISH MENDES DO Apr 01, 2019 21:14 POS
--- NOTE | 2019-04-01 15:44 | NUR ---
Arrangements completed for pt discharge to [facility].Pt's DPOA Naresh Tam here and transported pt to the facility. Also discharge orders,physician notes and CARE assessment given to pt's DPOA to give to the facility.
[2019-04-01 16:00] VITALS: BP 168/84
[2019-04-01] MEDS: ENOXAPARIN 40 MG/0.4 ML (LOVENOX) SYR SQ SCH (16:28)
--- NOTE | 2019-04-01 17:44 | Progress Note - Surgery ---
[facility]ABRERA DALY [facility] 04/01/19 1744: Subjective Date Seen by a Provider: Apr 01, 2019 Time Seen by a Provider: 07:00 Subjective/Events-last exam Pt is alert and not oriented. No family at bedside Pt is having bowel movements and urinating without issue Tolerating food and liquids Abdominal wounds are clean, dry and intact Denies abdominal pain, N/V, SOB, F/C, and chest pain Objective Exam Vital Signs Date Time Temp Pulse Resp B/P (MAP) Pulse Ox O2 Delivery O2 Flow Rate FiO2 04/01/19 16:00 36.4 74 20 168/84 99 Room Air 0.00 04/01/19 08:00 99 Room Air 0.00 04/01/19 08:00 36.4 74 20 168/84 (112) 98 Room Air 04/01/19 05:20 36.6 66 20 152/84 (106) 96 Room Air 03/31/19 23:42 36.6 70 18 148/73 (98) 99 Room Air 03/31/19 20:00 Room Air I & O 04/01/19 07:00 Intake Total 2250 ml Output Total 700 ml Balance 1550 ml Capillary Refill : Less Than 3 SecondsLess Than 3 Seconds General Appearance: No Apparent Distress, WD/WN HEENT: PERRL/EOMI Neck: Non Tender Respiratory: Chest Non Tender, Lungs Clear, Normal Breath Sounds, No Accessory Muscle Use, No Respiratory Distress Cardiovascular: Regular Rate, Rhythm, Normal Peripheral Pulses, Other (Minor pedal edema ) Peripheral Pulses: 2+ Dorsalis Pedis (R), 2+ Left Dors-Pedis (L), 2+ Radial Pulses (R), 2+ Radial Pulses (L) Gastrointestinal: non tender (incisions c/d/i), soft Extremity: Non Tender Neurologic/Psychiatric: Alert, Disoriented Skin: Normal Color, Warm/Dry Lymphatic: No Adenopathy Results Lab Microbiology 03/18/19 Blood Culture - Final, Complete No growth 03/24/19 MRSA Screen - Final, Complete MRSA not isolated 03/18/19 Urine Culture - Final, Complete NO GROWTH Assessment/Plan Assessment/Plan Assessment/Plan s/p lap tor with ioc altered mental status LLL pneumonia back mass history of EtOH abuse - Continue medical management, there no surgical need at this time ABDOUL BULLOCK DO 04/02/19 2248: Subjective Subjective/Events-last exam tolerating diet. denies abdominal pain, still confused. Objective Exam General Appearance: No Apparent Distress HEENT: PERRL/EOMI Neck: Non Tender Respiratory: Chest Non Tender, No Accessory Muscle Use, No Respiratory Distress Cardiovascular: Regular Rate, Rhythm Gastrointestinal: non tender (incisions c/d/i), soft Extremity: Non Tender Neurologic/Psychiatric: Alert, Disoriented Skin: Normal Color, Warm/Dry Lymphatic: No Adenopathy Assessment/Plan Assessment/Plan Assessment/Plan s/p lap tor with ioc altered mental status LLL pneumonia back mass history of EtOH abuse no surgical issues at this time diet as tolerates Supervisory-Addendum Brief Verification & Attestation Participated in pt care: history, MDM, physical Personally performed: exam, history, MDM, supervision of care Care discussed with: Medical Student Procedures: n/a Results interpretation: Verified all documentation Verification and Attestation of Medical Student E/M Service A medical student performed and documented this service in my presence. I reviewed and verified all information documented by the medical student and made modifications to such information, when appropriate. I personally performed the physical exam and medical decision making. Abdoul Bullock, Apr 01, 2019,22:48 [facility] Apr 01, 2019 17:44 ABDOUL ADAM DO Apr 02, 2019 22:48 POS
== END 2019-04-01 17:25 | DRG 853 ==
LOC: EDUNIT# 14:59 → ER 15:00 → OBSVTOIN 17:20 → ICU 17:20 → INTOOBSV 17:20 → UNDOADMOB 17:20 → 4TH 03-20 15:47 → ICU 03-20 15:47 → 4TH 03-20 15:47 → UNDODISIN 04-01 17:25
PROVIDERS: ADMIT Internal Medicine; ATTEND Family Medicine
PROC: 0FT44ZZ Resection of Gallbladder, Percutaneous Endoscopic Approach (ICD-10-PCS; principal; 2019-03-26)
PROC: BF101ZZ Fluoroscopy of Bile Ducts using Low Osmolar Contrast (ICD-10-PCS; 2019-03-26)
DX: A41.9 Sepsis, unspecified organism (principal); R65.20 Severe sepsis without septic shock; T68.XXXA Hypothermia, initial encounter; J18.1 Lobar pneumonia, unspecified organism; N30.00 Acute cystitis without hematuria; N17.9 Acute kidney failure, unspecified; R64 Cachexia; E87.0 Hyperosmolality and hypernatremia; E87.3 Alkalosis; E46 Unspecified protein-calorie malnutrition; F05 Delirium due to known physiological condition; J98.11 Atelectasis; K80.10 Calculus of gallbladder with chronic cholecystitis without obstruction; R22.2 Localized swelling, mass and lump, trunk; F10.20 Alcohol dependence, uncomplicated; F17.210 Nicotine dependence, cigarettes, uncomplicated; E87.6 Hypokalemia; E83.39 Other disorders of phosphorus metabolism; E80.6 Other disorders of bilirubin metabolism; I27.20 Pulmonary hypertension, unspecified; R44.1 Visual hallucinations; D69.6 Thrombocytopenia, unspecified
CPT/HCPCS: 36415; 51702; 70450; 71045; 76700; 78226; 80048; 80053; 80076; 80306; 80320; 81000; 82140; 82550; 82805; 82962; 83605; 83735; 83874; 84100; 84484; 85007; 85025; 85027; 85610; 85730; 87040; 87081; 87088; 88304; 93005; 93306; 96361; 96374

== ENCOUNTER 2020-06-30 13:37 | Emergency (ER) | payer MEDICAID ==
[~2020-06-30] VITALS: Ht 187.9 cm; Wt 99.8 kg
[~2020-06-30 13:37] MED LIST: RT-ALBUINH IH
--- NOTE | 2020-06-30 14:04 | ED Back Pain ---
General Chief Complaint: Trauma-Non Activation Stated Complaint: FALL Nursing Triage Note: PT STATES HE FELL IN THE HALLWAY OF SNF. PT STATES HE DIDNT HIT HIS HEAD AND DENIES LOC. PT FELL ON BUTTOCKS AND BACK. PT DENIES ANY PAIN AT THIS TIME. PT STATES HE DID NOT WANT TO COME HERE AND HE IS READY TO GO BACK HOME. Nursing Sepsis Screen: No Definite Risk Source of Information: Patient Exam Limitations: No Limitations (CABRERA DALYEN) History of Present Illness Date Seen by Provider: Jun 30, 2020 Time Seen by Provider: 13:57 Initial Comments Michael is a 60 y/o male that presents to the ER from the local snf due to a fall on his back a couple of hours ago. He states the pain is 2/10 and it is dull in nature. He denies hitting his head and denies any other issues at this time. Denies radiation of pain. No upper or LE weakness or loss of sensation. Nothing makes it worse or better. He states he slipped on the floor. He denies the following: N/V, F/C, Dizziness, loss of muscle strength or sensation in extremities, SOB, Chest pain, Abdominal pain, Constipation, dysuria, and urine retention at this time. Postive for lower thoracic/upper lumbar back pain. The patient is alert to person and place. Location: Lumbar Spine, T-Spine Timing/Duration: 1-3 Hours Severity: Mild Pain/Injury Location: Back Radiation: Other (Denies) Method of Injury: Fall Associated Symptoms: denies symptoms (CABRERA DALY MED JONASEN) Allergies and Home Medications Allergies Coded Allergies: No Known Drug Allergies (Unverified , 03/18/19) Home Medications No Active Prescriptions or Reported Meds Patient Home Medication List Home Medication List Reviewed: Yes (LAZ PAYNE APRN) Review of Systems Constitutional: no symptoms reported EENTM: no symptoms reported Respiratory: no symptoms reported Cardiovascular: no symptoms reported Gastrointestinal: no symptoms reported Genitourinary: no symptoms reported Musculoskeletal: back pain Skin: no symptoms reported Psychiatric/Neurological: No Symptoms Reported (CABRERA DALY MED STUDEN) Past Iyxhxvk-Fxgolv-Wlmorh Hx Patient Social History Alcohol Use: Past History Alcohol Beverage of Choice: Beer Smoking Status: Current Everyday Smoker Type Used: Cigarettes Recent Infectious Disease Expo: No Recent Hopitalizations: No (MALIKACABRERA MED [employer]) Seasonal Allergies Seasonal Allergies: No (MALIKA,CABRERA MED [employer]) Past Medical History Surgeries: No Respiratory: No Currently Using CPAP: No Currently Using BIPAP: No Cardiac: No Neurological: Yes Dementia Genitourinary: Yes UTI-Chronic Gastrointestinal: Yes Chronic Constipation Musculoskeletal: No Endocrine: No HEENT: No Cancer: No Psychosocial: Yes Violent Behavior Integumentary: No Blood Disorders: No (MALIKA,CABRERA MED STUDEN) Family Medical History No Pertinent Family Hx (MALIKA,CABRERA MED STUDEN) Physical Exam Vital Signs Vital Signs - First Documented 06/30/20 13:37 Temp 36.5 Pulse 61 Resp 14 B/P (MAP) 96/71 (79) Pulse Ox 93 (LAZ PAYNE APRN) Vital Signs Capillary Refill : Less Than 3 Seconds (MALIKA,CABRERA MED STUDEN) Height, Weight, BMI Height: '" Weight: lbs. oz. kg; 28.00 BMI Method: General Appearance: No Apparent Distress, WD/WN HEENT: PERRL/EOMI Neck: Full Range of Motion, Normal Inspection, Non Tender Cardiovascular: Regular Rate, Rhythm, No Edema, No Gallop, Normal Peripheral Pulses Respiratory: Chest Non Tender, Lungs Clear, Normal Breath Sounds, No Accessory Muscle Use, No Respiratory Distress Peripheral Pulses: 2+ Dorsalis Pedis (R), 2+ Left Dors-Pedis (L), 2+ Radial Pulses (R), 2+ Radial Pulses (L) Gastrointestinal: No Organomegaly, No Pulsatile Mass, Non Tender, Soft Back: Normal Inspection, No CVA Tenderness, Vertebral Tenderness (T11-L1 AREA tenderness over spinous process) Extremity: No Calf Tenderness Neurologic/Psychiatric: Alert, patient financial rep II-XII Norm as Tested, Other (Oriented to person and place. ) Skin: Normal Color, Warm/Dry Lymphatic: No Adenopathy (-) straight leg test BL, equal strength in LE BL 5/5, sensation intact LE BL, (-) for following: tenderness for palpation to lateral hip, tenderness to knee and ankle. (MALIKA,CABRERA MED STUDEN) Progress/Results/Core Measures Results/Orders Lab Results Laboratory Tests Test 06/30/20 14:24 06/30/20 14:30 Range/Units White Blood Count 12.9 H 4.3-11.0 10^3/uL Red Blood Count 4.29 L 4.30-5.52 10^6/uL Hemoglobin 13.2 L 13.3-17.7 g/dL Hematocrit 41 40-54 % Mean Corpuscular Volume 95 80-99 fL Mean Corpuscular Hemoglobin 31 25-34 pg Mean Corpuscular Hemoglobin Concent 32 32-36 g/dL Red Cell Distribution Width 13.1 10.0-14.5 % Platelet Count 173 130-400 10^3/uL Mean Platelet Volume 12.1 9.0-12.2 fL Immature Granulocyte % (Auto) 1 % Neutrophils (%) (Auto) 60 42-75 % Lymphocytes (%) (Auto) 29 12-44 % Monocytes (%) (Auto) 8 0-12 % Eosinophils (%) (Auto) 1 0-10 % Basophils (%) (Auto) 1 0-10 % Neutrophils # (Auto) 7.8 1.8-7.8 10^3/uL Lymphocytes # (Auto) 3.8 1.0-4.0 10^3/uL Monocytes # (Auto) 1.0 0.0-1.0 10^3/uL Eosinophils # (Auto) 0.2 0.0-0.3 10^3/uL Basophils # (Auto) 0.1 0.0-0.1 10^3/uL Immature Granulocyte # (Auto) 0.1 0.0-0.1 10^3/uL Sodium Level 139 135-145 MMOL/L Potassium Level 4.0 3.6-5.0 MMOL/L Chloride Level 101 98-107 MMOL/L Carbon Dioxide Level 28 21-32 MMOL/L Anion Gap 10 5-14 MMOL/L Blood Urea Nitrogen 16 7-18 MG/DL Creatinine 0.97 0.60-1.30 MG/DL Estimat Glomerular Filtration Rate > 60 BUN/Creatinine Ratio 16 Glucose Level 95 70-105 MG/DL Calcium Level 9.2 8.5-10.1 MG/DL Corrected Calcium 9.0 8.5-10.1 MG/DL Total Bilirubin 0.5 0.1-1.0 MG/DL Aspartate Amino Transf (AST/SGOT) 16 5-34 U/L Alanine Aminotransferase (ALT/SGPT) 17 0-55 U/L Alkaline Phosphatase 68 40-136 U/L Total Protein 7.9 6.4-8.2 GM/DL Albumin 4.2 3.2-4.5 GM/DL Urine Color YELLOW Urine Clarity CLEAR Urine pH 6.0 5-9 Urine Specific Blount 1.020 1.016-1.022 Urine Protein NEGATIVE NEGATIVE Urine Glucose (UA) NEGATIVE NEGATIVE Urine Ketones NEGATIVE NEGATIVE Urine Nitrite NEGATIVE NEGATIVE Urine Bilirubin NEGATIVE NEGATIVE Urine Urobilinogen 0.2 < = 1.0 MG/DL Urine Leukocyte Esterase NEGATIVE NEGATIVE Urine RBC (Auto) NEGATIVE NEGATIVE Urine RBC NONE /HPF Urine WBC NONE /HPF Urine Squamous Epithelial Cells 0-2 /HPF Urine Crystals NONE /LPF Urine Bacteria NEGATIVE /HPF Urine Casts NONE /LPF Urine Mucus NEGATIVE /LPF Urine Culture Indicated NO (LAZ PAYNE APRN) My Orders Orders - LAZ PAYNE APRN Lumbar Spine - 2-3 Views (06/30/20 13:55) Ua Culture If Indicated (06/30/20 14:16) Cbc With Automated Diff (06/30/20 14:16) Comprehensive Metabolic Panel (06/30/20 14:16) (LAZ PAYNE APRN) Vital Signs/I&O 06/30/20 13:37 Temp 36.5 Pulse 61 Resp 14 B/P (MAP) 96/71 (79) Pulse Ox 93 (LAZ PAYNE APRN) Blood Pressure Mean: 79 Progress Progress Note : Time: 14:09 Progress Note Patient is alert and oriented to person and place. He is not sure why the snf sent him. Patient has minimal tenderness over the T12-L1 spinous process. Recommend xray of the thorax/lumbar spine to rule out pathology. Additionally, will obtain CBC, CMP and UA. Patient is in agreement with this plan. (CABRERA DALY) Departure Communication (Admissions) 1500-I have seen the patient as well and agree with the plan of care. The x-ray is unremarkable. He has minimal tenderness to palpation over the mid lumbar spine. This pain is midline. There is no abrasion ecchymosis or erythema. He sits up in bed on his own accord without assistance. No other evidence of injury. (LAZ PAYNE APRN) Impression Primary Impression: Low back pain Additional Impression: Fall Disposition: 01 HOME, SELF-CARE Condition: Stable Departure-Patient Inst. Decision time for Depature: 14:58 (LAZ PAYNE APRN) Referrals: [facility] (PCP/Family) Primary Care Physician Patient Instructions: Low Back Pain ED Add. Discharge Instructions: 1. Return to ER for any concerns All discharge instructions reviewed with patient and/or family. Voiced understanding. Scripts No Active Prescriptions or Reported Meds CABRERA DALY STUDSHARON Jun 30, 2020 14:04 LAZ PAYNE APRN Jun 30, 2020 15:00
--- NOTE | 2020-06-30 14:26 | Diagnostic Imaging Report ---
INDICATION: Pain post fall TECHNIQUE: AP, Lateral and Spot imaging of the lumbar spine CORRELATION STUDY: None FINDINGS: Slight anterior wedging T12 and L1 vertebral bodies. Lumbar vertebral body heights overall are otherwise maintained. No acute appearing compression deformity. Disc spaces overall fairly well-maintained. There is mild hypertrophic change about the lower lumbar spine. There is vascular opacification abdominal aorta. SI joints are unremarkable. Cholecystectomy clips right upper quadrant. IMPRESSION: No radiographic evidence for acute bony abnormality of the lumbar spine. Mild degenerative changes present. Dictated by: Dictated on workstation # [id number]
[2020-06-30 14:30] LABS: BASOPHILS # (AUTO) 0.1 10^3/uL (0.0-0.1); BASOPHILS % (AUTO) 1 % (0-10); EOSINOPHILS # (AUTO) 0.2 10^3/uL (0.0-0.3); EOSINOPHILS % (AUTO) 1 % (0-10); HEMATOCRIT 41 % (40-54); HEMOGLOBIN 13.2 g/dL (13.3-17.7); LYMPHOCYTES # (AUTO) 3.8 10^3/uL (1.0-4.0); LYMPHOCYTES % (AUTO) 29 % (12-44); MEAN CORPUSCULAR HEMOGLOBIN 31 pg (25-34); MEAN CORPUSCULAR HGB CONC 32 g/dL (32-36); MEAN CORPUSCULAR VOLUME 95 fL (80-99); MEAN PLATELET VOLUME 12.1 fL (9.0-12.2); MONOCYTES % (AUTO) 8 % (0-12); NEUTROPHILS # (AUTO) 7.8 10^3/uL (1.8-7.8); NEUTROPHILS % (AUTO) 60 % (42-75); PLATELET COUNT 173 10^3/uL (130-400); WHITE BLOOD COUNT 12.9 10^3/uL (4.3-11.0)
[2020-06-30 14:41] LABS: BILIRUBIN,URINE NEGATIVE (NEGATIVE); CLARITY,URINE CLEAR; COLOR,URINE YELLOW; GLUCOSE, URINE (UA) NEGATIVE (NEGATIVE); KETONES,URINE NEGATIVE (NEGATIVE); LEUKOCYTE ESTERASE ,URINE NEGATIVE (NEGATIVE); NITRITE,URINE NEGATIVE (NEGATIVE); PROTEIN,URINE NEGATIVE (NEGATIVE)
[2020-06-30 14:41] LABS: ALBUMIN 4.2 GM/DL (3.2-4.5); CHLORIDE 101 MMOL/L (98-107); SODIUM 139 MMOL/L (135-145)
[2020-06-30 14:42] LABS: CALCIUM 9.2 MG/DL (8.5-10.1)
[2020-06-30 14:44] LABS: GLUCOSE 95 MG/DL (70-105); TOTAL PROTEIN 7.9 GM/DL (6.4-8.2)
[2020-06-30 14:45] LABS: BILIRUBIN,TOTAL 0.5 MG/DL (0.1-1.0); CARBON DIOXIDE 28 MMOL/L (21-32)
[2020-06-30 14:47] LABS: ALKALINE PHOSPHATASE 68 U/L (40-136); CREATININE SERUM 0.97 MG/DL (0.60-1.30); GFR ESTIMATED > 60
[2020-06-30 14:48] LABS: BUN/CREATININE RATIO 16
[2020-06-30 14:50] LABS: ALANINE AMINOTRANSFERASE 17 U/L (0-55)
[2020-06-30 14:53] LABS: BACTERIA,URINE NEGATIVE /HPF; SQUAMOUS EPITHELIAL CELL,UR 0-2 /HPF
[2020-06-30] MEDS ORDERED: NS IV 1000 ML 1,000 ML IV SCH (15:15)
[2020-06-30 15:31] VITALS: BP 106/65
== END 2020-06-30 15:35 | disposition home or self-care (01) ==
LOC: EDUNIT# 13:37 → ER 13:39
DX: M54.5 Low back pain (principal); F17.210 Nicotine dependence, cigarettes, uncomplicated
CPT/HCPCS: 36415; 72100; 80053; 81000; 85025

== ENCOUNTER 2022-01-03 07:04 | Outpatient (CLI) | payer MEDICAID ==
[~2022-01-03] VITALS: Ht 177.8 cm; Wt 95.5 kg
[2022-01-08] MEDS ORDERED: RISP0.5T18 PO (11:10)
[2022-01-08] MEDS ORDERED: MEMA10TA57 PO (11:10)
[2022-01-08] MEDS ORDERED: MELA1TAB27 PO (11:10)
[2022-01-08] MEDS ORDERED: FURO40TA4 PO (11:10)
[2022-01-08] MEDS ORDERED: LEVO50TA6 PO (11:10)
[2022-01-08] MEDS ORDERED: TRZ50T PO (11:10)
[2022-01-08] MEDS ORDERED: ESCI-2 PO (11:10)
[2022-01-08] MEDS ORDERED: POLY119P5 PO (11:10)
[2022-01-08] MEDS ORDERED: THIA100T80 PO (11:10)
[2022-01-08] MEDS ORDERED: MULT-593 PO (11:10)
[2022-01-08] MEDS ORDERED: FOLI1TAB33 PO (11:10)
== END 2022-01-08 11:10 ==
LOC: PREOP 07:04
PROVIDERS: ATTEND Specialist
DX: Z01.818 Encounter for other preprocedural examination (principal); H26.9 Unspecified cataract

== ENCOUNTER 2022-01-12 06:45 | Day surgery (SDC) | payer MEDICARE, MEDICAID ==
[~2022-01-12] VITALS: Ht 177.8 cm; Wt 95.5 kg
[~2022-01-12 06:45] MED LIST changes: +ESCI-2 PO; +FOLI1TAB33 PO; +FURO40TA4 PO; +LEVO50TA6 PO; +MELA1TAB27 PO; +MEMA10TA57 PO; +MULT-593 PO; +POLY119P5 PO; +RISP0.5T18 PO; +THIA100T80 PO; +TRZ50T PO
[2022-01-12] MEDS ORDERED: TIMOLOL MALEATE 0.5% 5 ML (TIMOPTIC) BTL OU PRN (07:00)
[2022-01-12] MEDS ORDERED: MOXIFLOXACIN OPHTH SOLN 5 MG/ML 0.3 ML SYRINGE OP ONE (07:00)
[2022-01-12] MEDS ORDERED: POVIDONE (BETADINE) OPHTH SOLN 5% 30 ML OP ONE (07:00)
[2022-01-12] MEDS: TETRACAINE 0.5% OPHTH SOLN 4 ML BTL (SINGLE DOSE ONLY) OU PRN ×4 (07:04→07:26)
[2022-01-12 07:11] VITALS: BP 117/63
[2022-01-12] MEDS: PHENYLEPHRINE 10% OPHTH (NEO-SYN) 5 ML BTL OU SCH ×3 (07:15→07:26)
[2022-01-12] MEDS: TROPICAMIDE 1% OPH SOLN (MYDRIACYL) 15 ML BTL OP SCH ×3 (07:15→07:26)
--- NOTE | 2022-01-12 08:07 | Ophthalmologist Pre-Op Note ---
Pre-Operative Progress Note H&P Reviewed The H&P was reviewed, patient examined and no changes noted. Date H&P Reviewed: Jan 12, 2022 Time H&P Reviewed: 08:07 Pre-Op Dx Cataract, Right Eye ROBERT NELSON MD Jan 12, 2022 08:07
[2022-01-12] MEDS ORDERED: MIDAZOLAM 2 MG/2 ML (VERSED) VIAL ONE (08:14)
[2022-01-12] MEDS ORDERED: acetaZOLAMIDE ER 500 MG CAP (DIAMOX SEQUELS) PO ONE (08:30)
--- NOTE | 2022-01-12 08:36 | Ophthalmology Operative Report ---
Cataract removal/placement IOL PREOPERATIVE DIAGNOSIS: 1. Mature Cataract Right Eye 2. Stain the anterior capsule with Vision Blue. POSTOPERATIVE DIAGNOSIS: 1. Mature Cataract Right Eye 2. Stain the anterior capsule with Vision Blue. PROCEDURE: 1. Cataract removal and placement of posterior chamber implant, right eye. 2. Stain the anterior capsule with Vision Blue. SURGEON: Mihir Nelson ANESTHESIA: Topical with sedation COMPLICATIONS: None ESTIMATED BLOOD LOSS: Minimal DESCRIPTION OF PROCEDURE: After proper informed consent was obtained, the patient was taken to the Operating Room and the right eye was anesthetized with tetracaine. The right eye was then prepped and draped in the usual manner. A wire lid speculum was placed. A paracentesis was made at the left hand position. Preservative free lidocaine was injected into anterior chamber followed by viscoelastic. A clear corneal incision was made in the temporal position. A capsulorrhexis was performed and the central nuclear and cortical material were removed. Vision blue was used to visualize capsule. The posterior capsule was polished and Cooper 16.0 AU00T0 IOL was placed into the capsular bag. The residual viscoela stic was aspirated and balanced saline solution was injected into the anterior chamber. Moxifloxacin was injected into the anterior chamber. The wound was checked and found to be water tight. The patient tolerated the procedure well without complications. MIHIR NELSON MD Jan 12, 2022 08:36
[2022-01-12 08:45] VITALS: BP 109/74
--- NOTE | 2022-01-12 12:37 | Anesthesia-General Post-Op ---
MAC Patient Condition Mental Status/LOC: Same as Preop Cardiovascular: Satisfactory Nausea/Vomiting: Absent Respiratory: Satisfactory Pain: Controlled Complications: Absent Post Op Complications Complications None Follow Up Care/Instructions Patient Instructions None needed. Anesthesiology Discharge Order Discharge Order Patient is doing well, no complaints, stable vital signs, no apparent adverse anesthesia problems. No complications reported per nursing. ISRAEL LEO CRNA Jan 12, 2022 12:37
== END 2022-01-12 08:53 ==
LOC: SDC 06:45
PROVIDERS: ATTEND Specialist
DX: H25.89 Other age-related cataract (principal); F17.200 Nicotine dependence, unspecified, uncomplicated
CPT/HCPCS: 66984; V2632

== ENCOUNTER 2022-01-22 05:32 | Outpatient (CLI) | payer MEDICARE, MEDICAID ==
[~2022-01-22] VITALS: Ht 182.9 cm; Wt 94.1 kg
== END 2022-01-22 11:42 | disposition home or self-care (01) ==
LOC: PREOP 05:32
PROVIDERS: ATTEND Specialist
DX: Z01.818 Encounter for other preprocedural examination (principal)

== ENCOUNTER 2022-01-26 07:05 | Day surgery (SDC) | payer MEDICARE, MEDICAID ==
[~2022-01-26] VITALS: Ht 182.9 cm; Wt 94.1 kg
[2022-01-26] MEDS ORDERED: acetaZOLAMIDE ER 500 MG CAP (DIAMOX SEQUELS) PO ONE (07:15)
[2022-01-26] MEDS ORDERED: POVIDONE (BETADINE) OPHTH SOLN 5% 30 ML OP ONE (07:15)
[2022-01-26] MEDS ORDERED: MOXIFLOXACIN OPHTH SOLN 5 MG/ML 0.3 ML SYRINGE OP ONE (07:15)
[2022-01-26] MEDS ORDERED: TIMOLOL MALEATE 0.5% 5 ML (TIMOPTIC) BTL OU PRN (07:15)
[2022-01-26 07:16] VITALS: BP 104/67
[2022-01-26] MEDS: TROPICAMIDE 1% OPH SOLN (MYDRIACYL) 15 ML BTL OP SCH ×3 (07:24→07:34)
[2022-01-26] MEDS: TETRACAINE 0.5% OPHTH SOLN 4 ML BTL (SINGLE DOSE ONLY) OU PRN ×3 (07:24→07:34)
[2022-01-26] MEDS: PHENYLEPHRINE 10% OPHTH (NEO-SYN) 5 ML BTL OU SCH ×3 (07:24→07:34)
[2022-01-26] MEDS ORDERED: MIDAZOLAM 2 MG/2 ML (VERSED) VIAL ONE (08:00)
--- NOTE | 2022-01-26 08:15 | Ophthalmologist Pre-Op Note ---
Pre-Operative Progress Note H&P Reviewed The H&P was reviewed, patient examined and no changes noted. Date H&P Reviewed: Jan 26, 2022 Time H&P Reviewed: 08:15 Pre-Op Dx Cataract, Left Eye ROBERT NELSON MD Jan 26, 2022 08:15
--- NOTE | 2022-01-26 08:39 | Ophthalmology Operative Report ---
Cataract removal/placement IOL PREOPERATIVE DIAGNOSIS: 1. Mature Cataract Left Eye 2. Stain the anterior capsule with Vision Blue. POSTOPERATIVE DIAGNOSIS: 1. Mature Cataract Left Eye 2. Stain the anterior capsule with Vision Blue. PROCEDURE: 1. Cataract removal and placement of posterior chamber implant, left eye. 2. Stain the anterior capsule with Vision Blue. SURGEON: Mihir Nelson ANESTHESIA: Topical with sedation COMPLICATIONS: None ESTIMATED BLOOD LOSS: Minimal DESCRIPTION OF PROCEDURE: After proper informed consent was obtained, the patient, 61 male ,was taken to the Operating Room and the left eye was anesthetized with tetracaine. The left eye was then prepped and draped in the usual manner. A wire lid speculum was placed. A paracentesis was made at the left hand position. Preservative free lidocaine was injected into anterior chamber followed by viscoelastic. A clear corneal incision was made in the temporal position. A capsulorrhexis was performed and the central nuclear and cortical material were removed. Vision blue was used to visualize capsule. The posterior capsule was polished and Cooper 17.5 AU00T0 IOL was placed into the capsular bag. The residual vi scoelastic was aspirated and balanced saline solution was injected into the anterior chamber. Moxifloxacin was injected into the anterior chamber. The wound was checked and found to be water tight. The patient tolerated the procedure well without complications. MIHIR NELSON MD Jan 26, 2022 08:39
--- NOTE | 2022-01-26 14:39 | Anesthesia-General Post-Op ---
MAC Patient Condition Mental Status/LOC: Same as Preop Cardiovascular: Satisfactory Nausea/Vomiting: Absent Respiratory: Satisfactory Pain: Controlled Complications: Absent Post Op Complications Complications None Follow Up Care/Instructions Patient Instructions None needed. Anesthesiology Discharge Order Discharge Order Patient is doing well, no complaints, stable vital signs, no apparent adverse anesthesia problems. No complications reported per nursing. MARIBEL KHAN CRNA Jan 26, 2022 14:39
== END 2022-01-26 08:59 ==
LOC: SDC 07:05
PROVIDERS: ATTEND Specialist
DX: H25.89 Other age-related cataract (principal); F17.200 Nicotine dependence, unspecified, uncomplicated
CPT/HCPCS: 66984; V2632

== ENCOUNTER 2022-04-17 16:32 | Emergency (ER) | payer MEDICARE, MEDICAID ==
[~2022-04-17] VITALS: Ht 188 cm; Wt 90.7 kg
[~2022-04-17 16:32] MED LIST changes: +ALBU8.5H6 IH; -RT-ALBUINH IH
[2022-04-17] MEDS ORDERED: RX-OSELTAMIVIR 75 MG (TAMIFLU) BOX OF 10 PO STA (16:51)
[2022-04-17] MEDS ORDERED: IBUPROFEN 600 MG (MOTRIN) TAB PO ONE (17:00)
--- NOTE | 2022-04-17 17:09 | Diagnostic Imaging Report ---
INDICATION: Fever and cough Frontal chest obtained at 0453 p.m. and compared with 03/23/2019 The heart is mildly enlarged. There is peribronchial thickening with patchy bilateral infiltrate. There is no pneumothorax or pleural fluid. IMPRESSION: Peribronchial thickening with some patchy bibasilar infiltrate versus atelectasis. No pneumothorax or pleural fluid. Dictated by: Dictated on workstation # [id number]
--- NOTE | 2022-04-17 17:15 | ED Cough/URI ---
General Chief Complaint: Cough/Cold/Flu Symptoms Stated Complaint: FLU A Nursing Triage Note: PT TO RM [facility] VIA [facility] FROM [facility]. EMS ADVISES PT TESTED FLU A + THIS AM, PT C/O FEVER AND COUGH. PT DOES NOT WEAR HOME O2, PT SPO2 91% ON RA. PT A&OX4, EMS INITIATED 20G LAC SL PATENT UPON ARRIVAL TO ED W NS INFUSING. Source: patient, EMS notes reviewed Exam Limitations: no limitations History of Present Illness Date Seen by Provider: Apr 17, 2022 Time Seen by Provider: 16:42 Initial Comments This is a 62-year-old male who presented the ER via [facility] from [facility]. He is currently rehabbing after a knee replacement surgery a few weeks ago. Today he tested positive for influenza A. [facility] states that he had a fever of 105 to the facility and they administered 650 mg of Tylenol. He was found to have an oxygen saturation of 91% on room air. He was placed on oxygen and sent to the emergency department for further evaluation. Upon arrival he is complaints of body aches but does not have any complaints of shortness of breath, chest pain, nausea, vomiting, abdominal pain. Allergies and Home Medications Allergies Coded Allergies: No Known Drug Allergies (Unverified , 03/18/19) Patient Home Medication List Home Medication List Reviewed: Yes Doxycycline Monohydrate (Monodox) 100 Mg Capsule, 100 MG PO BID Prescribed by: JORGE LUIS PEREZ on 04/17/22 0191 Escitalopram Oxalate (Escitalopram Oxalate) 10 Mg Tablet, 10 MG PO DAILY, (Reported) Entered as Reported by: OMAIRA KAPLAN on 01/08/22 111 Folic Acid (Folic Acid) 1 Mg Tablet, 1 MG PO DAILY, (Reported) Entered as Reported by: OMAIRA KAPLAN on 01/08/22 111 Furosemide (Furosemide) 40 Mg Tablet, 40 MG PO DAILY, (Reported) Entered as Reported by: OMAIRA KAPLAN on 01/08/22 111 Levothyroxine Sodium (Levothyroxine Sodium) 50 Mcg Tablet, 50 MCG PO DAILY, (Reported) Entered as Reported by: OMAIRA KAPLAN on 01/08/22 1110 Melatonin/Pyridoxine HCl (B6) (Melatonin 3 mg Tablet) 3 Mg-10 Mg Tablet, 3 MG PO HS, (Reported) Entered as Reported by: OMAIRA KAPLAN on 01/08/221109 Memantine HCl (Memantine HCl) 10 Mg Tablet, 10 MG PO BID, (Reported) Entered as Reported by: OMAIRA KAPLAN on 01/08/221109 Multivitamin with Minerals (Multiple Vitamin) 1 Each Tablet, 1 EACH PO DAILY, (Reported) Entered as Reported by: OMAIRA KAPLAN on 01/08/221109 Polyethylene Glycol 3350 (Miralax) 17 Gram/Dose Powder, 17 GM PO DAILY, (R eported) Entered as Reported by: OMAIRA KAPLAN on 01/08/221109 Risperidone (Risperidone) 0.5 Mg Tab.rapdis, 0.5 MG PO BID, (Reported) Entered as Reported by: OMAIRA KAPLAN on 01/08/221109 Thiamine HCl (Vitamin B-1) 100 Mg Tablet, 100 MG PO DAILY, (Reported) Entered as Reported by: OMAIRA KAPLAN on 01/08/221109 Trazodone HCl (Trazodone HCl) 50 Mg Tablet, 50 MG PO HS, (Reported) Entered as Reported by: OMAIRA KAPLAN on 01/08/221109 Review of Systems Review of Systems Constitutional: see HPI Past Jpxkput-Ooayew-Znrvzi Hx Patient Social History Tobacco Use?: Yes Tobacco type used: Cigarettes Smoking Status: Current Everyday Smoker Use of E-Cig and/or Vaping dev: No Substance use?: No Alcohol Use?: Yes Alcohol type: Beer Alcohol Frequency: Couple times a week Immunizations Up To Date Influenza Vaccine Up-to-Date: No; Not Current First/Initial COVID19 Vaccinat: [facility] Second COVID19 Vaccination Jani: [facility] Third COVID19 Vaccination Date: k COVID19 Vaccine Applications [employer]: [facility] Seasonal Allergies Seasonal Allergies: No Past Medical History Surgeries: No Respiratory: No Currently Using CPAP: No Currently Using BIPAP: No Cardiac: No Neurological: Yes Dementia Genitourinary: Yes UTI-Chronic Gastrointestinal: Yes Chronic Constipation Musculoskeletal: No Endocrine: No HEENT: No Cancer: No Psychosocial: Yes Violent Behavior Integumentary: No Blood Disorders: No Family Medical History No Pertinent Family Hx Physical Exam Vital Signs - First Documented 04/17/22 16:36 Temp 39.3 Pulse 80 Resp 24 B/P (MAP) 113/64 (80) Pulse Ox 95 O2 Delivery Nasal Cannula O2 Flow Rate 2.00 Capillary Refill : Height: '" Weight: lbs. oz. kg; 25.00 BMI Method: General Appearance: WD/WN, no apparent distress Eyes: Bilateral Eye Normal Inspection, Bilateral Eye PERRL, Bilateral Eye EOMI HEENT: PERRL/EOMI, normal ENT inspection, pharynx normal Neck: full range of motion, normal inspection Respiratory: lungs clear, normal breath sounds, no respiratory distress, no accessory muscle use Cardiovascular: regular rate, rhythm Gastrointestinal: normal bowel sounds, non tender, soft Extremities: normal range of motion, normal inspection, normal capillary refill Neurologic/Psychiatric: no motor/sensory deficits, alert, normal mood/affect, oriented x 3 Skin: normal color, warm/dry Progress/Results/Core Measures Suspected Sepsis SIRS Temperature: Pulse: 80 Respiratory Rate: 24 Laboratory Tests 04/17/22 16:36: White Blood Count 12.9H Blood Pressure 113 /64 Mean: 80 Laboratory Tests 04/17/22 16:36: Creatinine 1.00, Platelet Count 196, Total Bilirubin 0.4 Results/Orders Lab Results Laboratory Tests Test 04/17/22 16:36 Range/Units White Blood Count 12.9 H 4.3-11.0 10^3/uL Red Blood Count 4.01 L 4.30-5.52 10^6/uL Hemoglobin 12.5 L 13.3-17.7 g/dL Hematocrit 38 L 40-54 % Mean Corpuscular Volume 94 80-99 fL Mean Corpuscular Hemoglobin 31 25-34 pg Mean Corpuscular Hemoglobin Concent 33 32-36 g/dL Red Cell Distribution Width 13.7 10.0-14.5 % Platelet Count 196 130-400 10^3/uL Mean Platelet Volume 12.3 H 9.0-12.2 fL Immature Granulocyte % (Auto) 1 % Neutrophils (%) (Auto) 85 H 42-75 % Lymphocytes (%) (Auto) 5 L 12-44 % Monocytes (%) (Auto) 8 0-12 % Eosinophils (%) (Auto) 0 0-10 % Basophils (%) (Auto) 1 0-10 % Neutrophils # (Auto) 11.0 H 1.8-7.8 10^3/uL Lymphocytes # (Auto) 0.7 L 1.0-4.0 10^3/uL Monocytes # (Auto) 1.1 H 0.0-1.0 10^3/uL Eosinophils # (Auto) 0.0 0.0-0.3 10^3/uL Basophils # (Auto) 0.1 0.0-0.1 10^3/uL Immature Granulocyte # (Auto) 0.1 0.0-0.1 10^3/uL Neutrophils % (Manual) 87 % Lymphocytes % (Manual) 1 % Monocytes % (Manual) 12 % Blood Morphology Comment NORMAL Sodium Level 136 135-145 MMOL/L Potassium Level 3.7 3.6-5.0 MMOL/L Chloride Level 104 98-107 MMOL/L Carbon Dioxide Level 24 21-32 MMOL/L Anion Gap 8 5-14 MMOL/L Blood Urea Nitrogen 14 7-18 MG/DL Creatinine 1.00 0.60-1.30 MG/DL Estimat Glomerular Filtration Rate 85 BUN/Creatinine Ratio 14 Glucose Level 101 70-105 MG/DL Calcium Level 8.9 8.5-10.1 MG/DL Corrected Calcium 9.1 8.5-10.1 MG/DL Total Bilirubin 0.4 0.1-1.0 MG/DL Aspartate Amino Transf (AST/SGOT) 20 5-34 U/L Alanine Aminotransferase (ALT/SGPT) 16 0-55 U/L Alkaline Phosphatase 59 40-136 U/L Total Protein 7.3 6.4-8.2 GM/DL Albumin 3.8 3.2-4.5 GM/DL My Orders Orders - JORGE LUIS PEREZ AC[employer] Chest 1 View, Ap/Pa Only (04/17/22 16:39) Ibuprofen Tablet (Motrin Tablet) (04/17/22 17:00) Rx-Oseltamivir Caps (Rx-Tamiflu Caps) (04/17/22 16:51) Cbc With Automated Diff (04/17/22 17:16) Comprehensive Metabolic Panel (04/17/22 17:16) Manual Differential (04/17/22 16:36) Doxycycline Hyclate Tablet (Vibramycin T (04/17/22 17:45) Medications Given in ED Current Medications Medications Dose Ordered Sig/Miguel A Route Start Time Stop Time Status Last Admin Dose Admin Doxycycline Hyclate 100 mg ONCE ONCE PO 04/17/22 17:45 04/17/22 17:46 DC 04/17/22 17:45 100 MG Ibuprofen 600 mg ONCE ONCE PO 04/17/22 17:00 04/17/22 17:01 DC 04/17/22 17:02 600 MG Vital Signs/I&O 04/17/22 04/17/22 04/17/22 16:36 17:02 18:00 Temp 39.3 39.3 38.3 Pulse 80 82 Resp 24 20 B/P (MAP) 113/64 (80) 114/64 Pulse Ox 95 94 O2 Delivery Nasal Cannula Room Air O2 Flow Rate 2.00 Capillary Refill : Blood Pressure Mean: 80 Diagnostic Imaging Diagonstic Imaging: Xray Plain Films/CT/US/NM/MRI: chest Comments [facility] [place] [place] NAME: MARGARITO MERRITT [facility] REC#: [id number] PT STATUS: DEP ER : 1960 PHYSICIAN: JORGE LUIS PEREZ ACETY[employer]E [employer] M[employer] ADMIT DATE: 04/17/22/ER Signed Date of Exam:04/17/22 CHEST 1 VIEW, AP/PA ONLY INDICATION: Fever and cough Frontal chest obtained at 0453 p.m. and compared with 03/23/2019 The heart is mildly enlarged. There is peribronchial thickening with patchy bilateral infiltrate. There is no pneumothorax or pleural fluid. IMPRESSION: Peribronchial thickening with some patchy bibasilar infiltrate versus atelectasis. No pneumothorax or pleural fluid. Dictated by: Dictated on workstation # [id number] Dict: 04/17/226 Trans: 04/17/[address] [facility] [id number] Interpreted by: JENNIFER SESAY MD Electronically signed by: JENNIFER SESAY MD 04/17/22 183 Departure Impression Primary Impression: Influenza with pneumonia Disposition: 01 HOME, SELF-CARE Condition: Improved Departure-Patient Inst. Decision time for Depature: 17:14 Referrals: [facility] (PCP/Family) Primary Care Physician Patient Instructions: Flu, Adult ED, Pneumonia, Adult ED Add. Discharge Instructions: Plan: 1. May take Tylenol 1000 mg every 8 hours as needed as well as ibuprofen 600 mg every 6 hours as needed for fever and discomfort. 2. Take Tamiflu twice a day as directed to complete full course. 3. Supplemental oxygen as needed to keep O2 saturations above 94%. 4. Take Doxycycline 100mg by mouth twice a day for 10 days. 5. Return to the ER for any new, concerning, worsening symptoms. All discharge instructions reviewed with patient and/or family. Voiced understanding. Scripts Doxycycline Monohydrate (Monodox) 100 Mg Capsule 100 MG PO BID for 10 Days, #19 CAP 0 Refills Prov: JORGE LUIS PEREZ [employer] 04/17/22 JORGE LUIS PEREZ ACETYLENE [employer]ER Apr 17, 2022 17:15
[2022-04-17 17:22] LABS: BASOPHILS # (AUTO) 0.1 10^3/uL (0.0-0.1); BASOPHILS % (AUTO) 1 % (0-10); EOSINOPHILS % (AUTO) 0 % (0-10); HEMATOCRIT 38 % (40-54); HEMOGLOBIN 12.5 g/dL (13.3-17.7); LYMPHOCYTES # (AUTO) 0.7 10^3/uL (1.0-4.0); LYMPHOCYTES % (AUTO) 5 % (12-44); MEAN CORPUSCULAR HEMOGLOBIN 31 pg (25-34); MEAN CORPUSCULAR HGB CONC 33 g/dL (32-36); MEAN CORPUSCULAR VOLUME 94 fL (80-99); MEAN PLATELET VOLUME 12.3 fL (9.0-12.2); MONOCYTES # (AUTO) 1.1 10^3/uL (0.0-1.0); MONOCYTES % (AUTO) 8 % (0-12); NEUTROPHILS % (AUTO) 85 % (42-75); PLATELET COUNT 196 10^3/uL (130-400); WHITE BLOOD COUNT 12.9 10^3/uL (4.3-11.0)
[2022-04-17 17:25] LABS: ALBUMIN 3.8 GM/DL (3.2-4.5); POTASSIUM 3.7 MMOL/L (3.6-5.0)
[2022-04-17 17:26] LABS: CALCIUM 8.9 MG/DL (8.5-10.1)
[2022-04-17 17:28] LABS: TOTAL PROTEIN 7.3 GM/DL (6.4-8.2)
[2022-04-17 17:29] LABS: BILIRUBIN,TOTAL 0.4 MG/DL (0.1-1.0)
[2022-04-17] MEDS ORDERED: DOXY100C55 PO (17:35)
[2022-04-17 17:41] LABS: LYMPHOCYTES % (MANUAL) 1 %; MONOCYTES % (MANUAL) 12 %; NEUTROPHILS % (MANUAL) 87 %; RBC MORPH NORMAL
[2022-04-17] MEDS ORDERED: DOXYCYCLINE 100 MG (VIBRAMYCIN) TABLET PO ONE (17:45)
[2022-04-17 18:00] VITALS: BP 114/64
== END 2022-04-17 18:00 | disposition home or self-care (01) ==
LOC: EDUNIT# 16:32 → ER 16:33
DX: J11.1 Influenza due to unidentified influenza virus with other respiratory manifestations (principal); J18.9 Pneumonia, unspecified organism; F17.210 Nicotine dependence, cigarettes, uncomplicated; Z28.310 Unvaccinated for COVID-19
CPT/HCPCS: 36415; 71045; 80053; 85007; 85027